=== PATIENT | male | born 1985 | race Caucasian/White ===

== ENCOUNTER 2017-01-12 19:39 | Inpatient (IN) | payer BC ==
[~2017-01-12 19:39] MED LIST: ROCURONIUM BROMIDE INJ 50 MG/5 ML VIAL IV ONE
[2017-01-12] MEDS ORDERED: KETAMINE HCL INJ 500 MG/10 ML VIAL ONE (19:48)
[2017-01-12] MEDS ORDERED: FENTANYL CITRATE INJ/PF 100 MCG/2 ML AMPUL IV PRN (19:58)
[2017-01-12] MEDS ORDERED: NORMAL SALINE 1000 ML 3,000 ML IV ONE (19:58)
[2017-01-12] MEDS ORDERED: KETAMINE HCL INJ 500 MG/10 ML VIAL IV ONE (19:59)
[2017-01-12] MEDS ORDERED: ROCURONIUM BROMIDE INJ 50 MG/5 ML VIAL IV ONE (19:59)
--- NOTE | 2017-01-12 20:02 | ER Document Report ---
ED General - General Stated Complaint: UNCONSCIOUS Time Seen by Provider: 01/12/17 19:56 Cannot obtain history due to: Intoxicated, Unstable vital signs, Altered mental status Notes: Patient is a 31-year-old male with unknown past medical history who presents by EMS after being found obtunded, altered in his camper. Found by family when he did not show to work. No additional history can be obtained at time of arrival as patient is completely comatose. - Related Data Allergies/Adverse Reactions: No Known Allergies Allergy (Unverified 01/12/17 21:14) Home Medications: Current Home Medications Unobtainable [Unobtainable] 01/12/17 [History] Past Medical History - General Information source: Emergency Med Personnel Cannot obtain history due to: Intoxicated, Altered mental status - Social History Smoking Status: Unknown if Ever Smoked Frequency of alcohol use: None Drug Abuse: None Lives with: Family Family History: Reviewed & Not Pertinent Review of Systems - Review of Systems -: Yes ROS unobtainable due to patient's medical condition Physical Exam - Vital signs Vitals: Resp Pulse Ox 22 H 96 01/12/17 19:42 01/12/17 19:42 Interpretation: Hypotensive, Tachycardic, Hypoxic Notes: PHYSICAL EXAMINATION: GENERAL: Obtunded, GCS 3 HEAD: There is a small frontal right scalp hematoma otherwise nontraumatic EYES: Pupils equal round and reactive to light, sclera anicteric, conjunctiva are normal. ENT: nares patent, severely dry oral mucosa NECK: supple without lymphadenopathy LUNGS: Breath sounds clear to auscultation bilaterally and equal. No wheezes rales or rhonchi. HEART: Regular tachycardia without murmurs ABDOMEN: Soft, normoactive bowel sounds. No guarding, no rebound. No masses appreciated. EXTREMITIES: no pitting or edema. No cyanosis. NEUROLOGICAL: No response to noxious stimuli in any extremity. GCS 3. Pupils are 3 mm and sluggishly reactive bilaterally. Positive corneal reflex. Positive gag. PSYCH: obtunded and nonverbal SKIN: Warm, Dry, normal turgor, scattered urticaria along the back Course - Re-evaluation Re-evalutation: 01/12/17 20:01 Patient presents obtunded, GCS of 3, not all protecting his airway. He is hypotensive at time of arrival initial systolic is 82. Patient has no response to noxious stimuli in any extremity although he does have an appropriate pupillary response bilaterally. He has clear breath sounds bilaterally, no focal abdominal tenderness or trauma. FAST exam is normal at the bedside. He does have a small caliber IVC greater than 50% respiratory variation indicating hypovolemia. His oral mucosa was extremely dry. Given his absence of airway protection he was intubated shortly after arrival using ketamine and rocuronium. First pass attempt was successful. A post intubation chest x-ray has been obtained. He will go over for CT of the head and cervical spine to evaluate for possible traumatic injury as the etiology of today's presentation. Laboratories also be sent. Patient is critically ill and will require frequent reassessments. 01/12/17 20:11 Patient continues to be hypotensive, 2 L of fluid has been infused. Post intubation chest x-ray shows appropriate ET tube position, no evidence of pneumothorax or cardiomegaly. Patient was rolled and does have multiple hives on his back and does have ants crawling all over him. He did not have any wheezing on exam but in the setting of cutaneous hives and hypotension the setting of altered mental status he has been empirically treated as possible anaphylactic reaction as the etiology of today's presentation. 0.5 mg of IM epinephrine has been administered. IV Benadryl and Solu-Medrol be given. Will continue to monitor closely. 01/12/17 20:45 Patient's blood pressure has completely normalized, heart rate has also returned close to normal at 106 at this time. I have been able to wean down his FiO2 to 50% and is maintaining saturations of 98%. It is unclear to me at this time whether or not the single dose of IM epinephrine is what cause such a significant improvement of patient's overall clinical picture versus he is now received a total of 3 L of IV fluids and has had normalization of his blood pressure and heart rate secondary to volume repletion in the setting of significant dehydration. Labs continue be pending. A CT of the head, cervical spine both are unremarkable without evidence of acute injury. The patient's cousin has arrived to the patient lives with. He states for the past two weeks the patient has been unwell. 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 He was evaluated at [facility] and told everything was normal. Since then however his cousin reports he has been vomiting regularly, acting lethargic, and often confused. 01/12/17 21:35 Patient's laboratories are beginning to return at this time show metabolic acidosis with a pH of 7.1 only minimally elevated PCO2 which I anticipate was patient's hypoventilation at time of arrival and should be correcting with current ventilator settings. Patient's alcohol level is markedly elevated at 520 which could also expand patient's altered mental status. Pending remainder of labs at this time. Thiamine and folate will be started. Maintenance fluid has been initiated. Patient has received a total of 4 L of fluid. 01/12/17 22:43 Patient's laboratories do now show acute rhabdomyolysis which would explain his acidosis as well as acute kidney dysfunction. An additional liter fluid has been ordered in addition to maintenance fluids. Awaiting to discuss this case with Dr. Lopez for admission patient's vitals have now completely normalized and he has required 50 mg of fentanyl one time for sedation as he was bucking the vent 01/12/17 23:40 Patient remains calm on the ventilator at this time. Vitals remained much improved. I have discussed with Dr. Octavio Lopez who will admit - Vital Signs Vital signs: Temp Pulse Resp BP Pulse Ox 100.6 F H 22 H 127/94 H 96 01/13/17 01:45 01/13/17 01:45 01/13/17 01:31 01/13/17 02:46 - Laboratory Result Diagrams: 01/12/17 20:44 01/13/17 00:15 Laboratory results interpreted by me: 01/12/17 01/12/17 01/12/17 19:43 20:44 20:44 WBC 25.6 H Seg Neuts % (Manual) 85 H Lymphocytes % (Manual) 5 L Abs Neuts (Manual) 23.0 H Carbonic Acid ABG pH ABG pCO2 ABG pO2 ABG HCO3 ABG Total CO2 Sodium 145.7 H Chloride 115 H Carbon Dioxide 15 L Creatinine 2.16 H Est GFR ( Amer) 43 L Est GFR (Non-Af Amer) 35 L Glucose 119 H POC Glucose 128 H Lactic Acid Calcium 6.2 L* AST 253 H Creatine Kinase Total Protein 5.2 L Albumin 2.7 L Urine Protein Urine Blood Serum Alcohol 520 H* 01/12/17 01/12/17 01/12/17 20:44 20:44 20:44 WBC Seg Neuts % (Manual) Lymphocytes % (Manual) Abs Neuts (Manual) Carbonic Acid 1.74 H ABG pH 7.10 L* ABG pCO2 57.9 H ABG pO2 117.9 H ABG HCO3 17.5 L ABG Total CO2 19.3 L Sodium Chloride Carbon Dioxide Creatinine Est GFR ( Amer) Est GFR (Non-Af Amer) Glucose POC Glucose Lactic Acid 3.4 H Calcium AST Creatine Kinase Total Protein Albumin Urine Protein 100 H Urine Blood LARGE H Serum Alcohol 01/12/17 01/12/17 01/13/17 20:44 23:55 00:15 WBC Seg Neuts % (Manual) Lymphocytes % (Manual) Abs Neuts (Manual) Carbonic Acid ABG pH 7.20 L* ABG pCO2 ABG pO2 ABG HCO3 15.6 L ABG Total CO2 16.8 L Sodium Chloride 111 H Carbon Dioxide 14 L Creatinine 1.65 H Est GFR ( Amer) 58 L Est GFR (Non-Af Amer) 48 L Glucose 143 H POC Glucose Lactic Acid Calcium 7.1 L AST Creatine Kinase 65450 H 83511 H Total Protein Albumin Urine Protein Urine Blood Serum Alcohol 470 H* - Diagnostic Test Radiology reviewed: Image reviewed, Reports reviewed Radiology results interpreted by me: 01/13/17 03:46 CT head: No acute intracranial bleed Chest x-ray: ET tube is in the appropriate position. No acute infiltrate - EKG Interpretation by Me Additional EKG results interpreted by me: 01/13/17 03:47 Sinus tachycardia. Rate 121. No ST elevations or depressions. QTC is 466. Procedures - Intubation Orotracheal Time of Intubation: 19:50 Airway evaluation: Normal anatomy, Copious secretions Mallampati Classification: Class 1 Medications: Ketamine, Other - Rocuronium Intubation method: Orotracheal Blade type: Jesse Blade size: 4 Equipment used: Glidescope ETT size: 8.0 ETT secured at: Lips ETT secured at (cm): 23 Breath Sounds after Intubation: Equal End tidal CO2 confirmed: Yes Ventilator settings: SIMV Tidal volume: 450 FiO2: 50 Respirations: 14 PEEP: 5 Post Intubation Xray: Yes Intubation Complications: No complications Critical Care Note - Critical Care Note Total time excluding time spent on procedures (mins): 91 Comments: Critical care time spent obtaining history from patient or surrogate, discussions with consultants, development of treatment plan with patient or surrogate, evaluation of patient's response to treatment, examination of patient , ordering and performing treatments and interventions, ordering and review of laboratory studies, re-evaluation of patient's condition, ordering and review of radiographic studies and review of old charts Discharge - Discharge Clinical Impression: Hypovolemic shock, Metabolic acidosis, Dehydration, Hypocalcemia Alcohol intoxication Qualifiers: Complication of substance-induced condition: with unspecified complication Qualified Code(s): F10.929 - Alcohol use, unspecified with intoxication, unspecified Rhabdomyolysis Qualifiers: Rhabdomyolysis type: non-traumatic Qualified Code(s): M62.82 - Rhabdomyolysis Altered mental status Qualifiers: Altered mental status type: coma Coma depth: [place] coma 3-8 Coma timing: in the field (EMT or ambulance) Qualified Code(s): R40.2431 - [place] coma scale score 3-8, in the field [EMT or ambulance] Condition: Critical Disposition: ADMITTED INPATIENT Admitting Provider: [facility] Admitted: ICU
[2017-01-12] MEDS ORDERED: NALOXONE HCL INJ 2 MG/2 ML DISP.SYRIN ONE (20:06)
[2017-01-12] MEDS ORDERED: EPINEPHRINE INJ/PF 1 MG/1 ML AMPULE ONE (20:09)
[2017-01-12] MEDS ORDERED: DIPHENHYDRAMINE HCL 50 MG/ML VIAL ONE (20:14)
[2017-01-12] MEDS ORDERED: METHYLPREDNISOLONE INJ 125 MG/2 ML SDV ONE (20:14)
--- NOTE | 2017-01-12 20:17 | RADIOLOGY REPORT (SQ) ---
EXAM DESCRIPTION: CHEST SINGLE VIEW COMPLETED DATE/TIME: 01/12/2017 8:09 pm REASON FOR STUDY: ams, post intubation COMPARISON: None. EXAM PARAMETERS: NUMBER OF VIEWS: One view TECHNIQUE: Single frontal radiograph of the chest. RADIATION DOSE: N/A LIMITATIONS: None. FINDINGS: TEMPORARY SUPPORT DEVICES:ETT in expected location. NG tube courses below the jennifer-diaphr agm in to the stomach. LUNGS AND PLEURA: No opacities. No masses. No effusions. No pneumothorax. MEDIASTINUM AND HILAR STRUCTURES: No masses. Contour normal. HEART AND VASCULAR STRUCTURES: Heart size normal. Normal vascularity. Aorta normal for age BONES: No acute findings. OTHER: No other significant finding. IMPRESSION: NO ACUTE RADIOGRAPHIC FINDING IN THE CHEST. SUPPORT DEVICE(S) IN EXPECTED LOCATIONS. TECHNICAL DOCUMENTATION: JOB ID: [id number] [employer]- All Rights Reserved
--- NOTE | 2017-01-12 20:38 | RADIOLOGY REPORT (SQ) ---
EXAM DESCRIPTION: CT HEAD WITHOUT COMPLETED DATE/TIME: 01/12/2017 8:23 pm REASON FOR STUDY: unconscious for unknown reason COMPARISON: None. TECHNIQUE: Axial images acquired through the brain without intravenous contrast. Images reviewed wi th bone, brain and subdural windows. Images stored on PACS. All CT scanners at this facility use dose modulation, iterative reconstruction, and/or weight based d osing when appropriate to reduce radiation dose to as low as reasonably achievable (ALARA). [facility]: Dose Right [facility]: CareDose [facility]: Dose Right [facility]: Teradose 4D [facility]: [employer] RADIATION DOSE: Up-to-date CT equipment and radiation dose reduction techniques were employed. CTDIv ol: 64.6 mGy. DLP: 1292 mGy-cm. mGy. LIMITATIONS: None. FINDINGS: VENTRICLES: Normal size and contour. CEREBRUM: No masses. No hemorrhage. No midline shift. Normal merrill/white matter differentiation. N o evidence for acute infarction. CEREBELLUM: No masses. No hemorrhage. No alteration of density. No evidence for acute infarction. EXTRAAXIAL SPACES: No fluid collections. No masses. ORBITS AND GLOBE: No intra- or extraconal masses. Normal contour of globe without masses. CALVARIUM: No fracture. PARANASAL SINUSES: No fluid or mucosal thickening. SOFT TISSUES: No mass or hematoma. OTHER: No other significant finding. IMPRESSION: NORMAL BRAIN CT WITHOUT CONTRAST. TECHNICAL DOCUMENTATION: JOB ID: [id number] Quality ID # [id number]: Final reports with documentation of one or more dose reduction techniques (e.g., Au tomated exposure control, adjustment of the mA and/or kV according to patient size, use of iterative reconstruction technique) 2010 [employer]- All Rights Reserved
--- NOTE | 2017-01-12 20:40 | RADIOLOGY REPORT (SQ) ---
EXAM DESCRIPTION: CT CERVICAL SPINE WITHOUT COMPLETED DATE/TIME: 01/12/2017 8:27 pm REASON FOR STUDY: unconscious for unknown reason COMPARISON: None. TECHNIQUE: Axial images acquired through the cervical spine without intravenous contrast. Images re viewed with lung, soft tissue and bone windows. Reconstructed coronal and sagittal MPR images review ed. Images stored on PACS. All CT scanners at this facility use dose modulation, iterative reconstruction, and/or weight based d osing when appropriate to reduce radiation dose to as low as reasonably achievable (ALARA). [facility]: Dose Right [facility]: CareDose [facility]: Dose Right [facility]: Teradose 4D [facility]: [employer] RADIATION DOSE: Up-to-date CT equipment and radiation dose reduction techniques were employed. CTDIv ol: 15.7 mGy. DLP: 359 mGy-cm. mGy. LIMITATIONS: None. FINDINGS: ALIGNMENT: Anatomic. MINERALIZATION: Normal. VERTEBRAL BODIES: No fractures or dislocation. DISCS: No significant disc disease. FACETS, LATERAL MASSES, POSTERIOR ELEMENTS: No fractures. No dislocation. No acute findings. HARDWARE: None in the spine. VISUALIZED RIBS: No fractures. LUNG APICES AND SOFT TISSUES: No significant or acute findings. OTHER: Intubated. NG tube. IMPRESSION: NO ACUTE OR SIGNIFICANT FINDINGS IN THE CERVICAL SPINE. TECHNICAL DOCUMENTATION: JOB ID: [id number] Quality ID # [id number]: Final reports with documentation of one or more dose reduction techniques (e.g., Au tomated exposure control, adjustment of the mA and/or kV according to patient size, use of iterative reconstruction technique) 2010 [employer]- All Rights Reserved
[2017-01-12 21:07] LABS: HEMATOCRIT 46.7 % (37.9-51.0); HEMOGLOBIN 15.4 g/dL (13.5-17.0); HGB HCT DIFFERENCE -0.5; MEAN CORPUSCULAR HGB CONC 33.1 g/dL (32.0-36.0); MEAN CORPUSCULAR VOLUME 91 fl (80-97); RED BLOOD COUNT 5.14 10^6/uL (4.35-5.55); RED CELL DISTRIBUTION WIDTH 13.5 % (11.5-14.0); WHITE BLOOD COUNT 25.6 10^3/uL (4.0-10.5)
[2017-01-12 21:23] LABS: BAND NEUTROPHILS % (MANUAL) 5 % (3-5); BASOPHILS % (MANUAL) 0 % (0-2); EOSINOPHILS % (MANUAL) 0 % (0-6); LYMPHOCYTES % (MANUAL) 5 % (13-45); TOTAL CELLS COUNTED 100
[2017-01-12 21:24] LABS: ALANINE AMINOTRANSFERASE 66 U/L (21-72); ALBUMIN 2.7 g/dL (3.5-5.0); ALKALINE PHOSPHATASE 49 U/L (38-126); ANION GAP 16 (5-19); ASPARTATE AMINO TRANSFERASE 253 U/L (17-59); BILIRUBIN,DIRECT 0.2 mg/dL (0.0-0.4); BILIRUBIN,TOTAL 0.2 mg/dL (0.2-1.3); BLOOD UREA NITROGEN 8 mg/dL (7-20); CARBON DIOXIDE 15 mmol/L (22-30); CHLORIDE 115 mmol/L (98-107); CREATININE RESULT 2.16 mg/dL (0.52-1.25); GLUCOSE 119 mg/dL (75-110); SODIUM 145.7 mmol/L (137-145); TOTAL PROTEIN 5.2 g/dL (6.3-8.2)
[2017-01-12 21:27] LABS: BURR CELLS 1+; OVALOCYTES SLIGHT; POIKILOCYTOSIS SLIGHT; TOXIC GRANULATION SLIGHT
[2017-01-12 21:29] LABS: ARTERIAL BLOOD BASE EXCESS -12.8 mmol/L; ARTERIAL BLOOD O2 SATURATION 96.7 % (94-98)
[2017-01-12 21:35] LABS: ALCOHOL 520 mg/dL (NONE DETECTED); CALCIUM 6.2 mg/dL (8.4-10.2)
[2017-01-12] MEDS ORDERED: THIAMINE HCL 100 MG, FOLIC ACID 1 MG in NORMAL SALINE 50 ML IV ONE (21:35)
[2017-01-12] MEDS ORDERED: NORMAL SALINE 1000 ML 1,000 ML IV ONE ×2 (21:36→22:35)
[2017-01-12 21:37] LABS: ADD ON TESTING BLD IN LAB ACKNOWLEDGE; AMORPHOUS SEDIMENT,URINE TRACE /HPF; BILIRUBIN,URINE NEGATIVE (NEGATIVE); GLUCOSE, URINE NEGATIVE (NEGATIVE); KETONES,URINE NEGATIVE (NEGATIVE); LEUKOCYTE ESTERASE,URINE NEGATIVE (NEGATIVE); NITRITE,URINE NEGATIVE (NEGATIVE); PROTEIN,URINE 100 mg/dL (NEGATIVE); URINE SPECIFIC GRAVITY 1.029; UROBILINOGEN,URINE NEGATIVE mg/dL (<2.0)
[2017-01-12 21:38] LABS: APPEARANCE,URINE SLIGHTLY-CLOUDY
[2017-01-12] MEDS ORDERED: CEFTRIAXONE 1 GM/D5W RTU 50 ML IV ONE (21:39)
[2017-01-12] MEDS ORDERED: CALCIUM GLUCONATE 1000 MG/10 ML INJ IV ONE (21:40)
[2017-01-12 21:45] LABS: URINE BARBITURATES SCREEN NEGATIVE; URINE METHADONE SCREEN NEGATIVE; URINE OPIATES LOW NEGATIVE; URINE PHENCYCLIDINE SCREEN NEGATIVE
[2017-01-12 22:26] LABS: CREATINE KINASE 19727 U/L (55-170)
[2017-01-12] MEDS ORDERED: THIAMINE HCL INJ 200 MG/2 ML VIAL ONE (23:27)
[2017-01-12] MEDS ORDERED: FOLIC ACID INJ 5 MG/1 ML 10 ML VIAL ONE (23:27)
[2017-01-12] MEDS ORDERED: NORMAL SALINE 1000 ML 1,000 ML IV PRN (23:43)
[2017-01-13 00:08] LABS: ARTERIAL BLOOD BASE EXCESS -11.9 mmol/L; ARTERIAL BLOOD O2 SATURATION 95.6 % (94-98)
[2017-01-13] MEDS ORDERED: DEXTROSE 50%-WATER 25 GM/50 ML DISP.SYRIN IV PRN ×2 (00:59)
[2017-01-13] MEDS ORDERED: GLUCAGON,HUMAN RECOMB 1 MG INJ SUBCUT PRN (00:59)
[2017-01-13] MEDS ORDERED: DEXTROSE 40% GEL 15 GM TUBE PO PRN ×2 (00:59)
[2017-01-13 01:01] LABS: ALBUMIN 3.8 g/dL (3.5-5.0); ANION GAP 19 (5-19); BLOOD UREA NITROGEN 7 mg/dL (7-20); CARBON DIOXIDE 14 mmol/L (22-30); CHLORIDE 111 mmol/L (98-107); CREATININE RESULT 1.65 mg/dL (0.52-1.25); GLUCOSE 143 mg/dL (75-110); MAGNESIUM 2.2 mg/dL (1.6-2.3); POTASSIUM 4.6 mmol/L (3.6-5.0); SODIUM 143.5 mmol/L (137-145)
[2017-01-13] MEDS ORDERED: PROMETHAZINE HCL 25 MG SUPP.RECT PR PRN (01:09)
[2017-01-13] MEDS ORDERED: NORMAL SALINE 1000 ML 1,000 ML IV PRN ×2 (01:11→20:26)
[2017-01-13] MEDS ORDERED: FAMOTIDINE INJ/PF 20 MG/2 ML SDV IV ONE (01:15)
--- NOTE | 2017-01-13 01:30 | PDOC H&P ---
History of Present Illness Admission Date/PCP: 01/12/17 23:54 Primary care provider none Patient complains of: Unresponsive History of Present Illness: BLAINE CANDELARIO is a 31 year old male, with known chronic tobacco and alcohol dependence, brought to the emergency room for above complaint, after being found by family or friends on the floor of his camper. Reportedly surrounded by empty alcohol bottles. Patient has been discussed with emergency room physician who evaluated the patient. Patient is intubated and still under the influence of severe acute alcohol intoxication and is able to provide no history whatsoever in terms of acute or chronic events, review of systems, personal habits, family history, etc. No friends or family are present. No prior inpatient records available for review. Upon arrival, hypotensive, with a [place] Coma Scale of 3. Intubated for airway protection by emergency room physician. Pressure has responded nicely to IV fluid, not requiring any vasopressor. Has not required any sedation since initial intubation with 50 mcg of fentanyl approximately 7:30 PM. Has been breathing over the ventilator. Pupils equal and reactive to light. Was found with ants crawling on him, along with perhaps some ant bites on his posterior skin with hives. Was given half milligram of intramuscular epinephrine, but overall, his clinical picture was not felt consistent with anaphylactic reaction. According to cousin, who was present earlier, he has not been well for the past 2 weeks, stumbling and falling. Was evaluated in [place] emergency room 2 weeks ago after suffering a syncopal episode at a construction site. Discharged from the emergency room. Since then, regular episodes of vomiting, with confusion and lethargy. No further information available this point in time.. Dictation via voice recognition software. Laboratory results are listed in [facility] and are reviewed. X-ray summary results are listed below, with full report(s) reviewed. . EKG reviewed. No prior EKG available for comparison. Social history/personal habits: Reportedly living in a camper. Heavy tobacco and alcohol use. Reportedly no illicit drug use. No further information available this point in time. No known drug allergies Home medications reportedly none. REVIEW OF SYSTEMS: See history and present illness. No further information available this point in time. PHYSICAL EXAMINATION: 67 kg. Height is not recorded on the chart. Blood pressure 124/97. Pulse 102 and regular. Respirations are 20 and unlabored. 96% saturation on 40% FiO2, PEEP of 5, respiratory rate of 14, tidal volume 450, pressure support 10, SIMV/ volume control. Well-nourished well-developed young male. Intubated on ventilator. Does not respond to name. Skin is warm and dry. Reportedly has an unremarkable appearing sebaceous cyst on his back. Tattoo overlying his sternum. Approximately a 3 x 4 cm slightly inflamed slightly raised nodule on his right upper forehead; insect bite? Lesion Does not have the typical appearance of hematoma or sebaceous cyst. ENT: Hearing cannot be adequately evaluated due to his current status. No azar sign. Eyes: No scleral icterus. Pupils equal and reactive to light at 4 mm. [place] conjunctivae. No raccoon eyes. Neck is nontender to palpation. Midline trachea. No palpable thyroid nodule mass enlargement or tenderness. Lymphatic: No palpable cervical or clavicular nodes. Neck and lymphatic exams limited by patient body habitus along with endotracheal tube strap. Psychiatric: Cannot be adequately evaluated due to his current status. Lungs: Auscultation reveals clear and equal breath sounds bilaterally. No use of accessory respiratory muscles. Cardiovascular: Heart regular rate and rhythm, without gallop murmur or rub. No carotid or abdominal aortic bruits. No ankle or pedal edema. Faintly palpable dorsalis pedis pulses. Abdomen:soft nontender with positive bowel sounds. No upper abdominal mass or organomegaly palpated. Extremities: Hands and feet are warm and dry. No calf tenderness to compression. No grossly obvious visual evidence of upper or lower extremity swelling. Gentle manipulation of lower extremities fails to reveal any obvious evidence of injury or instability to knees hips or ankles. Soft restraints on wrists. Neurologic: Patellar reflexes absent. Absent Babinski. Light touch cannot be adequately evaluated due to his current status.. No nystagmus. No rigidity. No ankle clonus. Past Medical History Past Medical History: No further information available this point in time. Psychiatric Medical History: Reports: Alcohol Dependency, Tobacco Dependency Past Surgical History Past Surgical History: No information available this point in time. Past Surgical History: Reports: None Social History Information Source: Emergency Med Personnel, [facility] Records Smoking Status: Current Every Day Smoker Frequency of Alcohol Use: Heavy Drugs: None - No information available this point in time. - Advance Directive Resuscitation Status: Full Code Surrogate healthcare decision maker:: Uncertain at this time. Family History Parental Family History Reviewed: No - No information available this point in time. Children Family History Reviewed: No - No information available this point in time. Sibling(s) Family History Reviewed.: No - No information available this point in time. Medication/Allergy Home Medications: Unobtainable [Unobtainable] 01/12/17 Allergies/Adverse Reactions: No Known Allergies Allergy (Unverified 01/12/17 21:14) Physical Exam Vital Signs: Temp Pulse Resp BP Pulse Ox 100.6 F H 21 H 128/92 H 97 01/13/17 01:05 01/13/17 01:05 01/13/17 01:01 01/13/17 01:05 Results Laboratory Results: 01/12/17 23:55 Carbonic Acid 1.23 HCO3/H2CO3 Ratio 12:1 ABG pH 7.20 L* ABG pCO2 40.7 ABG pO2 94.4 ABG HCO3 15.6 L ABG O2 Saturation 95.6 ABG Base Excess -11.9 FiO2 40% Impressions: Cervical Spine CT 01/12/17 00:00 IMPRESSION: NO ACUTE OR SIGNIFICANT FINDINGS IN THE CERVICAL SPINE. Head CT 01/12/17 00:00 IMPRESSION: NORMAL BRAIN CT WITHOUT CONTRAST. Chest X-Ray 01/12/17 19:57 IMPRESSION: NO ACUTE RADIOGRAPHIC FINDING IN THE CHEST. SUPPORT DEVICE(S) IN EXPECTED LOCATIONS. Assessment & Plan - Diagnosis (1) Acute encephalopathy Is this a current diagnosis for this admission?: YesPlan: Probably multifactorial, but due in large part due to his acute alcohol intoxication. Should clear with time and treatment. (2) Acute respiratory failure Qualifiers: Respiratory failure complication: unspecified whether with hypoxia or hypercapnia Qualified Code(s): J96.00 - Acute respiratory failure, unspecified whether with hypoxia or hypercapnia Is this a current diagnosis for this admission?: YesPlan: Tolerating ventilator nicely, with excellent saturation on quite acceptable FiO2. Pulmonology consult. (3) Alcohol dependence Qualifiers: Substance use status: with intoxication Complication of substance- induced condition: with unspecified complication Qualified Code(s): F10.229 - Alcohol dependence with intoxication, unspecified Is this a current diagnosis for this admission?: YesPlan: Daily banana bag. Patient observed over time by ICU nursing staff to be moving all 4 extremities; Ativan drip started for sedation. (4) Alcohol intoxication Qualifiers: Complication of substance-induced condition: with unspecified complication Qualified Code(s): F10.929 - Alcohol use, unspecified with intoxication , unspecified Is this a current diagnosis for this admission?: YesPlan: Shortly after 3 AM, I had lengthy telephone conversation with Dr. carter on- call police shift commander at [facility]. He agreed with our plans for supportive care. Subsequently, I had a somewhat lengthy telephone call with patient's cousin, Stalin Martinez who had visited the emergency room earlier when the patient was initially admitted. Mr. Martinez stated that neither he nor family or friends were aware Mr. Candelario was drinking as much as he was. As best as he can estimate, patient's last alcohol intake with either late Friday night or early Friday morning. States he has been drinking Zooppa's gin, along with homemade moonshine, he thinks provided by another individual. No health problems other than tobacco use, 2 packs a day, along with the above- noted alcohol abuse. No illicit drug use. No known drug allergies. No regular physician. Takes 2-3 Aleve on most days due to back pain. Patient is single. No children. Mother lives several states away, but reportedly is not mentally capable of making health care decisions. 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 [employer]. Cousin is to call the hospital later today with uncle's phone number. I subsequently spoke again by phone with Dr. carter at [facility]. He recommended obtaining ethylene glycol and methanol levels, and if at all possible obtain lab results same day. He stated the closest lab that would run those levels is [facility]. He recommended also obtaining serial serum alcohol levels, and once the serum alcohol level drops below 100, give the patient 15 mg/kg of Fomepizole. Several phone calls were had with Jennifer in the lab at our hospital concerning the importance of same day lab results on the ethylene glycol and methanol levels. She stated she would discuss the matter with a lab supervisor net making and get back with the day team. I instructed her to call [phone]. (5) Elevated LFTs Is this a current diagnosis for this admission?: YesPlan: Follow-up chemistry. (6) Hypernatremia Is this a current diagnosis for this admission?: YesPlan: Appropriate IV fluid adjustment. Follow-up chemistry. (7) Hypocalcemia Is this a current diagnosis for this admission?: YesPlan: Serial chemistry. Further supplementation as needed. (8) Hypovolemic shock Is this a current diagnosis for this admission?: YesPlan: Resolved nicely with IV fluids, without need for vasopressor. ICU admission. (9) Leukocytosis Qualifiers: Leukocytosis type: unspecified Qualified Code(s): D72.829 - Elevated white blood cell count, unspecified Is this a current diagnosis for this admission?: Yes (10) Metabolic acidosis Is this a current diagnosis for this admission?: YesPlan: Should clear with time and treatment. (11) Renal insufficiency Is this a current diagnosis for this admission?: YesPlan: No prior labs available for comparison. Serial chemistry. (12) Rhabdomyolysis Qualifiers: Rhabdomyolysis type: non-traumatic Qualified Code(s): M62.82 - Rhabdomyolysis Is this a current diagnosis for this admission?: YesPlan: Serial CPK. Vigorous IV fluid hydration. IV Pepcid for gastritis prophylaxis, with dosage adjusted for renal status. Knee high SCDs for DVT prophylaxis, along with subcutaneous heparin. Time spent in evaluation and management of patient: 130 critical care minutes. (13) Tobacco dependency Is this a current diagnosis for this admission?: Yes (14) Aspiration into airway Qualifiers: Encounter type: initial encounter Qualified Code(s): T17.908A - Unspecified foreign body in respiratory tract, part unspecified causing other injury, initial encounter Is this a current diagnosis for this admission?: YesPlan: Somewhat thick arango material suctioned by respiratory therapy through ET tube. Antibiotic coverage started for probable aspiration. - Time Critical Time spent with patient: 35 or more minutes Anticipated discharge: Home Within: Other - Inpatient Certification Based on my medical assessment, after consideration of the patient's comorbidities, presenting symptoms, or acuity I expect that the services needed warrant INPATIENT care.: Yes I certify that my determination is in accordance with my understanding of Medicare's requirements for reasonable and necessary INPATIENT services [42 CFR 412.3e].: Yes Medical Necessity: Need Close Monitoring Due to Risk of Patient Decompensation, Need For IV Fluids, Need For Continuous Telemetry Monitoring, Risk of Diagnosis Which Will Require Inpatient Eval/Care/Monitoring Post Hospital Care: D/C or Transfer Summary - Plan Summary Plan Summary: Patient discussed in detail with day hospitalist team.
[2017-01-13 01:38] LABS: PARTIAL THROMBOPLASTIN TIME 20.8 SEC (23.5-35.8); PROTHROMBIN TIME 13.7 SEC (11.4-15.4)
[2017-01-13 02:13] LABS: CREATINE KINASE 53307 U/L (55-170)
[2017-01-13 02:15] LABS: CALCIUM 7.1 mg/dL (8.4-10.2)
[2017-01-13] MEDS ORDERED: LORAZEPAM INJ 2 MG/1 ML VIAL ONE (02:43)
[2017-01-13] MEDS ORDERED: PHARMACY COMMUNICATION ORDER MC SCH (02:45)
[2017-01-13] MEDS ORDERED: AMPICILLIN SOD/SULBACTAM 3 GM VIAL IV PRN (02:49)
[2017-01-13] MEDS: NORMAL SALINE 1000 ML 1,000 ML IV PRN ×4 (02:58→17:01)
[2017-01-13] MEDS ORDERED: AMPICILLIN SOD/SULBACTAM 3 GM VIAL ONE (03:02)
[2017-01-13] MEDS: AMPICILLIN SODIUM/SULBACTAM NA 3 GM in NORMAL SALINE 100 ML IV SCH ×3 (03:05→14:08)
[2017-01-13] MEDS: ACETAMINOPHEN 650 MG SUPP.RECT PR PRN (03:12)
--- NOTE | 2017-01-13 03:36 | EKG REPORT ---
SEVERITY:- OTHERWISE NORMAL ECG - SINUS TACHYCARDIA : Confirmed by: Deepa Jasso MD 13-Jan-2017 03:35:59
--- NOTE | 2017-01-13 04:25 | RADIOLOGY REPORT (SQ) ---
EXAM DESCRIPTION: SHOULDER RIGHT 2 OR MORE VIEWS COMPLETED DATE/TIME: 01/13/2017 3:46 am REASON FOR STUDY: abn exam COMPARISON: CR, chest, 01/12/2017. NUMBER OF VIEWS: Two views. TECHNIQUE: 2 images acquired of the right shoulder. LIMITATIONS: Portable AP and scapular Y-view. FINDINGS: MINERALIZATION: Normal. BONES: No acute fracture or dislocation. No worrisome bone lesions. JOINTS: Mild anterior subluxation appearance of the right glenohumeral joint on limited views. VISUALIZED LUNGS AND RIBS: No pneumothorax. No rib fracture. SOFT TISSUES: No radiopaque foreign body. OTHER: No other significant finding. Likely adequate NG tube partially imaged as correlated with rad iographs from 1 day prior. IMPRESSION: Mild anterior subluxation pattern of the right glenohumeral joint on limited views ; thi s appearance is likely positional/ projectional and it is not seen on chest radiographs from 7. TECHNICAL DOCUMENTATION: JOB ID: [id number] [employer]- All Rights Reserved
[2017-01-13 04:42] LABS: VENOUS BLOOD BASE EXCESS -10.6 mmol/L; VENOUS BLOOD HCO3 16.2 mmol/L (20-32); VENOUS BLOOD PH 7.24 (7.30-7.42)
[2017-01-13 04:50] LABS: ABSOLUTE LYMPHOCYTES (AUTO) 1.2 10^3/uL (0.5-4.7); ABSOLUTE MONOCYTES (AUTO) 1.2 10^3/uL (0.1-1.4); ABSOLUTE NEUT (AUTO) 17.4 10^3/uL (1.7-8.2); BASOPHILS % (AUTO) 0.1 % (0-2); HEMATOCRIT 48.5 % (37.9-51.0); HEMOGLOBIN 16.2 g/dL (13.5-17.0); HGB HCT DIFFERENCE 0.1; MEAN CORPUSCULAR HEMOGLOBIN 29.7 pg (27.0-33.4); MEAN CORPUSCULAR HGB CONC 33.3 g/dL (32.0-36.0); MEAN CORPUSCULAR VOLUME 89 fl (80-97); RED BLOOD COUNT 5.44 10^6/uL (4.35-5.55); RED CELL DISTRIBUTION WIDTH 13.5 % (11.5-14.0); SEGMENTED NEUTROPHILS % (AUTO) 87.9 % (42-78); WHITE BLOOD COUNT 19.8 10^3/uL (4.0-10.5)
[2017-01-13] MEDS ORDERED: FOMEPIZOLE INJ 1.5 GM/1.5 ML VIAL IV ONE (05:02)
[2017-01-13 05:16] LABS: ANION GAP 14 (5-19); BLOOD UREA NITROGEN 7 mg/dL (7-20); CARBON DIOXIDE 13 mmol/L (22-30); CHLORIDE 113 mmol/L (98-107); CREATININE RESULT 1.21 mg/dL (0.52-1.25); GLUCOSE 146 mg/dL (75-110)
[2017-01-13 05:33] LABS: CREATINE KINASE 51576 U/L (55-170)
[2017-01-13 05:34] LABS: CALCIUM 6.5 mg/dL (8.4-10.2)
[2017-01-13 06:10] LABS: ADD ON TESTING BLD IN LAB ACKNOWLEDGE
[2017-01-13 06:18] LABS: ALBUMIN 2.6 g/dL (3.5-5.0)
[2017-01-13 06:22] LABS: ARTERIAL BLOOD BASE EXCESS -11.7 mmol/L; ARTERIAL BLOOD O2 SATURATION 95.3 % (94-98)
[2017-01-13 08:55] LABS: ALCOHOL 233 mg/dL (NONE DETECTED); ANION GAP 11 (5-19); BLOOD UREA NITROGEN 8 mg/dL (7-20); CARBON DIOXIDE 14 mmol/L (22-30); CHLORIDE 114 mmol/L (98-107); CREATININE RESULT 1.13 mg/dL (0.52-1.25); GLUCOSE 125 mg/dL (75-110); POTASSIUM 3.9 mmol/L (3.6-5.0); SODIUM 138.9 mmol/L (137-145)
[2017-01-13 09:18] LABS: CREATINE KINASE 50524 U/L (55-170)
[2017-01-13] MEDS ORDERED: CALCIUM GLUCONATE 1000 MG/10 ML INJ IV ONE ×2 (10:00→14:07)
[2017-01-13] MEDS: LORAZEPAM 24 MG/ D5W 240 ML IV PRN ×2 (11:30→18:30)
--- NOTE | 2017-01-13 12:37 | PDOC CONSULTATION ---
Consultation Consult Date: 01/13/17 Attending physician:: EFREN ZAMORA Consult reason:: acute resp failure History of Present Illness Admission Date/PCP: 01/13/17 00:59 History of Present Illness: 31-year-old male long history of chronic alcohol abuse as well as chronic tobacco abuse who was found obtunded apparent with ant bites over his skin was subsequently brought to the emergency room intubated to protect his airway as he was unresponsive to any intervention he is currently intubated sedated in the ICU Past Medical History GI Medical History: Reports: Gastroesophageal Reflux Disease Psychiatric Medical History: Reports: Alcohol Dependency, Tobacco Dependency Past Surgical History Past Surgical History: Reports: None Social History Information Source: [facility] Records Lives with: Family Smoking Status: Current Every Day Smoker Frequency of Alcohol Use: Heavy Drugs: None - No information available this point in time. - Advance Directive Resuscitation Status: Full Code Family History Family History: Reviewed & Not Pertinent Parental Family History Reviewed: No Children Family History Reviewed: No Sibling(s) Family History Reviewed.: No Medication/Allergy Home Medications: Unobtainable [Unobtainable] 01/12/17 Allergies/Adverse Reactions: No Known Allergies Allergy (Unverified 01/12/17 21:14) Review of Systems ROS unobtainable: Due to endotracheal tube Physical Exam Vital Signs: Temp Pulse Resp BP Pulse Ox 99.5 F 91 23 H 124/91 H 97 01/13/17 07:58 01/13/17 07:58 01/13/17 07:58 01/13/17 07:58 01/13/17 07:58 Intake & Output 01/12/17 01/13/17 01/14/17 06:59 06:59 06:59 Intake Total 3768 Output Total 1555 175 Balance 2213 -175 Weight 68.6 kg General appearance: PRESENT: no acute distress, disheveled, well-developed, well -nourished Head exam: PRESENT: atraumatic, normocephalic Eye exam: PRESENT: conjunctiva pale Mouth exam: PRESENT: dry mucosa, neck supple, tongue midline, other - ET tube in place Neck exam: ABSENT: carotid bruit, JVD, lymphadenopathy, thyromegaly Respiratory exam: PRESENT: decreased breath sounds, prolonged expiratory phas, rhonchi, symmetrical, unlabored Cardiovascular exam: PRESENT: RRR, +S1, +S2 Pulses: PRESENT: normal radial pulses GI/Abdominal exam: PRESENT: ascites Rectal exam: PRESENT: deferred Gentrourinary exam: PRESENT: indwelling catheter Musculoskeletal exam: PRESENT: normal inspection Skin exam: PRESENT: dry, warm Results Laboratory Results: 01/13/17 04:25 01/13/17 04:25 01/13/17 01/13/17 01/13/17 01:13 02:23 04:25 WBC 19.8 H RBC 5.44 Hgb 16.2 Hct 48.5 MCV 89 MCH 29.7 MCHC 33.3 RDW 13.5 Plt Count 227 Seg Neutrophils % 87.9 H Lymphocytes % 6.0 L Monocytes % 6.0 Eosinophils % 0.0 Basophils % 0.1 Absolute Neutrophils 17.4 H Absolute Lymphocytes 1.2 Absolute Monocytes 1.2 Absolute Eosinophils 0.0 Absolute Basophils 0.0 Carbonic Acid HCO3/H2CO3 Ratio ABG pH ABG pCO2 ABG pO2 ABG HCO3 ABG O2 Saturation ABG Base Excess VBG pH VBG pCO2 VBG HCO3 VBG Base Excess FiO2 Sodium Potassium Chloride Carbon Dioxide Anion Gap BUN Creatinine Est GFR ( Amer) Est GFR (Non-Af Amer) Glucose Lactic Acid Cancelled 3.8 H Calcium Albumin 01/13/17 01/13/17 01/13/17 04:25 04:25 04:25 WBC RBC Hgb Hct MCV MCH MCHC RDW Plt Count Seg Neutrophils % Lymphocytes % Monocytes % Eosinophils % Basophils % Absolute Neutrophils Absolute Lymphocytes Absolute Monocytes Absolute Eosinophils Absolute Basophils Carbonic Acid HCO3/H2CO3 Ratio ABG pH ABG pCO2 ABG pO2 ABG HCO3 ABG O2 Saturation ABG Base Excess VBG pH 7.24 L VBG pCO2 39.0 VBG HCO3 16.2 L VBG Base Excess -10.6 FiO2 Sodium 140.0 Potassium 4.0 Chloride 113 H Carbon Dioxide 13 L Anion Gap 14 BUN 7 Creatinine 1.21 Est GFR ( Amer) > 60 Est GFR (Non-Af Amer) > 60 Glucose 146 H Lactic Acid Calcium 6.5 L* Albumin 2.6 L 01/13/17 06:00 WBC RBC Hgb Hct MCV MCH MCHC RDW Plt Count Seg Neutrophils % Lymphocytes % Monocytes % Eosinophils % Basophils % Absolute Neutrophils Absolute Lymphocytes Absolute Monocytes Absolute Eosinophils Absolute Basophils Carbonic Acid 0.95 L HCO3/H2CO3 Ratio 14:1 ABG pH 7.26 L ABG pCO2 31.5 L ABG pO2 86.0 ABG HCO3 13.9 L ABG O2 Saturation 95.3 ABG Base Excess -11.7 VBG pH VBG pCO2 VBG HCO3 VBG Base Excess FiO2 35% Sodium Potassium Chloride Carbon Dioxide Anion Gap BUN Creatinine Est GFR ( Amer) Est GFR (Non-Af Amer) Glucose Lactic Acid Calcium Albumin 01/13/17 04:25 Creatine Kinase 66174 H Impressions: Cervical Spine CT 01/12/17 00:00 IMPRESSION: NO ACUTE OR SIGNIFICANT FINDINGS IN THE CERVICAL SPINE. Head CT 01/12/17 00:00 IMPRESSION: NORMAL BRAIN CT WITHOUT CONTRAST. Chest X-Ray 01/12/17 19:57 IMPRESSION: NO ACUTE RADIOGRAPHIC FINDING IN THE CHEST. SUPPORT DEVICE(S) IN EXPECTED LOCATIONS. Shoulder X-Ray 01/13/17 00:00 IMPRESSION: Mild anterior subluxation pattern of the right glenohumeral joint on limited views ; this appearance is likely positional/ projectional and it is not seen on chest radiographs from 01/12/2017. Assessment & Plan - Diagnosis (1) Alcohol dependence Qualifiers: Substance use status: with intoxication Complication of substance- induced condition: with unspecified complication Qualified Code(s): F10.229 - Alcohol dependence with intoxication, unspecified Is this a current diagnosis for this admission?: YesPlan: Prophylaxis for delirium tremens alcohol withdrawal (2) Alcohol intoxication Qualifiers: Complication of substance-induced condition: with unspecified complication Qualified Code(s): F10.929 - Alcohol use, unspecified with intoxication, unspecified Is this a current diagnosis for this admission?: Yes (3) Altered mental status Qualifiers: Altered mental status type: coma Coma depth: [place] coma 3-8 Coma timing: in the field (EMT or ambulance) Qualified Code(s): R40.2431 - [place] coma scale score 3-8, in the field [EMT or ambulance] Is this a current diagnosis for this admission?: Yes (4) Dehydration Is this a current diagnosis for this admission?: YesPlan: Volume resuscitation (5) Metabolic acidosis Is this a current diagnosis for this admission?: Yes (6) Rhabdomyolysis Qualifiers: Rhabdomyolysis type: non-traumatic Qualified Code(s): M62.82 - Rhabdomyolysis Is this a current diagnosis for this admission?: YesPlan: Volume resuscitation - Time Critical Time spent with patient: 35 or more minutes - 45 minutes
[2017-01-13 13:15] LABS: ALCOHOL 143 mg/dL (NONE DETECTED); ANION GAP 14 (5-19); BLOOD UREA NITROGEN 10 mg/dL (7-20); CARBON DIOXIDE 13 mmol/L (22-30); CHLORIDE 113 mmol/L (98-107); CREATININE RESULT 1.05 mg/dL (0.52-1.25); GLUCOSE 126 mg/dL (75-110); POTASSIUM 3.7 mmol/L (3.6-5.0); SODIUM 139.5 mmol/L (137-145)
[2017-01-13 13:38] LABS: CALCIUM 6.5 mg/dL (8.4-10.2)
[2017-01-13 13:49] LABS: CREATINE KINASE 55460 U/L (55-170)
[2017-01-13] MEDS ORDERED: DEXAMETHASONE SOD PHOS INJ 10 MG/1 ML VIAL IV SCH ×2 (14:00→15:00)
[2017-01-13] MEDS ORDERED: PROPOFOL 100 ML IV ONE (14:01)
[2017-01-13] MEDS: FAMOTIDINE INJ/PF 20 MG/2 ML SDV IV SCH ×2 (14:10→21:37)
[2017-01-13] MEDS: HEPARIN SOD (PORCINE) 5,000 UNIT/ML 1 ML SYRINGE SUBCUT SCH ×2 (14:11→21:38)
[2017-01-13] MEDS ORDERED: MORPHINE SULFATE 10 MG/ML INJ IV ONE (14:45)
[2017-01-13] MEDS ORDERED: CETIRIZINE 10 MG TABLET NG ONE (15:00)
[2017-01-13 16:01] LABS: ARTERIAL BLOOD BASE EXCESS -10.1 mmol/L; ARTERIAL BLOOD O2 SATURATION 97.6 % (94-98)
[2017-01-13 16:46] LABS: ALCOHOL 87 mg/dL (NONE DETECTED); ANION GAP 12 (5-19); BLOOD UREA NITROGEN 12 mg/dL (7-20); CARBON DIOXIDE 14 mmol/L (22-30); CHLORIDE 113 mmol/L (98-107); CREATININE RESULT 1.06 mg/dL (0.52-1.25); GLUCOSE 133 mg/dL (75-110); POTASSIUM 3.8 mmol/L (3.6-5.0)
[2017-01-13] MEDS: DIPHENHYDRAMINE HCL 50 MG/ML VIAL IV SCH ×2 (16:56→21:37)
[2017-01-13] MEDS ORDERED: NORMAL SALINE 1000 ML 1,000 ML IV ONE (17:00)
[2017-01-13] MEDS: NORMAL SALINE 1000 ML 1,000 ML with THIAMINE HCL 100 MG, MVI, ADULT NO.1 WITH VIT K 10 ... IV SCH ×4 (17:01)
[2017-01-13 17:04] LABS: CREATINE KINASE 53313 U/L (55-170)
[2017-01-13 17:06] LABS: CALCIUM 6.7 mg/dL (8.4-10.2)
--- NOTE | 2017-01-13 17:47 | PDOC CONSULTATION ---
History of Present Illness Admission Date/PCP: 01/13/17 00:59 History of Present Illness: 31-year-old male long history of chronic alcohol abuse as well as chronic tobacco abuse who was found obtunded apparent with ant bites over his skin was subsequently brought to the emergency room intubated to protect his airway as he was unresponsive to any intervention he is currently intubated sedated in the ICU. A sedated ccording to nursing staff he has remained. He was found obtunded for a unknown period of time Past Medical History GI Medical History: Reports: Gastroesophageal Reflux Disease Psychiatric Medical History: Reports: Alcohol Dependency, Tobacco Dependency Past Surgical History Past Surgical History: Reports: None Social History Lives with: Family Smoking Status: Current Every Day Smoker Frequency of Alcohol Use: Heavy Drugs: None - No information available this point in time. - Advance Directive Resuscitation Status: Full Code Family History Family History: Reviewed & Not Pertinent Parental Family History Reviewed: No Children Family History Reviewed: No Sibling(s) Family History Reviewed.: No Medication/Allergy Home Medications: Unobtainable [Unobtainable] 01/12/17 Allergies/Adverse Reactions: No Known Allergies Allergy (Unverified 01/12/17 21:14) Review of Systems ROS unobtainable: Due to endotracheal tube, Due to mental status Physical Exam Vital Signs: Temp Pulse Resp BP Pulse Ox 100.6 F H 110 H 30 H 134/96 H 94 01/13/17 16:00 01/13/17 16:00 01/13/17 16:20 01/13/17 16:14 01/13/17 16:20 Intake & Output 01/12/17 01/13/17 01/14/17 06:59 06:59 06:59 Intake Total 3768 Output Total 1555 585 Balance 2213 -585 Weight 68.6 kg General appearance: PRESENT: no acute distress Head exam: PRESENT: atraumatic Respiratory exam: PRESENT: other - intubated Cardiovascular exam: PRESENT: tachycardia Pulses: PRESENT: normal radial pulses GI/Abdominal exam: PRESENT: soft Musculoskeletal exam: PRESENT: other - Right shoulder: Notable swelling from the shoulder down to the level of the biceps. Compartment soft and compressible no sign of compartment syndrome. No crepitus with gentle range of motion. There is a large clear fluid-filled blister. With gentle range of motion I was unable to elicit response from patient secondary to sedation. Limited examination secondary to sedation. Skin exam: PRESENT: erythema, rash Results Laboratory Results: 01/13/17 04:25 01/13/17 16:05 01/13/17 01/13/17 01/13/17 01:13 02:23 04:25 WBC 19.8 H RBC 5.44 Hgb 16.2 Hct 48.5 MCV 89 MCH 29.7 MCHC 33.3 RDW 13.5 Plt Count 227 Seg Neutrophils % 87.9 H Lymphocytes % 6.0 L Monocytes % 6.0 Eosinophils % 0.0 Basophils % 0.1 Absolute Neutrophils 17.4 H Absolute Lymphocytes 1.2 Absolute Monocytes 1.2 Absolute Eosinophils 0.0 Absolute Basophils 0.0 Carbonic Acid HCO3/H2CO3 Ratio ABG pH ABG pCO2 ABG pO2 ABG HCO3 ABG O2 Saturation ABG Base Excess VBG pH VBG pCO2 VBG HCO3 VBG Base Excess FiO2 Sodium Potassium Chloride Carbon Dioxide Anion Gap BUN Creatinine Est GFR ( Amer) Est GFR (Non-Af Amer) Glucose Lactic Acid Cancelled 3.8 H Calcium Albumin 01/13/17 01/13/17 01/13/17 04:25 04:25 04:25 WBC RBC Hgb Hct MCV MCH MCHC RDW Plt Count Seg Neutrophils % Lymphocytes % Monocytes % Eosinophils % Basophils % Absolute Neutrophils Absolute Lymphocytes Absolute Monocytes Absolute Eosinophils Absolute Basophils Carbonic Acid HCO3/H2CO3 Ratio ABG pH ABG pCO2 ABG pO2 ABG HCO3 ABG O2 Saturation ABG Base Excess VBG pH 7.24 L VBG pCO2 39.0 VBG HCO3 16.2 L VBG Base Excess -10.6 FiO2 Sodium 140.0 Potassium 4.0 Chloride 113 H Carbon Dioxide 13 L Anion Gap 14 BUN 7 Creatinine 1.21 Est GFR ( Amer) > 60 Est GFR (Non-Af Amer) > 60 Glucose 146 H Lactic Acid Calcium 6.5 L* Albumin 2.6 L 01/13/17 01/13/17 01/13/17 06:00 08:33 12:35 WBC RBC Hgb Hct MCV MCH MCHC RDW Plt Count Seg Neutrophils % Lymphocytes % Monocytes % Eosinophils % Basophils % Absolute Neutrophils Absolute Lymphocytes Absolute Monocytes Absolute Eosinophils Absolute Basophils Carbonic Acid 0.95 L HCO3/H2CO3 Ratio 14:1 ABG pH 7.26 L ABG pCO2 31.5 L ABG pO2 86.0 ABG HCO3 13.9 L ABG O2 Saturation 95.3 ABG Base Excess -11.7 VBG pH VBG pCO2 VBG HCO3 VBG Base Excess FiO2 35% Sodium 138.9 139.5 Potassium 3.9 3.7 Chloride 114 H 113 H Carbon Dioxide 14 L 13 L Anion Gap 11 14 BUN 8 10 Creatinine 1.13 1.05 Est GFR ( Amer) > 60 > 60 Est GFR (Non-Af Amer) > 60 > 60 Glucose 125 H 126 H Lactic Acid Calcium 6.0 L* 6.5 L* Albumin 01/13/17 01/13/17 15:50 16:05 WBC RBC Hgb Hct MCV MCH MCHC RDW Plt Count Seg Neutrophils % Lymphocytes % Monocytes % Eosinophils % Basophils % Absolute Neutrophils Absolute Lymphocytes Absolute Monocytes Absolute Eosinophils Absolute Basophils Carbonic Acid 0.92 L HCO3/H2CO3 Ratio 15:1 ABG pH 7.30 L ABG pCO2 30.4 L ABG pO2 110.0 H ABG HCO3 14.7 L ABG O2 Saturation 97.6 ABG Base Excess -10.1 VBG pH VBG pCO2 VBG HCO3 VBG Base Excess FiO2 35% Sodium 139.0 Potassium 3.8 Chloride 113 H Carbon Dioxide 14 L Anion Gap 12 BUN 12 Creatinine 1.06 Est GFR ( Amer) > 60 Est GFR (Non-Af Amer) > 60 Glucose 133 H Lactic Acid Calcium 6.7 L* Albumin 01/13/17 01/13/17 01/13/17 04:25 08:33 12:35 Creatine Kinase 96495 H 03500 H 02836 H 01/13/17 16:05 Creatine Kinase 38424 H Impressions: Cervical Spine CT 01/12/17 00:00 IMPRESSION: NO ACUTE OR SIGNIFICANT FINDINGS IN THE CERVICAL SPINE. Head CT 01/12/17 00:00 IMPRESSION: NORMAL BRAIN CT WITHOUT CONTRAST. Chest X-Ray 01/12/17 19:57 IMPRESSION: NO ACUTE RADIOGRAPHIC FINDING IN THE CHEST. SUPPORT DEVICE(S) IN EXPECTED LOCATIONS. Shoulder X-Ray 01/13/17 00:00 IMPRESSION: Mild anterior subluxation pattern of the right glenohumeral joint on limited views ; this appearance is likely positional/ projectional and it is not seen on chest radiographs from 01/12/2017. Status: Image reviewed by me - I have reviewed patient's radiographs of the right shoulder subluxation malalignment is likely positional in nature as opposed to definitive dislocation. There is notable soft tissue swelling and questionable cortical irregularity along the humeral neck. Assessment & Plan - Diagnosis (1) Rhabdomyolysis Qualifiers: Rhabdomyolysis type: non-traumatic Qualified Code(s): M62.82 - Rhabdomyolysis Is this a current diagnosis for this admission?: YesPlan: Currently patient has notable swelling of the right upper extremity positional in nature. Is a limited examination given patient's sedation on x-rays there is cortical irregularity along the humeral neck which may indicate fracture thus I will obtain repeat radiographs today including a axillary lateral to evaluate for subluxation or dislocation. Lastly he has had notable swelling but compartments are soft and compressible no sign of compartment syndrome but given the longevity that the patient was attended missed compartment syndrome remains within the differential diagnosis.
[2017-01-13] MEDS ORDERED: DEXTROSE 5%-WATER 1000 ML 1,000 ML with SODIUM BICARBONATE 100 MEQ IV PRN ×2 (18:00)
[2017-01-13] MEDS: PROPOFOL 100 ML IV PRN (19:25)
--- NOTE | 2017-01-13 19:30 | RADIOLOGY REPORT (SQ) ---
EXAM DESCRIPTION: SHOULDER RIGHT 1 VIEW COMPLETED DATE/TIME: 01/13/2017 6:45 pm REASON FOR STUDY: Evaluate glenohumeral joint. Obtain Axillary view. COMPARISON: None. NUMBER OF VIEWS: One view TECHNIQUE: Axillary view images acquired of the right shoulder. LIMITATIONS: None. FINDINGS: MINERALIZATION: Normal. BONES: No acute fracture or dislocation. No worrisome bone lesions. JOINTS: No dislocation. VISUALIZED LUNGS AND RIBS: No pneumothorax. No rib fracture. SOFT TISSUES: No radiopaque foreign body. OTHER: No other significant finding. IMPRESSION: No significant findings. TECHNICAL DOCUMENTATION: JOB ID: [id number] [employer]- All Rights Reserved
[2017-01-13] MEDS ORDERED: NORMAL SALINE 1000 ML 2,000 ML IV ONE (20:30)
[2017-01-13] MEDS ORDERED: IMIPENEM/CILASTATIN SODIUM INJ 500 MG VIAL IV SCH (20:30)
[2017-01-13 21:18] LABS: ARTERIAL BLOOD BASE EXCESS -6.4 mmol/L; ARTERIAL BLOOD O2 SATURATION 91.6 % (94-98)
[2017-01-13 21:28] LABS: APPEARANCE,URINE SLIGHTLY-CLOUDY; BILIRUBIN,URINE NEGATIVE (NEGATIVE); GLUCOSE, URINE NEGATIVE (NEGATIVE); KETONES,URINE NEGATIVE (NEGATIVE); LEUKOCYTE ESTERASE,URINE NEGATIVE (NEGATIVE); NITRITE,URINE NEGATIVE (NEGATIVE); PROTEIN,URINE 100 mg/dL (NEGATIVE); URINE SPECIFIC GRAVITY 1.028; UROBILINOGEN,URINE NEGATIVE mg/dL (<2.0)
[2017-01-13] MEDS: FUROSEMIDE INJ/PF 20 MG/2 ML SDV IV SCH (21:37)
[2017-01-13 21:39] LABS: ANION GAP 8 (5-19); BLOOD UREA NITROGEN 14 mg/dL (7-20); CARBON DIOXIDE 15 mmol/L (22-30); CHLORIDE 114 mmol/L (98-107); CREATININE RESULT 1.01 mg/dL (0.52-1.25); GLUCOSE 156 mg/dL (75-110); POTASSIUM 3.6 mmol/L (3.6-5.0)
--- NOTE | 2017-01-13 21:47 | PDOC CONSULTATION ---
Consultation Consult Date: 01/13/17 Consult reason:: Metabolic acidosis in the face of acute ethanol toxicity, acute rhabdomyolysis History of Present Illness Admission Date/PCP: 01/13/17 00:59 History of Present Illness: 31-year-old male long history of chronic alcohol abuse as well as chronic tobacco abuse who was found obtunded and unresponsive . As per notes reviewed he was apparently covered with inflammed ant bites over his skin was subsequently brought to the emergency room and intubated to protect his airway as he was unresponsive. Currently intubated sedated in the ICU. The history was discussed with Dr. Lopez and treating nurse Barbara Rendon. 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 Further evaluations in the ER also revealed that he has a swollen and red indurated area over the right shoulder with a blister over it. He has been seen by Dr. Lou/orthopedic surgeon who was diagnosed possible missed compartment syndrome/crush injury because the patient is laying on his right side/arm, with no acute signs of any complication from it at the moment. He has been fluid resuscitated.He received about 10 L so far and has made about 3 L of urine. Reviewed his labs. His renal function numbers are stable.PCO2 is around 15. His anion gap was only 13 currently even though it peaked at 19 earlier today. His levels of methanol and ethylene glycol are negative . His renal numbers are normal.He has received so far approximately 10 L and he has made about 3 L of urine.He has been put on dexamethasone at a high dose. This was done by Dr. Rivera. Apparently as per discussions with Barbara the treating nurse. The patient was covered with antibiotics with marked inflammation and swelling and that was the reason for the introduction of this dexamethasone. They are markedly improved at the moment. As per review of notes it is quite likely that he has aspirated Past Medical History GI Medical History: Reports: Gastroesophageal Reflux Disease Psychiatric Medical History: Reports: Alcohol Dependency, Tobacco Dependency Past Surgical History Past Surgical History: Reports: None Social History Lives with: Family Smoking Status: Current Every Day Smoker Frequency of Alcohol Use: Heavy Drugs: None - No information available this point in time. - Advance Directive Resuscitation Status: Full Code Family History Parental Family History Reviewed: No - Intubated and sedated. Children Family History Reviewed: No Sibling(s) Family History Reviewed.: No Medication/Allergy Home Medications: Unobtainable [Unobtainable] 01/12/17 Allergies/Adverse Reactions: No Known Allergies Allergy (Unverified 01/12/17 21:14) Review of Systems Review of Systems: Unable to be obtained as he is sedated and intubated. Chart review was done and discussions were done with the treating nurses and Dr. Lopez. Physical Exam Vital Signs: Temp Pulse Resp BP Pulse Ox 99.5 F 94 20 150/96 H 96 01/13/17 20:00 01/13/17 20:00 01/13/17 20:00 01/13/17 20:00 01/13/17 20:00 Intake & Output 01/12/17 01/13/17 01/14/17 06:59 06:59 06:59 Intake Total 3768 7761 Output Total 1555 810 Balance 2213 6951 Weight 68.6 kg Exam: Intubated and sedated Eye exam: PRESENT: EOMI, PERRLA Ear exam: PRESENT: normal external ear exam Neck exam: ABSENT: lymphadenopathy, meningismus, tenderness, thyromegaly, tracheal deviation Respiratory exam: PRESENT: clear to auscultation jesus. ABSENT: crackles, rhonchi Cardiovascular exam: PRESENT: +S1, +S2 GI/Abdominal exam: PRESENT: normal bowel sounds, soft. ABSENT: organomegaly, tenderness Extremities exam: ABSENT: pedal edema Additional comments: Right shoulder was examined. It is a bit more form of compared to the opposite side. There is some induration but it is not tense. There is a clear large blister over left overlooking the the deltoid.There is no signs of cyanosis. His radial pulse is present though feeble. Results Laboratory Results: 01/13/17 04:25 01/13/17 01/13/17 01/13/17 01:13 02:23 04:25 WBC 19.8 H RBC 5.44 Hgb 16.2 Hct 48.5 MCV 89 MCH 29.7 MCHC 33.3 RDW 13.5 Plt Count 227 Seg Neutrophils % 87.9 H Lymphocytes % 6.0 L Monocytes % 6.0 Eosinophils % 0.0 Basophils % 0.1 Absolute Neutrophils 17.4 H Absolute Lymphocytes 1.2 Absolute Monocytes 1.2 Absolute Eosinophils 0.0 Absolute Basophils 0.0 Carbonic Acid HCO3/H2CO3 Ratio ABG pH ABG pCO2 ABG pO2 ABG HCO3 ABG O2 Saturation ABG Base Excess VBG pH VBG pCO2 VBG HCO3 VBG Base Excess FiO2 Sodium Potassium Chloride Carbon Dioxide Anion Gap BUN Creatinine Est GFR ( Amer) Est GFR (Non-Af Amer) Glucose Lactic Acid Cancelled 3.8 H Calcium Albumin 01/13/17 01/13/17 01/13/17 04:25 04:25 04:25 WBC RBC Hgb Hct MCV MCH MCHC RDW Plt Count Seg Neutrophils % Lymphocytes % Monocytes % Eosinophils % Basophils % Absolute Neutrophils Absolute Lymphocytes Absolute Monocytes Absolute Eosinophils Absolute Basophils Carbonic Acid HCO3/H2CO3 Ratio ABG pH ABG pCO2 ABG pO2 ABG HCO3 ABG O2 Saturation ABG Base Excess VBG pH 7.24 L VBG pCO2 39.0 VBG HCO3 16.2 L VBG Base Excess -10.6 FiO2 Sodium 140.0 Potassium 4.0 Chloride 113 H Carbon Dioxide 13 L Anion Gap 14 BUN 7 Creatinine 1.21 Est GFR ( Amer) > 60 Est GFR (Non-Af Amer) > 60 Glucose 146 H Lactic Acid Calcium 6.5 L* Albumin 2.6 L 01/13/17 01/13/17 01/13/17 06:00 08:33 12:35 WBC RBC Hgb Hct MCV MCH MCHC RDW Plt Count Seg Neutrophils % Lymphocytes % Monocytes % Eosinophils % Basophils % Absolute Neutrophils Absolute Lymphocytes Absolute Monocytes Absolute Eosinophils Absolute Basophils Carbonic Acid 0.95 L HCO3/H2CO3 Ratio 14:1 ABG pH 7.26 L ABG pCO2 31.5 L ABG pO2 86.0 ABG HCO3 13.9 L ABG O2 Saturation 95.3 ABG Base Excess -11.7 VBG pH VBG pCO2 VBG HCO3 VBG Base Excess FiO2 35% Sodium 138.9 139.5 Potassium 3.9 3.7 Chloride 114 H 113 H Carbon Dioxide 14 L 13 L Anion Gap 11 14 BUN 8 10 Creatinine 1.13 1.05 Est GFR ( Amer) > 60 > 60 Est GFR (Non-Af Amer) > 60 > 60 Glucose 125 H 126 H Lactic Acid Calcium 6.0 L* 6.5 L* Albumin 01/13/17 01/13/17 01/13/17 15:50 16:05 21:00 WBC RBC Hgb Hct MCV MCH MCHC RDW Plt Count Seg Neutrophils % Lymphocytes % Monocytes % Eosinophils % Basophils % Absolute Neutrophils Absolute Lymphocytes Absolute Monocytes Absolute Eosinophils Absolute Basophils Carbonic Acid 0.92 L 0.96 L HCO3/H2CO3 Ratio 15:1 18:1 ABG pH 7.30 L 7.37 ABG pCO2 30.4 L 31.8 L ABG pO2 110.0 H 62.7 L ABG HCO3 14.7 L 17.8 L ABG O2 Saturation 97.6 91.6 L ABG Base Excess -10.1 -6.4 VBG pH VBG pCO2 VBG HCO3 VBG Base Excess FiO2 35% 21% Sodium 139.0 Potassium 3.8 Chloride 113 H Carbon Dioxide 14 L Anion Gap 12 BUN 12 Creatinine 1.06 Est GFR ( Amer) > 60 Est GFR (Non-Af Amer) > 60 Glucose 133 H Lactic Acid Calcium 6.7 L* Albumin 01/13/17 01/13/17 01/13/17 04:25 08:33 12:35 Creatine Kinase 60340 H 27717 H 83891 H 01/13/17 16:05 Creatine Kinase 40577 H Impressions: Cervical Spine CT 01/12/17 00:00 IMPRESSION: NO ACUTE OR SIGNIFICANT FINDINGS IN THE CERVICAL SPINE. Head CT 01/12/17 00:00 IMPRESSION: NORMAL BRAIN CT WITHOUT CONTRAST. Chest X-Ray 01/12/17 19:57 IMPRESSION: NO ACUTE RADIOGRAPHIC FINDING IN THE CHEST. SUPPORT DEVICE(S) IN EXPECTED LOCATIONS. Shoulder X-Ray 01/13/17 00:00 IMPRESSION: No significant findings. Assessment & Plan - Diagnosis (1) Acute respiratory failure Qualifiers: Respiratory failure complication: unspecified whether with hypoxia or hypercapnia Qualified Code(s): J96.00 - Acute respiratory failure, unspecified whether with hypoxia or hypercapnia Is this a current diagnosis for this admission?: YesPlan: Combination of alcohol intoxication/toxicity with possible aspiration. (2) Alcohol intoxication Qualifiers: Complication of substance-induced condition: with unspecified complication Qualified Code(s): F10.929 - Alcohol use, unspecified with intoxication, unspecified Is this a current diagnosis for this admission?: YesPlan: Very high levels of ethanol.His levels for atypical alcohols including methanol and ethlene glycol were negative.His renal numbers are normal. His gap is not too white. Is got a high osmolar gap because of his high levels of ethanol. Continue vigorous fluid resuscitation. No indications for renal replacements. (3) Altered mental status Qualifiers: Altered mental status type: coma Coma depth: Malia coma 3-8 Coma timing: in the field (EMT or ambulance) Qualified Code(s): R40.2431 - Malia coma scale score 3-8, in the field [EMT or ambulance] Is this a current diagnosis for this admission?: Yes (4) Metabolic acidosis Is this a current diagnosis for this admission?: YesPlan: He had a higher and iron gap earlier this morning at around 16 which peaked at 19 and currently is down to 13 .Has had decent urine output.Causes acute ethanol toxicity. No evidences to indicate atypical alcohol toxicity. Continue vigorous fluid resuscitation. Orders were discussed with Dr. Lopez. (5) Rhabdomyolysis Qualifiers: Rhabdomyolysis type: non-traumatic Qualified Code(s): M62.82 - Rhabdomyolysis Is this a current diagnosis for this admission?: YesPlan: Positives include obtundation and unresponsiveness. Other contributing factors also include a possible mild compartment syndrome which was missed affecting his right upper arm.Is being evaluated and managed by orthopedic surgery (6) Aspiration into airway Qualifiers: Encounter type: initial encounter Qualified Code(s): T17.908A - Unspecified foreign body in respiratory tract, part unspecified causing other injury, initial encounter Is this a current diagnosis for this admission?: Yes (7) Insect bites and stings Plan: I would change the dexamethasone 10 mg every 6 hours to Solu-Medrol 30 every 12 along with other antihistamines which are ineffective.
[2017-01-13] MEDS ORDERED: DEXTROSE 5% IV SCH ×4 (22:00)
[2017-01-13] MEDS ORDERED: METHYLPREDNISOLONE SOD SUCC IV SCH ×4 (22:00)
[2017-01-13] MEDS ORDERED: WATER IV SCH ×4 (22:00)
[2017-01-13 22:02] LABS: CREATINE KINASE 42268 U/L (55-170)
[2017-01-13] MEDS: METHYLPREDNISOLONE INJ 40 MG/1 ML SDV IV SCH (22:23)
[2017-01-13] MEDS: IMIPENEM/CILASTATIN SODIUM 500 MG in NORMAL SALINE 100 ML IV SCH (22:23)
--- NOTE | 2017-01-13 22:28 | Progress Note ---
Provider Note Provider Note: January 13, 2017: Methanol and ethylene glycol levels were both negative. Outside lab report reviewed. At 7:50 PM, patient was discussed with Dr. Vicente, on-call court of appeals judge at [place] [facility] control. She had reviewed earlier notes concerning the patient. According to Dr. Vicente, Fomepizole will not be needed.
[2017-01-14] MEDS ORDERED: IMIPENEM/CILASTATIN SODIUM 500 MG in NORMAL SALINE 100 ML IV SCH ×2
[2017-01-14] MEDS: NORMAL SALINE 1000 ML 1,000 ML IV PRN ×5 (00:13→17:16)
[2017-01-14 01:20] LABS: ARTERIAL BLOOD BASE EXCESS -6.5 mmol/L; ARTERIAL BLOOD O2 SATURATION 96.5 % (94-98)
[2017-01-14 01:31] LABS: APPEARANCE,URINE SLIGHTLY-CLOUDY; BILIRUBIN,URINE NEGATIVE (NEGATIVE); GLUCOSE, URINE 50 mg/dL (NEGATIVE); KETONES,URINE NEGATIVE (NEGATIVE); LEUKOCYTE ESTERASE,URINE NEGATIVE (NEGATIVE); NITRITE,URINE NEGATIVE (NEGATIVE); PROTEIN,URINE NEGATIVE (NEGATIVE); URINE SPECIFIC GRAVITY 1.008; UROBILINOGEN,URINE NEGATIVE mg/dL (<2.0)
[2017-01-14 01:32] LABS: BLOOD UREA NITROGEN 16 mg/dL (7-20); CARBON DIOXIDE 16 mmol/L (22-30); CHLORIDE 112 mmol/L (98-107); GLUCOSE 268 mg/dL (75-110); SODIUM 136.6 mmol/L (137-145)
[2017-01-14 01:33] LABS: ANION GAP 9 (5-19)
[2017-01-14 01:51] LABS: CREATINE KINASE 44859 U/L (55-170)
[2017-01-14 01:53] LABS: CALCIUM 5.9 mg/dL (8.4-10.2)
[2017-01-14] MEDS: DIPHENHYDRAMINE HCL 50 MG/ML VIAL IV SCH ×4 (02:33→21:48)
[2017-01-14] MEDS: PROPOFOL 100 ML IV PRN ×3 (02:34→10:22)
[2017-01-14] MEDS: IMIPENEM/CILASTATIN SODIUM 500 MG in NORMAL SALINE 100 ML IV SCH ×3 (06:04→21:48)
[2017-01-14 06:29] LABS: HGB HCT DIFFERENCE 1.7; MEAN CORPUSCULAR HEMOGLOBIN 30.6 pg (27.0-33.4); MEAN CORPUSCULAR HGB CONC 34.7 g/dL (32.0-36.0); MEAN CORPUSCULAR VOLUME 88 fl (80-97); RED BLOOD COUNT 4.54 10^6/uL (4.35-5.55); RED CELL DISTRIBUTION WIDTH 13.8 % (11.5-14.0); WHITE BLOOD COUNT 17.1 10^3/uL (4.0-10.5)
[2017-01-14 06:33] LABS: HEMOGLOBIN 13.9 g/dL (13.5-17.0)
[2017-01-14 06:38] LABS: ANION GAP 10 (5-19); BLOOD UREA NITROGEN 17 mg/dL (7-20); CARBON DIOXIDE 15 mmol/L (22-30); CHLORIDE 112 mmol/L (98-107); CREATININE RESULT 0.94 mg/dL (0.52-1.25); GLUCOSE 171 mg/dL (75-110); MAGNESIUM 1.7 mg/dL (1.6-2.3); PHOSPHORUS 2.5 mg/dL (2.5-4.5); POTASSIUM 4.1 mmol/L (3.6-5.0); SODIUM 137.3 mmol/L (137-145)
[2017-01-14 06:44] LABS: ARTERIAL BLOOD BASE EXCESS -7.4 mmol/L; ARTERIAL BLOOD O2 SATURATION 96.2 % (94-98)
--- NOTE | 2017-01-14 06:57 | RADIOLOGY REPORT (SQ) ---
EXAM DESCRIPTION: SHOULDER RIGHT 1 VIEW COMPLETED DATE/TIME: 01/14/2017 6:32 am REASON FOR STUDY: subluxation COMPARISON: 01/13/2017. NUMBER OF VIEWS: One view. TECHNIQUE: Single view images acquired of the right shoulder. LIMITATIONS: Single-view. FINDINGS: MINERALIZATION: Normal. BONES: No acute fracture or dislocation. No worrisome bone lesions. As correlated with exam from 1 day prior. JOINTS: No dislocation. VISUALIZED LUNGS AND RIBS: No pneumothorax. No rib fracture. SOFT TISSUES: No radiopaque foreign body. OTHER: Adequate appearing endotracheal tube and partially obscured NG tube. IMPRESSION: NO RADIOGRAPHIC EVIDENCE OF ACUTE INJURY. The limitation. TECHNICAL DOCUMENTATION: JOB ID: [id number] [employer]- All Rights Reserved
--- NOTE | 2017-01-14 06:58 | RADIOLOGY REPORT (SQ) ---
EXAM DESCRIPTION: CHEST SINGLE VIEW COMPLETED DATE/TIME: 01/14/2017 6:32 am REASON FOR STUDY: resp failure COMPARISON: 01/12/2017. EXAM PARAMETERS: NUMBER OF VIEWS: One view. TECHNIQUE: Single frontal radiographic view of the chest acquired. RADIATION DOSE: NA LIMITATIONS: None. FINDINGS: LUNGS AND PLEURA: No opacities, masses or pneumothorax. No pleural effusion. MEDIASTINUM AND HILAR STRUCTURES: No masses. Contour normal. HEART AND VASCULAR STRUCTURES: Heart normal in size. Normal vasculature. BONES: No acute findings. HARDWARE: Adequate appearing endotracheal tube and NG tube. OTHER: No other significant finding. IMPRESSION: No acute cardiopulmonary findings. Lines and tubes. TECHNICAL DOCUMENTATION: JOB ID: [id number]
[2017-01-14 07:07] LABS: CREATINE KINASE 48537 U/L (55-170)
[2017-01-14 07:09] LABS: CALCIUM 6.1 mg/dL (8.4-10.2)
[2017-01-14 09:01] LABS: ALCOHOL 470 mg/dL (NONE DETECTED)
[2017-01-14] MEDS: LORAZEPAM 24 MG/ D5W 240 ML IV PRN (10:17)
[2017-01-14] MEDS: HEPARIN SOD (PORCINE) 5,000 UNIT/ML 1 ML SYRINGE SUBCUT SCH ×2 (10:18→21:48)
[2017-01-14] MEDS: CETIRIZINE 10 MG TABLET NG SCH (10:19)
[2017-01-14] MEDS: FUROSEMIDE INJ/PF 20 MG/2 ML SDV IV SCH ×2 (10:20→21:48)
[2017-01-14] MEDS: METHYLPREDNISOLONE INJ 40 MG/1 ML SDV IV SCH ×2 (10:20→21:49)
[2017-01-14] MEDS: FAMOTIDINE INJ/PF 20 MG/2 ML SDV IV SCH ×2 (10:21→21:49)
--- NOTE | 2017-01-14 11:35 | PDOC PROGRESS REPORT ---
Subjective Progress Note for:: 01/14/17 Subjective:: Intubated and sedated Physical Exam Vital Signs: Temp Pulse Resp BP Pulse Ox 98.8 F 79 20 144/92 H 98 01/14/17 08:00 01/14/17 08:00 01/14/17 08:00 01/14/17 08:00 01/14/17 08:00 Intake & Output 01/13/17 01/14/17 01/15/17 06:59 06:59 06:59 Intake Total 3768 56044 Output Total 1555 2165 25 Balance 2213 79319 -25 Weight 68.6 kg General appearance: PRESENT: no acute distress, disheveled, well-developed, well -nourished Head exam: PRESENT: atraumatic, normocephalic Eye exam: PRESENT: conjunctiva pale Mouth exam: PRESENT: dry mucosa, neck supple, tongue midline, other - ET tube in place Neck exam: PRESENT: carotid bruit Respiratory exam: PRESENT: decreased breath sounds, prolonged expiratory phas, rhonchi, symmetrical, unlabored Cardiovascular exam: PRESENT: RRR, +S1, +S2 Pulses: PRESENT: normal radial pulses GI/Abdominal exam: PRESENT: normal bowel sounds, soft. ABSENT: distended, guarding, mass, organolmegaly, rebound, tenderness Rectal exam: PRESENT: deferred Gentrourinary exam: PRESENT: indwelling catheter Extremities exam: PRESENT: other - Skin blistering on the proximal right upper extremity Results Laboratory Results: 01/14/17 06:12 01/14/17 06:12 01/13/17 01/13/17 01/13/17 08:33 12:35 15:50 WBC RBC Hgb Hct MCV MCH MCHC RDW Plt Count Carbonic Acid 0.92 L HCO3/H2CO3 Ratio 15:1 ABG pH 7.30 L ABG pCO2 30.4 L ABG pO2 110.0 H ABG HCO3 14.7 L ABG O2 Saturation 97.6 ABG Base Excess -10.1 FiO2 35% Sodium 138.9 139.5 Potassium 3.9 3.7 Chloride 114 H 113 H Carbon Dioxide 14 L 13 L Anion Gap 11 14 BUN 8 10 Creatinine 1.13 1.05 Est GFR ( Amer) > 60 > 60 Est GFR (Non-Af Amer) > 60 > 60 Glucose 125 H 126 H Lactic Acid Calcium 6.0 L* 6.5 L* Phosphorus Magnesium Albumin Urine Color Urine Appearance Urine pH Ur Specific [place] Urine Protein Urine Glucose (UA) Urine Ketones Urine Blood Urine Nitrite Ur Leukocyte Esterase Urine WBC (Auto) Urine RBC (Auto) 01/13/17 01/13/17 01/13/17 16:05 20:15 20:15 WBC RBC Hgb Hct MCV MCH MCHC RDW Plt Count Carbonic Acid HCO3/H2CO3 Ratio ABG pH ABG pCO2 ABG pO2 ABG HCO3 ABG O2 Saturation ABG Base Excess FiO2 Sodium 139.0 137.0 Potassium 3.8 3.6 Chloride 113 H 114 H Carbon Dioxide 14 L 15 L Anion Gap 12 8 BUN 12 14 Creatinine 1.06 1.01 Est GFR ( Amer) > 60 > 60 Est GFR (Non-Af Amer) > 60 > 60 Glucose 133 H 156 H Lactic Acid Calcium 6.7 L* 6.0 L* Phosphorus Magnesium Albumin 1.9 L Urine Color Urine Appearance Urine pH Ur Specific [place] Urine Protein Urine Glucose (UA) Urine Ketones Urine Blood Urine Nitrite Ur Leukocyte Esterase Urine WBC (Auto) Urine RBC (Auto) 01/13/17 01/13/17 01/14/17 21:00 21:00 01:05 WBC RBC Hgb Hct MCV MCH MCHC RDW Plt Count Carbonic Acid 0.96 L 0.89 L HCO3/H2CO3 Ratio 18:1 19:1 ABG pH 7.37 7.38 ABG pCO2 31.8 L 29.7 L ABG pO2 62.7 L 85.9 ABG HCO3 17.8 L 17.1 L ABG O2 Saturation 91.6 L 96.5 ABG Base Excess -6.4 -6.5 FiO2 21% 25% Sodium Potassium Chloride Carbon Dioxide Anion Gap BUN Creatinine Est GFR ( Amer) Est GFR (Non-Af Amer) Glucose Lactic Acid Calcium Phosphorus Magnesium Albumin Urine Color YELLOW Urine Appearance SLIGHTLY-CLOUDY Urine pH 6.0 Ur Specific [place] 1.028 Urine Protein 100 H Urine Glucose (UA) NEGATIVE Urine Ketones NEGATIVE Urine Blood LARGE H Urine Nitrite NEGATIVE Ur Leukocyte Esterase NEGATIVE Urine WBC (Auto) 3 Urine RBC (Auto) 2 01/14/17 01/14/17 01/14/17 01:05 01:10 06:12 WBC 17.1 H RBC 4.54 Hgb 13.9 D Hct 40.0 MCV 88 MCH 30.6 MCHC 34.7 RDW 13.8 Plt Count 163 Carbonic Acid HCO3/H2CO3 Ratio ABG pH ABG pCO2 ABG pO2 ABG HCO3 ABG O2 Saturation ABG Base Excess FiO2 Sodium 136.6 L Potassium 4.0 Chloride 112 H Carbon Dioxide 16 L Anion Gap 9 BUN 16 Creatinine 1.00 Est GFR ( Amer) > 60 Est GFR (Non-Af Amer) > 60 Glucose 268 H Lactic Acid Calcium 5.9 L* Phosphorus Magnesium Albumin 2.0 L Urine Color YELLOW Urine Appearance SLIGHTLY-CLOUDY Urine pH 5.0 Ur Specific [place] 1.008 Urine Protein NEGATIVE Urine Glucose (UA) 50 H Urine Ketones NEGATIVE Urine Blood LARGE H Urine Nitrite NEGATIVE Ur Leukocyte Esterase NEGATIVE Urine WBC (Auto) 0 Urine RBC (Auto) 0 01/14/17 01/14/17 01/14/17 06:12 06:12 06:12 WBC RBC Hgb Hct MCV MCH MCHC RDW Plt Count Carbonic Acid 0.87 L HCO3/H2CO3 Ratio 18:1 ABG pH 7.37 ABG pCO2 28.9 L ABG pO2 83.9 ABG HCO3 16.3 L ABG O2 Saturation 96.2 ABG Base Excess -7.4 FiO2 25% Sodium 137.3 Potassium 4.1 Chloride 112 H Carbon Dioxide 15 L Anion Gap 10 BUN 17 Creatinine 0.94 Est GFR ( Amer) > 60 Est GFR (Non-Af Amer) > 60 Glucose 171 H Lactic Acid 5.6 H Calcium 6.1 L* Phosphorus 2.5 Magnesium 1.7 Albumin Urine Color Urine Appearance Urine pH Ur Specific [place] Urine Protein Urine Glucose (UA) Urine Ketones Urine Blood Urine Nitrite Ur Leukocyte Esterase Urine WBC (Auto) Urine RBC (Auto) 01/13/17 01/13/17 01/13/17 04:25 08:33 12:35 Creatine Kinase 42590 H 41928 H 19852 H 01/13/17 01/13/17 01/14/17 16:05 20:15 01:10 Creatine Kinase 52749 H 16954 H 43149 H 01/14/17 06:12 Creatine Kinase 64166 H Impressions: Cervical Spine CT 01/12/17 00:00 IMPRESSION: NO ACUTE OR SIGNIFICANT FINDINGS IN THE CERVICAL SPINE. Head CT 01/12/17 00:00 IMPRESSION: NORMAL BRAIN CT WITHOUT CONTRAST. Chest X-Ray 01/14/17 06:00 IMPRESSION: No acute cardiopulmonary findings. Lines and tubes. Shoulder X-Ray 01/14/17 06:00 IMPRESSION: NO RADIOGRAPHIC EVIDENCE OF ACUTE INJURY. The limitation. Assessment & Plan - Diagnosis (1) Alcohol dependence Qualifiers: Substance use status: with intoxication Complication of substance- induced condition: with unspecified complication Qualified Code(s): F10.229 - Alcohol dependence with intoxication, unspecified Is this a current diagnosis for this admission?: Yes (2) Alcohol intoxication Qualifiers: Complication of substance-induced condition: with unspecified complication Qualified Code(s): F10.929 - Alcohol use, unspecified with intoxication, unspecified Is this a current diagnosis for this admission?: Yes (3) Altered mental status Qualifiers: Altered mental status type: coma Coma depth: [place] coma 3-8 Coma timing: in the field (EMT or ambulance) Qualified Code(s): R40.2431 - [place] coma scale score 3-8, in the field [EMT or ambulance] Is this a current diagnosis for this admission?: Yes (4) Dehydration Is this a current diagnosis for this admission?: Yes (5) Metabolic acidosis Is this a current diagnosis for this admission?: YesPlan: Profound and persistent fistula respiratory compensation has been adequate, Persistent lactic acidosis (6) Rhabdomyolysis Qualifiers: Rhabdomyolysis type: non-traumatic Qualified Code(s): M62.82 - Rhabdomyolysis Is this a current diagnosis for this admission?: YesPlan: Minimal improvement - Time Critical Time spent with patient: 35 or more minutes - Discussed with nurse and family
--- NOTE | 2017-01-14 12:03 | PDOC PROGRESS REPORT ---
Subjective Progress Note for:: 01/14/17 Subjective:: Patient is intubated and sedated. Physical Exam Vital Signs: Temp Pulse Resp BP Pulse Ox 100.0 F 87 20 152/96 H 97 01/14/17 10:00 01/14/17 10:00 01/14/17 10:55 01/14/17 10:45 01/14/17 10:55 Intake & Output 01/13/17 01/14/17 01/15/17 06:59 06:59 06:59 Intake Total 3768 08397 Output Total 1555 2165 75 Balance 2213 86055 -75 Weight 68.6 kg General appearance: PRESENT: no acute distress Eye exam: PRESENT: conjunctiva pink. ABSENT: scleral icterus Mouth exam: PRESENT: moist, tongue midline Neck exam: ABSENT: carotid bruit, JVD, lymphadenopathy, thyromegaly Respiratory exam: PRESENT: clear to auscultation jesus. ABSENT: rales, rhonchi, wheezes Cardiovascular exam: PRESENT: RRR. ABSENT: diastolic murmur, rubs, systolic murmur GI/Abdominal exam: PRESENT: normal bowel sounds, soft. ABSENT: distended, guarding, mass, organolmegaly, rebound, tenderness Extremities exam: PRESENT: other - Patient has some edema of the right arm.. ABSENT: calf tenderness, clubbing, pedal edema Neurological exam: PRESENT: other - Patient is intubated and sedated. Psychiatric exam: PRESENT: other - Unable to assess Skin exam: PRESENT: vesicles - On the right arm and areas of the back consistent with the stated history of ant bite Results Laboratory Results: 01/14/17 06:12 01/14/17 06:12 01/13/17 01/13/17 01/13/17 12:35 15:50 16:05 WBC RBC Hgb Hct MCV MCH MCHC RDW Plt Count Carbonic Acid 0.92 L HCO3/H2CO3 Ratio 15:1 ABG pH 7.30 L ABG pCO2 30.4 L ABG pO2 110.0 H ABG HCO3 14.7 L ABG O2 Saturation 97.6 ABG Base Excess -10.1 FiO2 35% Sodium 139.5 139.0 Potassium 3.7 3.8 Chloride 113 H 113 H Carbon Dioxide 13 L 14 L Anion Gap 14 12 BUN 10 12 Creatinine 1.05 1.06 Est GFR ( Amer) > 60 > 60 Est GFR (Non-Af Amer) > 60 > 60 Glucose 126 H 133 H Lactic Acid Calcium 6.5 L* 6.7 L* Phosphorus Magnesium Albumin Urine Color Urine Appearance Urine pH Ur Specific [place] Urine Protein Urine Glucose (UA) Urine Ketones Urine Blood Urine Nitrite Ur Leukocyte Esterase Urine WBC (Auto) Urine RBC (Auto) 01/13/17 01/13/17 01/13/17 20:15 20:15 21:00 WBC RBC Hgb Hct MCV MCH MCHC RDW Plt Count Carbonic Acid 0.96 L HCO3/H2CO3 Ratio 18:1 ABG pH 7.37 ABG pCO2 31.8 L ABG pO2 62.7 L ABG HCO3 17.8 L ABG O2 Saturation 91.6 L ABG Base Excess -6.4 FiO2 21% Sodium 137.0 Potassium 3.6 Chloride 114 H Carbon Dioxide 15 L Anion Gap 8 BUN 14 Creatinine 1.01 Est GFR ( Amer) > 60 Est GFR (Non-Af Amer) > 60 Glucose 156 H Lactic Acid Calcium 6.0 L* Phosphorus Magnesium Albumin 1.9 L Urine Color Urine Appearance Urine pH Ur Specific [place] Urine Protein Urine Glucose (UA) Urine Ketones Urine Blood Urine Nitrite Ur Leukocyte Esterase Urine WBC (Auto) Urine RBC (Auto) 01/13/17 01/14/17 01/14/17 21:00 01:05 01:05 WBC RBC Hgb Hct MCV MCH MCHC RDW Plt Count Carbonic Acid 0.89 L HCO3/H2CO3 Ratio 19:1 ABG pH 7.38 ABG pCO2 29.7 L ABG pO2 85.9 ABG HCO3 17.1 L ABG O2 Saturation 96.5 ABG Base Excess -6.5 FiO2 25% Sodium Potassium Chloride Carbon Dioxide Anion Gap BUN Creatinine Est GFR ( Amer) Est GFR (Non-Af Amer) Glucose Lactic Acid Calcium Phosphorus Magnesium Albumin Urine Color YELLOW YELLOW Urine Appearance SLIGHTLY-CLOUDY SLIGHTLY-CLOUDY Urine pH 6.0 5.0 Ur Specific [place] 1.028 1.008 Urine Protein 100 H NEGATIVE Urine Glucose (UA) NEGATIVE 50 H Urine Ketones NEGATIVE NEGATIVE Urine Blood LARGE H LARGE H Urine Nitrite NEGATIVE NEGATIVE Ur Leukocyte Esterase NEGATIVE NEGATIVE Urine WBC (Auto) 3 0 Urine RBC (Auto) 2 0 01/14/17 01/14/17 01/14/17 01:10 06:12 06:12 WBC 17.1 H RBC 4.54 Hgb 13.9 D Hct 40.0 MCV 88 MCH 30.6 MCHC 34.7 RDW 13.8 Plt Count 163 Carbonic Acid HCO3/H2CO3 Ratio ABG pH ABG pCO2 ABG pO2 ABG HCO3 ABG O2 Saturation ABG Base Excess FiO2 Sodium 136.6 L 137.3 Potassium 4.0 4.1 Chloride 112 H 112 H Carbon Dioxide 16 L 15 L Anion Gap 9 10 BUN 16 17 Creatinine 1.00 0.94 Est GFR ( Amer) > 60 > 60 Est GFR (Non-Af Amer) > 60 > 60 Glucose 268 H 171 H Lactic Acid Calcium 5.9 L* 6.1 L* Phosphorus 2.5 Magnesium 1.7 Albumin 2.0 L Urine Color Urine Appearance Urine pH Ur Specific [place] Urine Protein Urine Glucose (UA) Urine Ketones Urine Blood Urine Nitrite Ur Leukocyte Esterase Urine WBC (Auto) Urine RBC (Auto) 01/14/17 01/14/17 06:12 06:12 WBC RBC Hgb Hct MCV MCH MCHC RDW Plt Count Carbonic Acid 0.87 L HCO3/H2CO3 Ratio 18:1 ABG pH 7.37 ABG pCO2 28.9 L ABG pO2 83.9 ABG HCO3 16.3 L ABG O2 Saturation 96.2 ABG Base Excess -7.4 FiO2 25% Sodium Potassium Chloride Carbon Dioxide Anion Gap BUN Creatinine Est GFR ( Amer) Est GFR (Non-Af Amer) Glucose Lactic Acid 5.6 H Calcium Phosphorus Magnesium Albumin Urine Color Urine Appearance Urine pH Ur Specific [place] Urine Protein Urine Glucose (UA) Urine Ketones Urine Blood Urine Nitrite Ur Leukocyte Esterase Urine WBC (Auto) Urine RBC (Auto) 01/13/17 01/13/17 01/13/17 04:25 08:33 12:35 Creatine Kinase 42940 H 89614 H 75463 H 01/13/17 01/13/17 01/14/17 16:05 20:15 01:10 Creatine Kinase 50791 H 46417 H 12179 H 01/14/17 06:12 Creatine Kinase 63632 H Impressions: Cervical Spine CT 01/12/17 00:00 IMPRESSION: NO ACUTE OR SIGNIFICANT FINDINGS IN THE CERVICAL SPINE. Head CT 01/12/17 00:00 IMPRESSION: NORMAL BRAIN CT WITHOUT CONTRAST. Chest X-Ray 01/14/17 06:00 IMPRESSION: No acute cardiopulmonary findings. Lines and tubes. Shoulder X-Ray 01/14/17 06:00 IMPRESSION: NO RADIOGRAPHIC EVIDENCE OF ACUTE INJURY. The limitation. Assessment & Plan - Diagnosis (1) Acute encephalopathy Is this a current diagnosis for this admission?: YesPlan: Likely secondary to alcohol intoxication. Test were negative for methanol or polyethylene glycol ingestion. (2) Acute respiratory failure Qualifiers: Respiratory failure complication: unspecified whether with hypoxia or hypercapnia Qualified Code(s): J96.00 - Acute respiratory failure, unspecified whether with hypoxia or hypercapnia Is this a current diagnosis for this admission?: YesPlan: Currently on the ventilator. Pulmonary medicine is following. (3) Alcohol dependence Qualifiers: Substance use status: with intoxication Complication of substance- induced condition: with unspecified complication Qualified Code(s): F10.229 - Alcohol dependence with intoxication, unspecified Is this a current diagnosis for this admission?: YesPlan: Benzodiazepines for alcohol withdrawal prevention (4) Elevated LFTs Is this a current diagnosis for this admission?: YesPlan: Secondary to alcohol ingestion. (5) Hypernatremia Is this a current diagnosis for this admission?: YesPlan: Resolved (6) Hypovolemic shock Is this a current diagnosis for this admission?: YesPlan: Resolved with IV fluids (7) Insect bites and stings Is this a current diagnosis for this admission?: YesPlan: Patient has several vesicles from the ant bite (8) Renal insufficiency Is this a current diagnosis for this admission?: YesPlan: Resolved (9) Rhabdomyolysis Qualifiers: Rhabdomyolysis type: non-traumatic Qualified Code(s): M62.82 - Rhabdomyolysis Is this a current diagnosis for this admission?: YesPlan: Continue with IV fluids. Creatinine kinase remains elevated. (10) Aspiration into airway Qualifiers: Encounter type: initial encounter Qualified Code(s): T17.908A - Unspecified foreign body in respiratory tract, part unspecified causing other injury, initial encounter Is this a current diagnosis for this admission?: YesPlan: Continue with imipenem - Time Time Spent with patient: 25-34 minutes - Inpatient Certification Medical Necessity: Need Close Monitoring Due to Risk of Patient Decompensation, Need For IV Fluids, Need for IV Antibiotics
--- NOTE | 2017-01-14 12:37 | PDOC PROGRESS REPORT ---
Subjective Subjective:: Patient remains intubated and sedated. No changes overnight. Physical Exam Vital Signs: Temp Pulse Resp BP Pulse Ox 100.0 F 77 23 H 142/91 H 98 01/14/17 11:59 01/14/17 11:59 01/14/17 11:59 01/14/17 11:59 01/14/17 11:59 Intake & Output 01/13/17 01/14/17 01/15/17 06:59 06:59 06:59 Intake Total 3768 06056 Output Total 1555 2165 800 Balance 2213 78444 -800 Weight 68.6 kg Musculoskeletal exam: PRESENT: other - Right upper extremity: Blister along the lateral deltoid remains fluid-filled and without change. He has notable swelling throughout the right upper extremity compartments however soft and compressible. Radial pulse 2+. Cap refill less than 2 seconds. Results Laboratory Results: 01/14/17 06:12 01/14/17 06:12 01/13/17 01/13/17 01/13/17 12:35 15:50 16:05 WBC RBC Hgb Hct MCV MCH MCHC RDW Plt Count Carbonic Acid 0.92 L HCO3/H2CO3 Ratio 15:1 ABG pH 7.30 L ABG pCO2 30.4 L ABG pO2 110.0 H ABG HCO3 14.7 L ABG O2 Saturation 97.6 ABG Base Excess -10.1 FiO2 35% Sodium 139.5 139.0 Potassium 3.7 3.8 Chloride 113 H 113 H Carbon Dioxide 13 L 14 L Anion Gap 14 12 BUN 10 12 Creatinine 1.05 1.06 Est GFR ( Amer) > 60 > 60 Est GFR (Non-Af Amer) > 60 > 60 Glucose 126 H 133 H Lactic Acid Calcium 6.5 L* 6.7 L* Phosphorus Magnesium Albumin Urine Color Urine Appearance Urine pH Ur Specific [place] Urine Protein Urine Glucose (UA) Urine Ketones Urine Blood Urine Nitrite Ur Leukocyte Esterase Urine WBC (Auto) Urine RBC (Auto) 01/13/17 01/13/17 01/13/17 20:15 20:15 21:00 WBC RBC Hgb Hct MCV MCH MCHC RDW Plt Count Carbonic Acid 0.96 L HCO3/H2CO3 Ratio 18:1 ABG pH 7.37 ABG pCO2 31.8 L ABG pO2 62.7 L ABG HCO3 17.8 L ABG O2 Saturation 91.6 L ABG Base Excess -6.4 FiO2 21% Sodium 137.0 Potassium 3.6 Chloride 114 H Carbon Dioxide 15 L Anion Gap 8 BUN 14 Creatinine 1.01 Est GFR ( Amer) > 60 Est GFR (Non-Af Amer) > 60 Glucose 156 H Lactic Acid Calcium 6.0 L* Phosphorus Magnesium Albumin 1.9 L Urine Color Urine Appearance Urine pH Ur Specific [place] Urine Protein Urine Glucose (UA) Urine Ketones Urine Blood Urine Nitrite Ur Leukocyte Esterase Urine WBC (Auto) Urine RBC (Auto) 01/13/17 01/14/17 01/14/17 21:00 01:05 01:05 WBC RBC Hgb Hct MCV MCH MCHC RDW Plt Count Carbonic Acid 0.89 L HCO3/H2CO3 Ratio 19:1 ABG pH 7.38 ABG pCO2 29.7 L ABG pO2 85.9 ABG HCO3 17.1 L ABG O2 Saturation 96.5 ABG Base Excess -6.5 FiO2 25% Sodium Potassium Chloride Carbon Dioxide Anion Gap BUN Creatinine Est GFR ( Amer) Est GFR (Non-Af Amer) Glucose Lactic Acid Calcium Phosphorus Magnesium Albumin Urine Color YELLOW YELLOW Urine Appearance SLIGHTLY-CLOUDY SLIGHTLY-CLOUDY Urine pH 6.0 5.0 Ur Specific [place] 1.028 1.008 Urine Protein 100 H NEGATIVE Urine Glucose (UA) NEGATIVE 50 H Urine Ketones NEGATIVE NEGATIVE Urine Blood LARGE H LARGE H Urine Nitrite NEGATIVE NEGATIVE Ur Leukocyte Esterase NEGATIVE NEGATIVE Urine WBC (Auto) 3 0 Urine RBC (Auto) 2 0 01/14/17 01/14/17 01/14/17 01:10 06:12 06:12 WBC 17.1 H RBC 4.54 Hgb 13.9 D Hct 40.0 MCV 88 MCH 30.6 MCHC 34.7 RDW 13.8 Plt Count 163 Carbonic Acid HCO3/H2CO3 Ratio ABG pH ABG pCO2 ABG pO2 ABG HCO3 ABG O2 Saturation ABG Base Excess FiO2 Sodium 136.6 L 137.3 Potassium 4.0 4.1 Chloride 112 H 112 H Carbon Dioxide 16 L 15 L Anion Gap 9 10 BUN 16 17 Creatinine 1.00 0.94 Est GFR ( Amer) > 60 > 60 Est GFR (Non-Af Amer) > 60 > 60 Glucose 268 H 171 H Lactic Acid Calcium 5.9 L* 6.1 L* Phosphorus 2.5 Magnesium 1.7 Albumin 2.0 L Urine Color Urine Appearance Urine pH Ur Specific [place] Urine Protein Urine Glucose (UA) Urine Ketones Urine Blood Urine Nitrite Ur Leukocyte Esterase Urine WBC (Auto) Urine RBC (Auto) 01/14/17 01/14/17 06:12 06:12 WBC RBC Hgb Hct MCV MCH MCHC RDW Plt Count Carbonic Acid 0.87 L HCO3/H2CO3 Ratio 18:1 ABG pH 7.37 ABG pCO2 28.9 L ABG pO2 83.9 ABG HCO3 16.3 L ABG O2 Saturation 96.2 ABG Base Excess -7.4 FiO2 25% Sodium Potassium Chloride Carbon Dioxide Anion Gap BUN Creatinine Est GFR ( Amer) Est GFR (Non-Af Amer) Glucose Lactic Acid 5.6 H Calcium Phosphorus Magnesium Albumin Urine Color Urine Appearance Urine pH Ur Specific [place] Urine Protein Urine Glucose (UA) Urine Ketones Urine Blood Urine Nitrite Ur Leukocyte Esterase Urine WBC (Auto) Urine RBC (Auto) 01/13/17 01/13/17 01/13/17 04:25 08:33 12:35 Creatine Kinase 60345 H 19921 H 00499 H 01/13/17 01/13/17 01/14/17 16:05 20:15 01:10 Creatine Kinase 71769 H 48913 H 46435 H 01/14/17 06:12 Creatine Kinase 71599 H Impressions: Cervical Spine CT 01/12/17 00:00 IMPRESSION: NO ACUTE OR SIGNIFICANT FINDINGS IN THE CERVICAL SPINE. Head CT 01/12/17 00:00 IMPRESSION: NORMAL BRAIN CT WITHOUT CONTRAST. Chest X-Ray 01/14/17 06:00 IMPRESSION: No acute cardiopulmonary findings. Lines and tubes. Shoulder X-Ray 01/14/17 06:00 IMPRESSION: NO RADIOGRAPHIC EVIDENCE OF ACUTE INJURY. The limitation. Assessment & Plan - Diagnosis (1) Rhabdomyolysis Qualifiers: Rhabdomyolysis type: non-traumatic Qualified Code(s): M62.82 - Rhabdomyolysis Is this a current diagnosis for this admission?: YesPlan: I have reviewed patient's shoulder radiographs which demonstrate no evidence of osseous abnormality. Continue to demonstrate soft tissue swelling. On examination he does have notable swelling of the right upper extremity exact cause is unknown however it is likely he passed out on the side which has resulted in rhabdomyolysis and swelling. However missed compartment syndrome remains within the differential diagnosis once patient is no longer sedated or intubated further examination of the upper extremity can be done for evaluation.
--- NOTE | 2017-01-14 15:53 | PDOC PROGRESS REPORT ---
Subjective Progress Note for:: 01/14/17 Subjective:: Patient seen in the ICU today. He remains intubated and sedated. His cousin is by his bedside. Good urine output. Discussions were done with the treating nurse Monserrat. Labs and medications were reviewed. Physical Exam Vital Signs: Temp Pulse Resp BP Pulse Ox 100.0 F 67 22 H 156/99 H 98 01/14/17 14:00 01/14/17 14:00 01/14/17 14:05 01/14/17 14:00 01/14/17 14:05 Intake & Output 01/13/17 01/14/17 01/15/17 06:59 06:59 06:59 Intake Total 3768 01806 Output Total 1555 2165 1050 Balance 2213 95972 -1050 Weight 68.6 kg Exam: Remains intubated and sedated. Respiratory exam: PRESENT: clear to auscultation jesus, wheezes - Scattered. ABSENT: rhonchi Cardiovascular exam: PRESENT: +S1, +S2 GI/Abdominal exam: PRESENT: normal bowel sounds, soft. ABSENT: organomegaly, tenderness Extremities exam: ABSENT: pedal edema Skin exam: ABSENT: cyanosis, erythema, mottled, rash Results Laboratory Results: 01/14/17 06:12 01/14/17 06:12 01/13/17 01/13/17 01/13/17 15:50 16:05 20:15 WBC RBC Hgb Hct MCV MCH MCHC RDW Plt Count Carbonic Acid 0.92 L HCO3/H2CO3 Ratio 15:1 ABG pH 7.30 L ABG pCO2 30.4 L ABG pO2 110.0 H ABG HCO3 14.7 L ABG O2 Saturation 97.6 ABG Base Excess -10.1 FiO2 35% Sodium 139.0 137.0 Potassium 3.8 3.6 Chloride 113 H 114 H Carbon Dioxide 14 L 15 L Anion Gap 12 8 BUN 12 14 Creatinine 1.06 1.01 Est GFR ( Amer) > 60 > 60 Est GFR (Non-Af Amer) > 60 > 60 Glucose 133 H 156 H Lactic Acid Calcium 6.7 L* 6.0 L* Phosphorus Magnesium Albumin Urine Color Urine Appearance Urine pH Ur Specific [place] Urine Protein Urine Glucose (UA) Urine Ketones Urine Blood Urine Nitrite Ur Leukocyte Esterase Urine WBC (Auto) Urine RBC (Auto) 0701/13/17 01/13/17 20:15 21:00 21:00 WBC RBC Hgb Hct MCV MCH MCHC RDW Plt Count Carbonic Acid 0.96 L HCO3/H2CO3 Ratio 18:1 ABG pH 7.37 ABG pCO2 31.8 L ABG pO2 62.7 L ABG HCO3 17.8 L ABG O2 Saturation 91.6 L ABG Base Excess -6.4 FiO2 21% Sodium Potassium Chloride Carbon Dioxide Anion Gap BUN Creatinine Est GFR ( Amer) Est GFR (Non-Af Amer) Glucose Lactic Acid Calcium Phosphorus Magnesium Albumin 1.9 L Urine Color YELLOW Urine Appearance SLIGHTLY-CLOUDY Urine pH 6.0 Ur Specific [place] 1.028 Urine Protein 100 H Urine Glucose (UA) NEGATIVE Urine Ketones NEGATIVE Urine Blood LARGE H Urine Nitrite NEGATIVE Ur Leukocyte Esterase NEGATIVE Urine WBC (Auto) 3 Urine RBC (Auto) 2 01/14/17 01/14/17 01/14/17 01:05 01:05 01:10 WBC RBC Hgb Hct MCV MCH MCHC RDW Plt Count Carbonic Acid 0.89 L HCO3/H2CO3 Ratio 19:1 ABG pH 7.38 ABG pCO2 29.7 L ABG pO2 85.9 ABG HCO3 17.1 L ABG O2 Saturation 96.5 ABG Base Excess -6.5 FiO2 25% Sodium 136.6 L Potassium 4.0 Chloride 112 H Carbon Dioxide 16 L Anion Gap 9 BUN 16 Creatinine 1.00 Est GFR ( Amer) > 60 Est GFR (Non-Af Amer) > 60 Glucose 268 H Lactic Acid Calcium 5.9 L* Phosphorus Magnesium Albumin 2.0 L Urine Color YELLOW Urine Appearance SLIGHTLY-CLOUDY Urine pH 5.0 Ur Specific [place] 1.008 Urine Protein NEGATIVE Urine Glucose (UA) 50 H Urine Ketones NEGATIVE Urine Blood LARGE H Urine Nitrite NEGATIVE Ur Leukocyte Esterase NEGATIVE Urine WBC (Auto) 0 Urine RBC (Auto) 0 01/14/17 01/14/17 01/14/17 06:12 06:12 06:12 WBC 17.1 H RBC 4.54 Hgb 13.9 D Hct 40.0 MCV 88 MCH 30.6 MCHC 34.7 RDW 13.8 Plt Count 163 Carbonic Acid HCO3/H2CO3 Ratio ABG pH ABG pCO2 ABG pO2 ABG HCO3 ABG O2 Saturation ABG Base Excess FiO2 Sodium 137.3 Potassium 4.1 Chloride 112 H Carbon Dioxide 15 L Anion Gap 10 BUN 17 Creatinine 0.94 Est GFR ( Amer) > 60 Est GFR (Non-Af Amer) > 60 Glucose 171 H Lactic Acid 5.6 H Calcium 6.1 L* Phosphorus 2.5 Magnesium 1.7 Albumin Urine Color Urine Appearance Urine pH Ur Specific [place] Urine Protein Urine Glucose (UA) Urine Ketones Urine Blood Urine Nitrite Ur Leukocyte Esterase Urine WBC (Auto) Urine RBC (Auto) 01/14/17 06:12 WBC RBC Hgb Hct MCV MCH MCHC RDW Plt Count Carbonic Acid 0.87 L HCO3/H2CO3 Ratio 18:1 ABG pH 7.37 ABG pCO2 28.9 L ABG pO2 83.9 ABG HCO3 16.3 L ABG O2 Saturation 96.2 ABG Base Excess -7.4 FiO2 25% Sodium Potassium Chloride Carbon Dioxide Anion Gap BUN Creatinine Est GFR ( Amer) Est GFR (Non-Af Amer) Glucose Lactic Acid Calcium Phosphorus Magnesium Albumin Urine Color Urine Appearance Urine pH Ur Specific [place] Urine Protein Urine Glucose (UA) Urine Ketones Urine Blood Urine Nitrite Ur Leukocyte Esterase Urine WBC (Auto) Urine RBC (Auto) 01/13/17 01/13/17 01/13/17 04:25 08:33 12:35 Creatine Kinase 52384 H 90615 H 17175 H 01/13/17 01/13/17 01/14/17 16:05 20:15 01:10 Creatine Kinase 26190 H 02728 H 50718 H 01/14/17 06:12 Creatine Kinase 75262 H Impressions: Cervical Spine CT 01/12/17 00:00 IMPRESSION: NO ACUTE OR SIGNIFICANT FINDINGS IN THE CERVICAL SPINE. Head CT 01/12/17 00:00 IMPRESSION: NORMAL BRAIN CT WITHOUT CONTRAST. Chest X-Ray 01/14/17 06:00 IMPRESSION: No acute cardiopulmonary findings. Lines and tubes. Shoulder X-Ray 01/14/17 06:00 IMPRESSION: NO RADIOGRAPHIC EVIDENCE OF ACUTE INJURY. The limitation. Assessment & Plan - Diagnosis (1) Acute respiratory failure Qualifiers: Respiratory failure complication: unspecified whether with hypoxia or hypercapnia Qualified Code(s): J96.00 - Acute respiratory failure, unspecified whether with hypoxia or hypercapnia Is this a current diagnosis for this admission?: YesPlan: Combination of alcohol intoxication/toxicity with aspiration. (2) Alcohol intoxication Qualifiers: Complication of substance-induced condition: with unspecified complication Qualified Code(s): F10.929 - Alcohol use, unspecified with intoxication, unspecified Is this a current diagnosis for this admission?: YesPlan: Severe high levels of ethanol have come down very well. Continue vigorous fluid resuscitation. No indications for renal replacements. (3) Altered mental status Qualifiers: Altered mental status type: coma Coma depth: [place] coma 3-8 Coma timing: in the field (EMT or ambulance) Qualified Code(s): R40.2431 - [place] coma scale score 3-8, in the field [EMT or ambulance] Is this a current diagnosis for this admission?: Yes (4) Metabolic acidosis Is this a current diagnosis for this admission?: YesPlan: Stable. Have high lactic acid levels. Differential includes sepsis and possible crush injury evidenced by changes happening around his right shoulder. This is being managed by orthopedic surgery. Will continue on fluids and bicarb drip (5) Rhabdomyolysis Qualifiers: Rhabdomyolysis type: non-traumatic Qualified Code(s): M62.82 - Rhabdomyolysis Is this a current diagnosis for this admission?: YesPlan: Still continuing to have high CPK levels. Continue current treatment regimen and monitor closely. (6) Aspiration into airway Qualifiers: Encounter type: initial encounter Qualified Code(s): T17.908A - Unspecified foreign body in respiratory tract, part unspecified causing other injury, initial encounter Is this a current diagnosis for this admission?: YesPlan: Patient on antibiotics. Respiratory failure on ventilator (7) Insect bites and stings Is this a current diagnosis for this admission?: Yes
--- NOTE | 2017-01-14 16:43 | RADIOLOGY REPORT (SQ) ---
EXAM DESCRIPTION: VENOUS UNILATERAL UPPER COMPLETED DATE/TIME: 01/14/2017 4:35 pm REASON FOR STUDY: Right arm r/o DVT COMPARISON: None. TECHNIQUE: Dynamic and static merrill scale and color images acquired of the right arm venous system. S elected spectral images acquired with additional compression and augmentation maneuvers. The contrala teral subclavian vein and internal jugular vein were also imaged. Images stored on PACS. LIMITATIONS: None. FINDINGS: INTERNAL JUGULAR VEIN: Normal phasicity, compression, augmentation. No visualized echogeni c material on m[place] scale. No defects on color images. Comparison opposite side normal. SUBCLAVIAN VEIN: Normal compression, augmentation. No visualized echogenic material on [place] scale. No defects on color images. AXILLARY VEIN: Normal compression, augmentation. No visualized echogenic material on m[place] scale. No d efects on color images. BRACHIAL VEIN: Normal compression, augmentation. No visualized echogenic material on [place] scale. No d efects on color images. BASILIC VEIN: Normal compression, augmentation. No visualized echogenic material on m[place]ill scale. No de fects on color images. CEPHALIC VEIN: Normal compression, augmentation. No visualized echogenic material on merrill scale. No d efects on color images. OTHER: No other significant finding. CONTRALATERAL SUBCLAVIAN VEIN AND INTERNAL JUGULAR VEIN: Normal phasicity, compression and augmentation. No visualized echogenic material on merrill scale. No de fects on color images. IMPRESSION: NO EVIDENCE DVT OR SVT IN THE RIGHT ARM. COMMENT: Preliminary report was called by the technologist to the referring clinician's office at th e time of patient visit. TECHNICAL DOCUMENTATION: JOB ID: [id number] [employer]- All Rights Reserved
[2017-01-14] MEDS: NORMAL SALINE 1000 ML 1,000 ML with THIAMINE HCL 100 MG, MVI, ADULT NO.1 WITH VIT K 10 ... IV SCH ×4 (17:15)
[2017-01-14] MEDS: IPRATROPIUM/ALBUTEROL 0.5-2.5 MG/3 ML AMPUL NEB PRN (21:10)
[2017-01-15] MEDS: LORAZEPAM 24 MG/ D5W 240 ML IV PRN ×2 (00:35→13:28)
[2017-01-15] MEDS: PROPOFOL 100 ML IV PRN ×3 (01:23→22:19)
[2017-01-15] MEDS: DIPHENHYDRAMINE HCL 50 MG/ML VIAL IV SCH ×4 (02:45→21:41)
[2017-01-15 04:45] LABS: ABSOLUTE LYMPHOCYTES (AUTO) 0.7 10^3/uL (0.5-4.7); ABSOLUTE NEUT (AUTO) 11.9 10^3/uL (1.7-8.2); BASOPHILS % (AUTO) 0.2 % (0-2); HEMATOCRIT 35.8 % (37.9-51.0); HEMOGLOBIN 12.4 g/dL (13.5-17.0); HGB HCT DIFFERENCE 1.4; LYMPHOCYTES % (AUTO) 5.4 % (13-45); MEAN CORPUSCULAR HEMOGLOBIN 30.3 pg (27.0-33.4); MEAN CORPUSCULAR HGB CONC 34.6 g/dL (32.0-36.0); MEAN CORPUSCULAR VOLUME 88 fl (80-97); MONOCYTES % (AUTO) 7.2 % (3-13); RED BLOOD COUNT 4.09 10^6/uL (4.35-5.55); RED CELL DISTRIBUTION WIDTH 13.4 % (11.5-14.0); SEGMENTED NEUTROPHILS % (AUTO) 87.2 % (42-78); WHITE BLOOD COUNT 13.7 10^3/uL (4.0-10.5)
[2017-01-15 04:59] LABS: ALANINE AMINOTRANSFERASE 186 U/L (21-72); ALKALINE PHOSPHATASE 43 U/L (38-126); ANION GAP 6 (5-19); ASPARTATE AMINO TRANSFERASE 634 U/L (17-59); BILIRUBIN,DIRECT 0.2 mg/dL (0.0-0.4); BILIRUBIN,TOTAL 0.2 mg/dL (0.2-1.3); BLOOD UREA NITROGEN 16 mg/dL (7-20); CARBON DIOXIDE 19 mmol/L (22-30); CHLORIDE 115 mmol/L (98-107); CREATININE RESULT 0.88 mg/dL (0.52-1.25); GLUCOSE 158 mg/dL (75-110); POTASSIUM 3.8 mmol/L (3.6-5.0); SODIUM 140.1 mmol/L (137-145)
[2017-01-15 05:02] LABS: CREATINE KINASE 41462 U/L (55-170)
[2017-01-15 05:23] LABS: ARTERIAL BLOOD BASE EXCESS -2.3 mmol/L; ARTERIAL BLOOD O2 SATURATION 98.7 % (94-98)
[2017-01-15] MEDS: IMIPENEM/CILASTATIN SODIUM 500 MG in NORMAL SALINE 100 ML IV SCH ×3 (05:24→21:40)
[2017-01-15 05:45] LABS: CALCIUM 6.6 mg/dL (8.4-10.2)
--- NOTE | 2017-01-15 07:16 | RADIOLOGY REPORT (SQ) ---
EXAM DESCRIPTION: CHEST SINGLE VIEW COMPLETED DATE/TIME: 01/15/2017 6:57 am REASON FOR STUDY: acute resp fail COMPARISON: 01/14/2017. EXAM PARAMETERS: NUMBER OF VIEWS: One view. TECHNIQUE: Single frontal radiographic view of the chest acquired. RADIATION DOSE: NA LIMITATIONS: None. FINDINGS: LUNGS AND PLEURA: No opacities, masses or pneumothorax. No pleural effusion. MEDIASTINUM AND HILAR STRUCTURES: No masses. Contour normal. HEART AND VASCULAR STRUCTURES: Heart normal in size. Normal vasculature. BONES: No acute findings. HARDWARE: Adequate appearing endotracheal and enteric tubes. OTHER: No other significant finding. IMPRESSION: No significant interval change. No acute cardiopulmonary findings. Lines and tubes. TECHNICAL DOCUMENTATION: JOB ID: [id number]
[2017-01-15] MEDS ORDERED: HYDRALAZINE HCL INJ/PF 20 MG/1 ML SDV IV PRN (08:21)
[2017-01-15] MEDS: NORMAL SALINE 1000 ML 1,000 ML IV PRN ×2 (10:07→21:43)
[2017-01-15] MEDS: DEXTROSE 5%-WATER 1000 ML 1,000 ML with SODIUM BICARBONATE 150 MEQ IV PRN ×4 (10:12→22:19)
[2017-01-15] MEDS: METHYLPREDNISOLONE INJ 40 MG/1 ML SDV IV SCH ×2 (10:15→21:40)
[2017-01-15] MEDS: FUROSEMIDE INJ/PF 20 MG/2 ML SDV IV SCH ×2 (10:16→21:41)
[2017-01-15] MEDS: HEPARIN SOD (PORCINE) 5,000 UNIT/ML 1 ML SYRINGE SUBCUT SCH ×2 (10:16→21:42)
[2017-01-15] MEDS: FAMOTIDINE INJ/PF 20 MG/2 ML SDV IV SCH ×2 (10:16→21:42)
[2017-01-15] MEDS: CETIRIZINE 10 MG TABLET NG SCH (10:16)
--- NOTE | 2017-01-15 10:43 | PDOC PROGRESS REPORT ---
Subjective Progress Note for:: 01/15/17 Subjective:: Patient is intubated and sedated. Physical Exam Vital Signs: Temp Pulse Resp BP Pulse Ox 99.1 F 74 20 148/93 H 99 01/15/17 10:00 01/15/17 10:00 01/15/17 10:00 01/15/17 10:00 01/15/17 10:00 Intake & Output 01/14/17 01/15/17 01/16/17 06:59 06:59 06:59 Intake Total 20432 8784 Output Total 2165 3900 300 Balance 31382 4884 -300 Weight 80.5 kg 83.9 kg General appearance: PRESENT: no acute distress Eye exam: PRESENT: conjunctiva pink. ABSENT: scleral icterus Mouth exam: PRESENT: moist, tongue midline Neck exam: ABSENT: JVD Respiratory exam: PRESENT: clear to auscultation jesus. ABSENT: rales, rhonchi, wheezes Cardiovascular exam: PRESENT: RRR. ABSENT: diastolic murmur, rubs, systolic murmur GI/Abdominal exam: PRESENT: normal bowel sounds, soft. ABSENT: distended, guarding, mass, organolmegaly, rebound, tenderness Extremities exam: PRESENT: other - Right arm swelling slightly decreased from yesterday. ABSENT: calf tenderness, clubbing, pedal edema Neurological exam: PRESENT: other - Sedated Psychiatric exam: PRESENT: other - Unable to assess Skin exam: PRESENT: other - Vesicle on the right arm. Some surrounding erythema Results Laboratory Results: 01/15/17 04:15 01/15/17 04:15 01/15/17 01/15/17 01/15/17 04:15 04:15 04:15 WBC 13.7 H RBC 4.09 L Hgb 12.4 L Hct 35.8 L MCV 88 MCH 30.3 MCHC 34.6 RDW 13.4 Plt Count 152 Seg Neutrophils % 87.2 H Lymphocytes % 5.4 L Monocytes % 7.2 Eosinophils % 0.0 Basophils % 0.2 Absolute Neutrophils 11.9 H Absolute Lymphocytes 0.7 Absolute Monocytes 1.0 Absolute Eosinophils 0.0 Absolute Basophils 0.0 Carbonic Acid HCO3/H2CO3 Ratio ABG pH ABG pCO2 ABG pO2 ABG HCO3 ABG O2 Saturation ABG Base Excess FiO2 Sodium 140.1 Potassium 3.8 Chloride 115 H Carbon Dioxide 19 L Anion Gap 6 BUN 16 Creatinine 0.88 Est GFR ( Amer) > 60 Est GFR (Non-Af Amer) > 60 Glucose 158 H Lactic Acid 3.2 H Calcium 6.6 L* Total Bilirubin 0.2 AST 634 H ALT 186 H Alkaline Phosphatase 43 Total Protein 4.0 L Albumin 2.0 L 01/15/17 04:15 WBC RBC Hgb Hct MCV MCH MCHC RDW Plt Count Seg Neutrophils % Lymphocytes % Monocytes % Eosinophils % Basophils % Absolute Neutrophils Absolute Lymphocytes Absolute Monocytes Absolute Eosinophils Absolute Basophils Carbonic Acid 0.88 L HCO3/H2CO3 Ratio 23:1 ABG pH 7.46 H ABG pCO2 29.1 L ABG pO2 123.3 H ABG HCO3 20.3 ABG O2 Saturation 98.7 H ABG Base Excess -2.3 FiO2 25% Sodium Potassium Chloride Carbon Dioxide Anion Gap BUN Creatinine Est GFR ( Amer) Est GFR (Non-Af Amer) Glucose Lactic Acid Calcium Total Bilirubin AST ALT Alkaline Phosphatase Total Protein Albumin 01/13/17 02:35 Tracheal Aspirate Gram Stain - Final 01/13/17 01/13/17 01/13/17 04:25 08:33 12:35 Creatine Kinase 08144 H 23623 H 97000 H 01/13/17 01/13/17 01/14/17 16:05 20:15 01:10 Creatine Kinase 11073 H 96215 H 73967 H 01/14/17 01/15/17 06:12 04:15 Creatine Kinase 24351 H 32776 H Impressions: Cervical Spine CT 01/12/17 00:00 IMPRESSION: NO ACUTE OR SIGNIFICANT FINDINGS IN THE CERVICAL SPINE. Head CT 01/12/17 00:00 IMPRESSION: NORMAL BRAIN CT WITHOUT CONTRAST. Shoulder X-Ray 01/14/17 06:00 IMPRESSION: NO RADIOGRAPHIC EVIDENCE OF ACUTE INJURY. The limitation. Venous Doppler Study 01/14/17 14:36 IMPRESSION: NO EVIDENCE DVT OR SVT IN THE RIGHT ARM. Chest X-Ray 01/15/17 06:00 IMPRESSION: No significant interval change. No acute cardiopulmonary findings. Lines and tubes. Assessment & Plan - Diagnosis (1) Acute encephalopathy Is this a current diagnosis for this admission?: YesPlan: Likely secondary to alcohol intoxication. Test were negative for methanol or polyethylene glycol ingestion. Will continue to try to wean off the ventilator as mental status allows (2) Acute respiratory failure Qualifiers: Respiratory failure complication: unspecified whether with hypoxia or hypercapnia Qualified Code(s): J96.00 - Acute respiratory failure, unspecified whether with hypoxia or hypercapnia Is this a current diagnosis for this admission?: YesPlan: Currently on the ventilator. Pulmonary medicine is following. (3) Alcohol dependence Qualifiers: Substance use status: with intoxication Complication of substance- induced condition: with unspecified complication Qualified Code(s): F10.229 - Alcohol dependence with intoxication, unspecified Is this a current diagnosis for this admission?: YesPlan: Continue with benzodiazepines for alcohol withdrawal prevention (4) Elevated LFTs Is this a current diagnosis for this admission?: YesPlan: Secondary to alcohol ingestion. (5) Hypernatremia Is this a current diagnosis for this admission?: YesPlan: Resolved (6) Hypovolemic shock Is this a current diagnosis for this admission?: YesPlan: Resolved with IV fluids (7) Insect bites and stings Is this a current diagnosis for this admission?: YesPlan: Patient has several vesicles from the ant bite (8) Renal insufficiency Is this a current diagnosis for this admission?: YesPlan: Resolved (9) Rhabdomyolysis Qualifiers: Rhabdomyolysis type: non-traumatic Qualified Code(s): M62.82 - Rhabdomyolysis Is this a current diagnosis for this admission?: YesPlan: Continue with IV fluids. Creatinine kinase remains elevated. (10) Aspiration into airway Qualifiers: Encounter type: initial encounter Qualified Code(s): T17.908A - Unspecified foreign body in respiratory tract, part unspecified causing other injury, initial encounter Is this a current diagnosis for this admission?: YesPlan: Continue with imipenem - Time Time Spent with patient: 25-34 minutes - Inpatient Certification Medical Necessity: Need Close Monitoring Due to Risk of Patient Decompensation, Need for IV Antibiotics
--- NOTE | 2017-01-15 16:17 | PDOC PROGRESS REPORT ---
Subjective Progress Note for:: 01/15/17 Subjective:: Patient seen in the ICU today. Remains intubated and sedated. Discussions done with the treating nurse. Physical Exam Vital Signs: Temp Pulse Resp BP Pulse Ox 99.0 F 52 L 19 131/74 H 99 01/15/17 14:00 01/15/17 14:00 01/15/17 14:50 01/15/17 14:02 01/15/17 14:50 Intake & Output 01/14/17 01/15/17 01/16/17 06:59 06:59 06:59 Intake Total 06849 8784 Output Total 2165 3900 1885 Balance 30081 4884 -1885 Weight 80.5 kg 83.9 kg Exam: Remains intubated and sedated. Respiratory exam: PRESENT: clear to auscultation jesus. ABSENT: crackles, rhonchi Cardiovascular exam: PRESENT: +S1, +S2 GI/Abdominal exam: PRESENT: normal bowel sounds, soft. ABSENT: organomegaly, tenderness Extremities exam: ABSENT: pedal edema Results Laboratory Results: 01/15/17 04:15 01/15/17 04:15 01/15/17 01/15/17 01/15/17 04:15 04:15 04:15 WBC 13.7 H RBC 4.09 L Hgb 12.4 L Hct 35.8 L MCV 88 MCH 30.3 MCHC 34.6 RDW 13.4 Plt Count 152 Seg Neutrophils % 87.2 H Lymphocytes % 5.4 L Monocytes % 7.2 Eosinophils % 0.0 Basophils % 0.2 Absolute Neutrophils 11.9 H Absolute Lymphocytes 0.7 Absolute Monocytes 1.0 Absolute Eosinophils 0.0 Absolute Basophils 0.0 Carbonic Acid HCO3/H2CO3 Ratio ABG pH ABG pCO2 ABG pO2 ABG HCO3 ABG O2 Saturation ABG Base Excess FiO2 Sodium 140.1 Potassium 3.8 Chloride 115 H Carbon Dioxide 19 L Anion Gap 6 BUN 16 Creatinine 0.88 Est GFR ( Amer) > 60 Est GFR (Non-Af Amer) > 60 Glucose 158 H Lactic Acid 3.2 H Calcium 6.6 L* Total Bilirubin 0.2 AST 634 H ALT 186 H Alkaline Phosphatase 43 Total Protein 4.0 L Albumin 2.0 L 01/15/17 04:15 WBC RBC Hgb Hct MCV MCH MCHC RDW Plt Count Seg Neutrophils % Lymphocytes % Monocytes % Eosinophils % Basophils % Absolute Neutrophils Absolute Lymphocytes Absolute Monocytes Absolute Eosinophils Absolute Basophils Carbonic Acid 0.88 L HCO3/H2CO3 Ratio 23:1 ABG pH 7.46 H ABG pCO2 29.1 L ABG pO2 123.3 H ABG HCO3 20.3 ABG O2 Saturation 98.7 H ABG Base Excess -2.3 FiO2 25% Sodium Potassium Chloride Carbon Dioxide Anion Gap BUN Creatinine Est GFR ( Amer) Est GFR (Non-Af Amer) Glucose Lactic Acid Calcium Total Bilirubin AST ALT Alkaline Phosphatase Total Protein Albumin 01/13/17 02:35 Tracheal Aspirate Gram Stain - Final 01/13/17 02:35 Tracheal Aspirate Sputum Culture - Final Staphylococcus Aureus Haemophilus Influenzae Reduced Normal Nadiya 01/13/17 01/13/17 01/13/17 04:25 08:33 12:35 Creatine Kinase 66580 H 81496 H 69878 H 01/13/17 01/13/17 01/14/17 16:05 20:15 01:10 Creatine Kinase 42920 H 50337 H 39300 H 01/14/17 01/15/17 06:12 04:15 Creatine Kinase 71386 H 67124 H Impressions: Cervical Spine CT 01/12/17 00:00 IMPRESSION: NO ACUTE OR SIGNIFICANT FINDINGS IN THE CERVICAL SPINE. Head CT 01/12/17 00:00 IMPRESSION: NORMAL BRAIN CT WITHOUT CONTRAST. Shoulder X-Ray 01/14/17 06:00 IMPRESSION: NO RADIOGRAPHIC EVIDENCE OF ACUTE INJURY. The limitation. Venous Doppler Study 01/14/17 14:36 IMPRESSION: NO EVIDENCE DVT OR SVT IN THE RIGHT ARM. Chest X-Ray 01/15/17 06:00 IMPRESSION: No significant interval change. No acute cardiopulmonary findings. Lines and tubes. Assessment & Plan - Diagnosis (1) Acute respiratory failure Qualifiers: Respiratory failure complication: unspecified whether with hypoxia or hypercapnia Qualified Code(s): J96.00 - Acute respiratory failure, unspecified whether with hypoxia or hypercapnia Is this a current diagnosis for this admission?: YesPlan: Combination of alcohol intoxication/toxicity with possible aspiration. Intubated and sedated. (2) Alcohol intoxication Qualifiers: Complication of substance-induced condition: with unspecified complication Qualified Code(s): F10.929 - Alcohol use, unspecified with intoxication, unspecified Is this a current diagnosis for this admission?: YesPlan: Continue vigorous fluid resuscitation. No indications for renal replacements. (3) Altered mental status Qualifiers: Altered mental status type: coma Coma depth: [place] coma 3-8 Coma timing: in the field (EMT or ambulance) Qualified Code(s): R40.2431 - [place] coma scale score 3-8, in the field [EMT or ambulance] Is this a current diagnosis for this admission?: Yes (4) Metabolic acidosis Is this a current diagnosis for this admission?: YesPlan: Improving on the current treatment regimens. I am going to sign off this gentleman's case. Please call on a as needed basis. (5) Rhabdomyolysis Qualifiers: Rhabdomyolysis type: non-traumatic Qualified Code(s): M62.82 - Rhabdomyolysis Is this a current diagnosis for this admission?: YesPlan: Positives include obtundation and unresponsiveness. Other contributing factors also include a possible mild compartment syndrome which was missed affecting his right upper arm.Is being evaluated and managed by orthopedic surgery. continue on current management principles. (6) Aspiration into airway Qualifiers: Encounter type: initial encounter Qualified Code(s): T17.908A - Unspecified foreign body in respiratory tract, part unspecified causing other injury, initial encounter Is this a current diagnosis for this admission?: Yes (7) Insect bites and stings Is this a current diagnosis for this admission?: Yes
[2017-01-15] MEDS: NORMAL SALINE 1000 ML 1,000 ML with THIAMINE HCL 100 MG, MVI, ADULT NO.1 WITH VIT K 10 ... IV SCH ×4 (17:24)
--- NOTE | 2017-01-15 19:14 | PDOC PROGRESS REPORT ---
Subjective Progress Note for:: 01/15/17 Subjective:: Intubated and sedated Physical Exam Vital Signs: Temp Pulse Resp BP Pulse Ox 98.1 F 54 L 20 174/99 H 99 01/15/17 08:00 01/15/17 08:00 01/15/17 08:00 01/15/17 08:00 01/15/17 08:00 Intake & Output 01/14/17 01/15/17 01/16/17 06:59 06:59 06:59 Intake Total 16463 8784 Output Total 2165 3900 140 Balance 08602 4884 -140 Weight 80.5 kg 83.9 kg General appearance: PRESENT: no acute distress, disheveled, well-developed Head exam: PRESENT: atraumatic, normocephalic Eye exam: PRESENT: conjunctiva pale Mouth exam: PRESENT: dry mucosa, neck supple, tongue midline, other - ET tube in place Neck exam: ABSENT: carotid bruit, JVD, lymphadenopathy, thyromegaly Respiratory exam: PRESENT: decreased breath sounds, prolonged expiratory phas, rhonchi, symmetrical, unlabored Cardiovascular exam: PRESENT: RRR, +S1, +S2 Pulses: PRESENT: normal radial pulses GI/Abdominal exam: PRESENT: normal bowel sounds, soft. ABSENT: distended, guarding, mass, organolmegaly, rebound, tenderness Rectal exam: PRESENT: deferred Gentrourinary exam: PRESENT: indwelling catheter Musculoskeletal exam: PRESENT: other - Vesicular lesion right upper extremity Results Laboratory Results: 01/15/17 04:15 01/15/17 04:15 01/15/17 01/15/17 01/15/17 04:15 04:15 04:15 WBC 13.7 H RBC 4.09 L Hgb 12.4 L Hct 35.8 L MCV 88 MCH 30.3 MCHC 34.6 RDW 13.4 Plt Count 152 Seg Neutrophils % 87.2 H Lymphocytes % 5.4 L Monocytes % 7.2 Eosinophils % 0.0 Basophils % 0.2 Absolute Neutrophils 11.9 H Absolute Lymphocytes 0.7 Absolute Monocytes 1.0 Absolute Eosinophils 0.0 Absolute Basophils 0.0 Carbonic Acid HCO3/H2CO3 Ratio ABG pH ABG pCO2 ABG pO2 ABG HCO3 ABG O2 Saturation ABG Base Excess FiO2 Sodium 140.1 Potassium 3.8 Chloride 115 H Carbon Dioxide 19 L Anion Gap 6 BUN 16 Creatinine 0.88 Est GFR ( Amer) > 60 Est GFR (Non-Af Amer) > 60 Glucose 158 H Lactic Acid 3.2 H Calcium 6.6 L* Total Bilirubin 0.2 AST 634 H ALT 186 H Alkaline Phosphatase 43 Total Protein 4.0 L Albumin 2.0 L 01/15/17 04:15 WBC RBC Hgb Hct MCV MCH MCHC RDW Plt Count Seg Neutrophils % Lymphocytes % Monocytes % Eosinophils % Basophils % Absolute Neutrophils Absolute Lymphocytes Absolute Monocytes Absolute Eosinophils Absolute Basophils Carbonic Acid 0.88 L HCO3/H2CO3 Ratio 23:1 ABG pH 7.46 H ABG pCO2 29.1 L ABG pO2 123.3 H ABG HCO3 20.3 ABG O2 Saturation 98.7 H ABG Base Excess -2.3 FiO2 25% Sodium Potassium Chloride Carbon Dioxide Anion Gap BUN Creatinine Est GFR ( Amer) Est GFR (Non-Af Amer) Glucose Lactic Acid Calcium Total Bilirubin AST ALT Alkaline Phosphatase Total Protein Albumin 01/13/17 01/13/17 01/13/17 04:25 08:33 12:35 Creatine Kinase 81814 H 71303 H 55221 H 01/13/17 01/13/17 01/14/17 16:05 20:15 01:10 Creatine Kinase 26835 H 58669 H 00131 H 01/14/17 01/15/17 06:12 04:15 Creatine Kinase 10984 H 26300 H Impressions: Cervical Spine CT 01/12/17 00:00 IMPRESSION: NO ACUTE OR SIGNIFICANT FINDINGS IN THE CERVICAL SPINE. Head CT 01/12/17 00:00 IMPRESSION: NORMAL BRAIN CT WITHOUT CONTRAST. Shoulder X-Ray 01/14/17 06:00 IMPRESSION: NO RADIOGRAPHIC EVIDENCE OF ACUTE INJURY. The limitation. Venous Doppler Study 01/14/17 14:36 IMPRESSION: NO EVIDENCE DVT OR SVT IN THE RIGHT ARM. Chest X-Ray 01/15/17 06:00 IMPRESSION: No significant interval change. No acute cardiopulmonary findings. Lines and tubes. Assessment & Plan - Diagnosis (1) Alcohol dependence Qualifiers: Substance use status: with intoxication Complication of substance- induced condition: with unspecified complication Qualified Code(s): F10.229 - Alcohol dependence with intoxication, unspecified Is this a current diagnosis for this admission?: Yes (2) Alcohol intoxication Qualifiers: Complication of substance-induced condition: with unspecified complication Qualified Code(s): F10.929 - Alcohol use, unspecified with intoxication, unspecified Is this a current diagnosis for this admission?: Yes (3) Altered mental status Qualifiers: Altered mental status type: coma Coma depth: [place] coma 3-8 Coma timing: in the field (EMT or ambulance) Qualified Code(s): R40.2431 - [place] coma scale score 3-8, in the field [EMT or ambulance] Is this a current diagnosis for this admission?: Yes (4) Dehydration Is this a current diagnosis for this admission?: No (5) Metabolic acidosis Is this a current diagnosis for this admission?: YesPlan: Persistent non-anion gap metabolic acidosis (6) Rhabdomyolysis Qualifiers: Rhabdomyolysis type: non-traumatic Qualified Code(s): M62.82 - Rhabdomyolysis Is this a current diagnosis for this admission?: YesPlan: Minimal decrease in enzymes - Time Critical Time spent with patient: 35 or more minutes - 45 minutes
[2017-01-16] MEDS: PROPOFOL 100 ML IV PRN ×3 (03:03→21:41)
[2017-01-16] MEDS: LORAZEPAM 24 MG/ D5W 240 ML IV PRN ×2 (03:03→21:41)
[2017-01-16] MEDS: DIPHENHYDRAMINE HCL 50 MG/ML VIAL IV SCH ×4 (03:05→21:40)
[2017-01-16 04:36] LABS: ABSOLUTE LYMPHOCYTES (AUTO) 1.1 10^3/uL (0.5-4.7); ABSOLUTE MONOCYTES (AUTO) 0.7 10^3/uL (0.1-1.4); ABSOLUTE NEUT (AUTO) 9.8 10^3/uL (1.7-8.2); BASOPHILS % (AUTO) 0.1 % (0-2); HEMATOCRIT 34.1 % (37.9-51.0); HGB HCT DIFFERENCE 1.9; LYMPHOCYTES % (AUTO) 9.4 % (13-45); MEAN CORPUSCULAR HEMOGLOBIN 30.3 pg (27.0-33.4); MEAN CORPUSCULAR HGB CONC 35.3 g/dL (32.0-36.0); MEAN CORPUSCULAR VOLUME 86 fl (80-97); RED BLOOD COUNT 3.97 10^6/uL (4.35-5.55); RED CELL DISTRIBUTION WIDTH 13.3 % (11.5-14.0); SEGMENTED NEUTROPHILS % (AUTO) 84.5 % (42-78); WHITE BLOOD COUNT 11.6 10^3/uL (4.0-10.5)
[2017-01-16] MEDS: IMIPENEM/CILASTATIN SODIUM 500 MG in NORMAL SALINE 100 ML IV SCH ×3 (05:06→21:40)
[2017-01-16] MEDS: NORMAL SALINE 1000 ML 1,000 ML IV PRN ×3 (05:06→21:43)
[2017-01-16 05:26] LABS: ARTERIAL BLOOD BASE EXCESS 3.8 mmol/L; ARTERIAL BLOOD O2 SATURATION 98.6 % (94-98)
[2017-01-16 05:29] LABS: BLOOD UREA NITROGEN 16 mg/dL (7-20); CALCIUM 7.2 mg/dL (8.4-10.2); CARBON DIOXIDE 26 mmol/L (22-30); CREATININE RESULT 0.77 mg/dL (0.52-1.25); GLUCOSE 141 mg/dL (75-110); MAGNESIUM 2.1 mg/dL (1.6-2.3); POTASSIUM 3.1 mmol/L (3.6-5.0)
[2017-01-16 05:53] LABS: CHLORIDE 112 mmol/L (98-107); SODIUM 141.8 mmol/L (137-145)
[2017-01-16 06:04] LABS: ANION GAP 4 (5-19)
[2017-01-16] MEDS ORDERED: DEXTROSE 5%-WATER 1000 ML 1,000 ML with SODIUM BICARBONATE 150 MEQ IV PRN ×2 (06:36)
[2017-01-16] MEDS: POTASSIUM CHLORIDE 20 MEQ/50 ML RTU IV SCH ×2 (06:41→08:06)
--- NOTE | 2017-01-16 07:35 | RADIOLOGY REPORT (SQ) ---
EXAM DESCRIPTION: CHEST SINGLE VIEW COMPLETED DATE/TIME: 01/16/2017 6:36 am REASON FOR STUDY: resp failure COMPARISON: 01/15/2017. EXAM PARAMETERS: NUMBER OF VIEWS: One view. TECHNIQUE: Single frontal radiographic view of the chest acquired. RADIATION DOSE: NA LIMITATIONS: None. FINDINGS: LUNGS AND PLEURA: No opacities, masses or pneumothorax. No pleural effusion. MEDIASTINUM AND HILAR STRUCTURES: No masses. Contour normal. HEART AND VASCULAR STRUCTURES: Heart normal in size. Normal vasculature. BONES: No acute findings. HARDWARE: Adequate appearing endotracheal tube and likely adequate NG tube partially obscured distall y. OTHER: No other significant finding. IMPRESSION: No acute cardiopulmonary findings. Lines and tubes. TECHNICAL DOCUMENTATION: JOB ID: [id number]
[2017-01-16] MEDS: CETIRIZINE 10 MG TABLET NG SCH (09:38)
[2017-01-16] MEDS: FAMOTIDINE INJ/PF 20 MG/2 ML SDV IV SCH ×2 (09:38→21:39)
[2017-01-16] MEDS: FUROSEMIDE INJ/PF 20 MG/2 ML SDV IV SCH ×2 (09:39→21:39)
[2017-01-16] MEDS: HEPARIN SOD (PORCINE) 5,000 UNIT/ML 1 ML SYRINGE SUBCUT SCH ×2 (09:39→21:42)
[2017-01-16] MEDS: METHYLPREDNISOLONE INJ 40 MG/1 ML SDV IV SCH ×2 (09:39→21:39)
--- NOTE | 2017-01-16 11:52 | PDOC PROGRESS REPORT ---
Subjective Progress Note for:: 01/16/17 Subjective:: Patient is intubated and sedated. Physical Exam Vital Signs: Temp Pulse Resp BP Pulse Ox 97.2 F 46 L 13 143/93 H 99 01/16/17 08:00 01/16/17 10:00 01/16/17 10:02 01/16/17 10:02 01/16/17 10:02 Intake & Output 01/15/17 01/16/17 01/17/17 06:59 06:59 06:59 Intake Total 8784 6299 Output Total 3900 5155 350 Balance 4884 1144 -350 Weight 83.9 kg 86.6 kg General appearance: PRESENT: no acute distress Eye exam: PRESENT: conjunctiva pink. ABSENT: scleral icterus Mouth exam: PRESENT: moist, tongue midline Neck exam: ABSENT: JVD Respiratory exam: PRESENT: clear to auscultation jesus. ABSENT: rales, rhonchi, wheezes Cardiovascular exam: PRESENT: RRR. ABSENT: diastolic murmur, rubs, systolic murmur GI/Abdominal exam: PRESENT: normal bowel sounds, soft. ABSENT: distended, guarding, mass, organolmegaly, rebound, tenderness Extremities exam: PRESENT: other - Decreased edema of the right arm.. ABSENT: calf tenderness, clubbing, pedal edema Neurological exam: PRESENT: other - Intubated and sedated Psychiatric exam: PRESENT: other - Unable to assess Skin exam: PRESENT: dry, intact, warm. ABSENT: cyanosis, rash Results Laboratory Results: 01/16/17 04:05 01/16/17 04:05 01/16/17 01/16/17 01/16/17 04:05 04:05 05:00 WBC 11.6 H RBC 3.97 L Hgb 12.0 L Hct 34.1 L MCV 86 MCH 30.3 MCHC 35.3 RDW 13.3 Plt Count 136 L Seg Neutrophils % 84.5 H Lymphocytes % 9.4 L Monocytes % 6.0 Eosinophils % 0.0 Basophils % 0.1 Absolute Neutrophils 9.8 H Absolute Lymphocytes 1.1 Absolute Monocytes 0.7 Absolute Eosinophils 0.0 Absolute Basophils 0.0 Carbonic Acid 0.74 L HCO3/H2CO3 Ratio 32:1 ABG pH 7.61 H* ABG pCO2 24.6 L ABG pO2 104.1 H ABG HCO3 24.0 ABG O2 Saturation 98.6 H ABG Base Excess 3.8 FiO2 25% Sodium 141.8 Potassium 3.1 L Chloride 112 H Carbon Dioxide 26 Anion Gap 4 L BUN 16 Creatinine 0.77 Est GFR ( Amer) > 60 Est GFR (Non-Af Amer) > 60 Glucose 141 H Calcium 7.2 L Magnesium 2.1 01/13/17 02:35 Tracheal Aspirate Gram Stain - Final 01/13/17 02:35 Tracheal Aspirate Sputum Culture - Final Staphylococcus Aureus Haemophilus Influenzae Reduced Normal Nadiya 01/13/17 01/13/17 01/13/17 04:25 08:33 12:35 Creatine Kinase 93953 H 98835 H 46787 H 01/13/17 01/13/17 01/14/17 16:05 20:15 01:10 Creatine Kinase 17957 H 36197 H 83189 H 01/14/17 01/15/17 01/16/17 06:12 04:15 04:05 Creatine Kinase 81248 H 91623 H 15598 H Impressions: Cervical Spine CT 01/12/17 00:00 IMPRESSION: NO ACUTE OR SIGNIFICANT FINDINGS IN THE CERVICAL SPINE. Head CT 01/12/17 00:00 IMPRESSION: NORMAL BRAIN CT WITHOUT CONTRAST. Shoulder X-Ray 01/14/17 06:00 IMPRESSION: NO RADIOGRAPHIC EVIDENCE OF ACUTE INJURY. The limitation. Venous Doppler Study 01/14/17 14:36 IMPRESSION: NO EVIDENCE DVT OR SVT IN THE RIGHT ARM. Chest X-Ray 01/16/17 06:00 IMPRESSION: No acute cardiopulmonary findings. Lines and tubes. Assessment & Plan - Diagnosis (1) Acute encephalopathy Is this a current diagnosis for this admission?: YesPlan: Likely secondary to alcohol intoxication. Continue to try to wean off the ventilator (2) Acute respiratory failure Qualifiers: Respiratory failure complication: unspecified whether with hypoxia or hypercapnia Qualified Code(s): J96.00 - Acute respiratory failure, unspecified whether with hypoxia or hypercapnia Is this a current diagnosis for this admission?: YesPlan: Currently on the ventilator. Pulmonary medicine is following. (3) Alcohol dependence Qualifiers: Substance use status: with intoxication Complication of substance- induced condition: with unspecified complication Qualified Code(s): F10.229 - Alcohol dependence with intoxication, unspecified Is this a current diagnosis for this admission?: YesPlan: Continue with benzodiazepines for alcohol withdrawal prevention (4) Elevated LFTs Is this a current diagnosis for this admission?: YesPlan: Secondary to alcohol ingestion. (5) Hypernatremia Is this a current diagnosis for this admission?: YesPlan: Resolved (6) Hypovolemic shock Is this a current diagnosis for this admission?: YesPlan: Resolved with IV fluids (7) Insect bites and stings Is this a current diagnosis for this admission?: YesPlan: Patient has several vesicles from the ant bite (8) Renal insufficiency Is this a current diagnosis for this admission?: YesPlan: Resolved (9) Rhabdomyolysis Qualifiers: Rhabdomyolysis type: non-traumatic Qualified Code(s): M62.82 - Rhabdomyolysis Is this a current diagnosis for this admission?: YesPlan: Continue with IV fluids. Creatinine kinase remains elevated. (10) Aspiration into airway Qualifiers: Encounter type: initial encounter Qualified Code(s): T17.908A - Unspecified foreign body in respiratory tract, part unspecified causing other injury, initial encounter Is this a current diagnosis for this admission?: YesPlan: Continue with imipenem - Time Time Spent with patient: 25-34 minutes - Inpatient Certification Medical Necessity: Need Close Monitoring Due to Risk of Patient Decompensation, Need For IV Fluids
[2017-01-16 13:45] LABS: ARTERIAL BLOOD BASE EXCESS 3.6 mmol/L; ARTERIAL BLOOD O2 SATURATION 97.9 % (94-98)
--- NOTE | 2017-01-16 13:59 | PDOC PROGRESS REPORT ---
Subjective Progress Note for:: 01/16/17 Subjective:: Intubated and sedated Physical Exam Vital Signs: Temp Pulse Resp BP Pulse Ox 97.2 F 45 L 20 138/89 H 98 01/16/17 08:00 01/16/17 08:00 01/16/17 08:00 01/16/17 08:00 01/16/17 08:00 Intake & Output 01/15/17 01/16/17 01/17/17 06:59 06:59 06:59 Intake Total 8784 6299 Output Total 3900 5155 350 Balance 4884 1144 -350 Weight 83.9 kg 86.6 kg General appearance: PRESENT: no acute distress, disheveled, well-developed Head exam: PRESENT: atraumatic, normocephalic Eye exam: PRESENT: conjunctiva pale Mouth exam: PRESENT: dry mucosa, neck supple, tongue midline, other - Endotracheal tube in place Neck exam: ABSENT: carotid bruit, JVD, lymphadenopathy, thyromegaly Respiratory exam: PRESENT: decreased breath sounds, prolonged expiratory phas, rhonchi, symmetrical, unlabored Cardiovascular exam: PRESENT: bradycardia, RRR, +S1, +S2 Pulses: PRESENT: normal radial pulses GI/Abdominal exam: PRESENT: normal bowel sounds, soft. ABSENT: distended, guarding, mass, organolmegaly, rebound, tenderness Rectal exam: PRESENT: deferred Gentrourinary exam: PRESENT: indwelling catheter Musculoskeletal exam: PRESENT: normal inspection Skin exam: PRESENT: dry, warm Results Laboratory Results: 01/16/17 04:05 01/16/17 04:05 01/16/17 01/16/17 01/16/17 04:05 04:05 05:00 WBC 11.6 H RBC 3.97 L Hgb 12.0 L Hct 34.1 L MCV 86 MCH 30.3 MCHC 35.3 RDW 13.3 Plt Count 136 L Seg Neutrophils % 84.5 H Lymphocytes % 9.4 L Monocytes % 6.0 Eosinophils % 0.0 Basophils % 0.1 Absolute Neutrophils 9.8 H Absolute Lymphocytes 1.1 Absolute Monocytes 0.7 Absolute Eosinophils 0.0 Absolute Basophils 0.0 Carbonic Acid 0.74 L HCO3/H2CO3 Ratio 32:1 ABG pH 7.61 H* ABG pCO2 24.6 L ABG pO2 104.1 H ABG HCO3 24.0 ABG O2 Saturation 98.6 H ABG Base Excess 3.8 FiO2 25% Sodium 141.8 Potassium 3.1 L Chloride 112 H Carbon Dioxide 26 Anion Gap 4 L BUN 16 Creatinine 0.77 Est GFR ( Amer) > 60 Est GFR (Non-Af Amer) > 60 Glucose 141 H Calcium 7.2 L Magnesium 2.1 01/13/17 02:35 Tracheal Aspirate Gram Stain - Final 01/13/17 02:35 Tracheal Aspirate Sputum Culture - Final Staphylococcus Aureus Haemophilus Influenzae Reduced Normal Nadiya 01/13/17 01/13/17 01/13/17 04:25 08:33 12:35 Creatine Kinase 14248 H 55548 H 84028 H 01/13/17 01/13/17 01/14/17 16:05 20:15 01:10 Creatine Kinase 96697 H 92852 H 00021 H 01/14/17 01/15/17 06:12 04:15 Creatine Kinase 73645 H 08164 H Impressions: Cervical Spine CT 01/12/17 00:00 IMPRESSION: NO ACUTE OR SIGNIFICANT FINDINGS IN THE CERVICAL SPINE. Head CT 01/12/17 00:00 IMPRESSION: NORMAL BRAIN CT WITHOUT CONTRAST. Shoulder X-Ray 01/14/17 06:00 IMPRESSION: NO RADIOGRAPHIC EVIDENCE OF ACUTE INJURY. The limitation. Venous Doppler Study 01/14/17 14:36 IMPRESSION: NO EVIDENCE DVT OR SVT IN THE RIGHT ARM. Chest X-Ray 01/16/17 06:00 IMPRESSION: No acute cardiopulmonary findings. Lines and tubes. Assessment & Plan - Diagnosis (1) Alcohol dependence Qualifiers: Substance use status: with intoxication Complication of substance- induced condition: with unspecified complication Qualified Code(s): F10.229 - Alcohol dependence with intoxication, unspecified Is this a current diagnosis for this admission?: Yes (2) Alcohol intoxication Qualifiers: Complication of substance-induced condition: with unspecified complication Qualified Code(s): F10.929 - Alcohol use, unspecified with intoxication, unspecified Is this a current diagnosis for this admission?: Yes (3) Altered mental status Qualifiers: Altered mental status type: coma Coma depth: [place] coma 3-8 Coma timing: in the field (EMT or ambulance) Qualified Code(s): R40.2431 - [place] coma scale score 3-8, in the field [EMT or ambulance] Is this a current diagnosis for this admission?: Yes (4) Dehydration Is this a current diagnosis for this admission?: No (5) Metabolic acidosis Is this a current diagnosis for this admission?: Yes (6) Rhabdomyolysis Qualifiers: Rhabdomyolysis type: non-traumatic Qualified Code(s): M62.82 - Rhabdomyolysis Is this a current diagnosis for this admission?: Yes - Time Critical Time spent with patient: 35 or more minutes - Spoke with RN PCP and nephrology 55 min
[2017-01-16] MEDS ORDERED: HYDRALAZINE HCL INJ/PF 20 MG/1 ML SDV IV PRN (15:06)
[2017-01-16] MEDS: NORMAL SALINE 1000 ML 1,000 ML with THIAMINE HCL 100 MG, MVI, ADULT NO.1 WITH VIT K 10 ... IV SCH ×4 (17:17)
[2017-01-17] MEDS: DIPHENHYDRAMINE HCL 50 MG/ML VIAL IV SCH ×2 (02:52→09:24)
[2017-01-17] MEDS: PROPOFOL 100 ML IV PRN ×5 (02:52→22:33)
[2017-01-17 04:43] LABS: ABSOLUTE LYMPHOCYTES (AUTO) 1.4 10^3/uL (0.5-4.7); ABSOLUTE NEUT (AUTO) 10.4 10^3/uL (1.7-8.2); BASOPHILS % (AUTO) 0.1 % (0-2); EOSINOPHILS % (AUTO) 0.1 % (0-6); HEMATOCRIT 33.7 % (37.9-51.0); HEMOGLOBIN 11.8 g/dL (13.5-17.0); HGB HCT DIFFERENCE 1.7; LYMPHOCYTES % (AUTO) 10.8 % (13-45); MEAN CORPUSCULAR HEMOGLOBIN 30.5 pg (27.0-33.4); MEAN CORPUSCULAR HGB CONC 34.9 g/dL (32.0-36.0); MEAN CORPUSCULAR VOLUME 88 fl (80-97); RED BLOOD COUNT 3.85 10^6/uL (4.35-5.55); RED CELL DISTRIBUTION WIDTH 13.3 % (11.5-14.0); WHITE BLOOD COUNT 12.9 10^3/uL (4.0-10.5)
[2017-01-17 05:05] LABS: ALANINE AMINOTRANSFERASE 218 U/L (21-72); ALKALINE PHOSPHATASE 50 U/L (38-126); ASPARTATE AMINO TRANSFERASE 451 U/L (17-59); BILIRUBIN,DIRECT 0.3 mg/dL (0.0-0.4); BILIRUBIN,TOTAL 0.4 mg/dL (0.2-1.3); BLOOD UREA NITROGEN 19 mg/dL (7-20); CALCIUM 7.4 mg/dL (8.4-10.2); CARBON DIOXIDE 28 mmol/L (22-30); CHLORIDE 111 mmol/L (98-107); CREATININE RESULT 0.78 mg/dL (0.52-1.25); GLUCOSE 105 mg/dL (75-110); MAGNESIUM 2.1 mg/dL (1.6-2.3); PHOSPHORUS 3.4 mg/dL (2.5-4.5); POTASSIUM 3.4 mmol/L (3.6-5.0); SODIUM 140.5 mmol/L (137-145)
[2017-01-17] MEDS: NORMAL SALINE 1000 ML 1,000 ML IV PRN ×3 (05:09→23:54)
[2017-01-17] MEDS: IMIPENEM/CILASTATIN SODIUM 500 MG in NORMAL SALINE 100 ML IV SCH ×4 (05:10→23:54)
[2017-01-17 05:29] LABS: CREATINE KINASE 19907 U/L (55-170)
[2017-01-17 05:31] LABS: ANION GAP 2 (5-19)
[2017-01-17 05:48] LABS: ARTERIAL BLOOD BASE EXCESS 2.3 mmol/L; ARTERIAL BLOOD O2 SATURATION 98.2 % (94-98)
[2017-01-17] MEDS ORDERED: POTASSI CL 20 MEQ/50 ML RIDER 50 ML IV ONE (07:32)
--- NOTE | 2017-01-17 07:51 | RADIOLOGY REPORT (SQ) ---
EXAM DESCRIPTION: CHEST SINGLE VIEW COMPLETED DATE/TIME: 01/17/2017 7:21 am REASON FOR STUDY: resp failure COMPARISON: 01/16/2017. EXAM PARAMETERS: NUMBER OF VIEWS: One view. TECHNIQUE: Single frontal radiographic view of the chest acquired. RADIATION DOSE: NA LIMITATIONS: None. FINDINGS: LUNGS AND PLEURA: Mild haziness- effusion of the left lung base. MEDIASTINUM AND HILAR STRUCTURES: No masses. Contour normal. HEART AND VASCULAR STRUCTURES: Heart normal in size. Normal vasculature. BONES: No acute findings. HARDWARE: Adequate appearing endotracheal tube and NG tube. OTHER: No other significant finding. IMPRESSION: Small left basilar opacity -effusion. TECHNICAL DOCUMENTATION: JOB ID: [id number]
[2017-01-17] MEDS: FUROSEMIDE INJ/PF 20 MG/2 ML SDV IV SCH ×2 (09:24→21:45)
[2017-01-17] MEDS: FAMOTIDINE INJ/PF 20 MG/2 ML SDV IV SCH ×2 (09:24→22:15)
[2017-01-17] MEDS: METHYLPREDNISOLONE INJ 40 MG/1 ML SDV IV SCH ×2 (09:24→22:15)
[2017-01-17] MEDS: CETIRIZINE 10 MG TABLET NG SCH (09:25)
[2017-01-17] MEDS: HEPARIN SOD (PORCINE) 5,000 UNIT/ML 1 ML SYRINGE SUBCUT SCH ×2 (09:26→22:15)
--- NOTE | 2017-01-17 12:49 | PDOC PROGRESS REPORT ---
Subjective Progress Note for:: 01/17/17 Subjective:: Patient is intubated and sedated. Physical Exam Vital Signs: Temp Pulse Resp BP Pulse Ox 97.9 F 53 L 18 150/88 H 100 01/17/17 08:00 01/17/17 10:00 01/17/17 12:02 01/17/17 12:02 01/17/17 12:02 Intake & Output 01/16/17 01/17/17 01/18/17 06:59 06:59 06:59 Intake Total 6299 5168 Output Total 5155 4750 250 Balance 1144 418 -250 Weight 86.6 kg 89.4 kg General appearance: PRESENT: no acute distress Eye exam: PRESENT: conjunctiva pink. ABSENT: scleral icterus Mouth exam: PRESENT: moist, tongue midline Neck exam: ABSENT: JVD Respiratory exam: PRESENT: clear to auscultation jesus. ABSENT: rales, rhonchi, wheezes Cardiovascular exam: PRESENT: RRR. ABSENT: diastolic murmur, rubs, systolic murmur GI/Abdominal exam: PRESENT: normal bowel sounds, soft. ABSENT: distended, guarding, mass, organolmegaly, rebound, tenderness Extremities exam: ABSENT: calf tenderness, clubbing, pedal edema Neurological exam: PRESENT: other - Intubated and sedated Psychiatric exam: PRESENT: other - Unable to assess Skin exam: PRESENT: dry, intact, warm. ABSENT: cyanosis, rash Results Laboratory Results: 01/17/17 04:13 01/17/17 04:13 01/16/17 01/17/17 01/17/17 13:25 04:13 04:13 WBC 12.9 H RBC 3.85 L Hgb 11.8 L Hct 33.7 L MCV 88 MCH 30.5 MCHC 34.9 RDW 13.3 Plt Count 149 L Seg Neutrophils % 81.0 H Lymphocytes % 10.8 L Monocytes % 8.0 Eosinophils % 0.1 Basophils % 0.1 Absolute Neutrophils 10.4 H Absolute Lymphocytes 1.4 Absolute Monocytes 1.0 Absolute Eosinophils 0.0 Absolute Basophils 0.0 Carbonic Acid 0.93 L HCO3/H2CO3 Ratio 27:1 ABG pH 7.53 H ABG pCO2 30.8 L ABG pO2 93.4 ABG HCO3 25.4 ABG O2 Saturation 97.9 ABG Base Excess 3.6 FiO2 25% Sodium 140.5 Potassium 3.4 L Chloride 111 H Carbon Dioxide 28 Anion Gap 2 L BUN 19 Creatinine 0.78 Est GFR ( Amer) > 60 Est GFR (Non-Af Amer) > 60 Glucose 105 Calcium 7.4 L Phosphorus 3.4 Magnesium 2.1 Total Bilirubin 0.4 AST 451 H ALT 218 H Alkaline Phosphatase 50 Total Protein 4.0 L Albumin 2.0 L 01/17/17 05:20 WBC RBC Hgb Hct MCV MCH MCHC RDW Plt Count Seg Neutrophils % Lymphocytes % Monocytes % Eosinophils % Basophils % Absolute Neutrophils Absolute Lymphocytes Absolute Monocytes Absolute Eosinophils Absolute Basophils Carbonic Acid 1.06 HCO3/H2CO3 Ratio 24:1 ABG pH 7.48 H ABG pCO2 35.2 ABG pO2 104.9 H ABG HCO3 25.6 ABG O2 Saturation 98.2 H ABG Base Excess 2.3 FiO2 30% Sodium Potassium Chloride Carbon Dioxide Anion Gap BUN Creatinine Est GFR ( Amer) Est GFR (Non-Af Amer) Glucose Calcium Phosphorus Magnesium Total Bilirubin AST ALT Alkaline Phosphatase Total Protein Albumin 01/13/17 01/13/17 01/13/17 04:25 08:33 12:35 Creatine Kinase 40635 H 18094 H 99543 H 01/13/17 01/13/17 01/14/17 16:05 20:15 01:10 Creatine Kinase 32129 H 93264 H 36375 H 01/14/17 01/15/17 01/16/17 06:12 04:15 04:05 Creatine Kinase 02951 H 31825 H 28298 H 01/17/17 04:13 Creatine Kinase 79632 H Impressions: Cervical Spine CT 01/12/17 00:00 IMPRESSION: NO ACUTE OR SIGNIFICANT FINDINGS IN THE CERVICAL SPINE. Head CT 01/12/17 00:00 IMPRESSION: NORMAL BRAIN CT WITHOUT CONTRAST. Shoulder X-Ray 01/14/17 06:00 IMPRESSION: NO RADIOGRAPHIC EVIDENCE OF ACUTE INJURY. The limitation. Venous Doppler Study 01/14/17 14:36 IMPRESSION: NO EVIDENCE DVT OR SVT IN THE RIGHT ARM. Chest X-Ray 01/17/17 06:00 IMPRESSION: Small left basilar opacity -effusion. Assessment & Plan - Diagnosis (1) Acute encephalopathy Is this a current diagnosis for this admission?: YesPlan: Likely secondary to alcohol intoxication. Continue to try to wean off the ventilator (2) Acute respiratory failure Qualifiers: Respiratory failure complication: unspecified whether with hypoxia or hypercapnia Qualified Code(s): J96.00 - Acute respiratory failure, unspecified whether with hypoxia or hypercapnia Is this a current diagnosis for this admission?: YesPlan: Currently on the ventilator. Pulmonary medicine is following. (3) Alcohol dependence Qualifiers: Substance use status: with intoxication Complication of substance- induced condition: with unspecified complication Qualified Code(s): F10.229 - Alcohol dependence with intoxication, unspecified Is this a current diagnosis for this admission?: YesPlan: Continue with benzodiazepines for alcohol withdrawal prevention (4) Elevated LFTs Is this a current diagnosis for this admission?: YesPlan: Secondary to alcohol ingestion. (5) Hypernatremia Is this a current diagnosis for this admission?: YesPlan: Resolved (6) Hypovolemic shock Is this a current diagnosis for this admission?: YesPlan: Resolved with IV fluids (7) Insect bites and stings Is this a current diagnosis for this admission?: YesPlan: Patient has several vesicles from the ant bite (8) Renal insufficiency Is this a current diagnosis for this admission?: YesPlan: Resolved (9) Rhabdomyolysis Qualifiers: Rhabdomyolysis type: non-traumatic Qualified Code(s): M62.82 - Rhabdomyolysis Is this a current diagnosis for this admission?: YesPlan: Continue with IV fluids. Creatinine kinase remains elevated. (10) Aspiration into airway Qualifiers: Encounter type: initial encounter Qualified Code(s): T17.908A - Unspecified foreign body in respiratory tract, part unspecified causing other injury, initial encounter Is this a current diagnosis for this admission?: YesPlan: Continue with imipenem - Time Time Spent with patient: 25-34 minutes - Inpatient Certification Medical Necessity: Need Close Monitoring Due to Risk of Patient Decompensation
[2017-01-17] MEDS ORDERED: MIDAZOLAM 2 MG/2 ML INJ IV PRN (13:16)
--- NOTE | 2017-01-17 13:22 | PDOC PROGRESS REPORT ---
Subjective Progress Note for:: 01/17/17 Subjective:: Intubated and sedated Physical Exam Vital Signs: Temp Pulse Resp BP Pulse Ox 97.9 F 53 L 18 150/88 H 100 01/17/17 08:00 01/17/17 10:00 01/17/17 12:02 01/17/17 12:02 01/17/17 12:02 Intake & Output 01/16/17 01/17/17 01/18/17 06:59 06:59 06:59 Intake Total 6299 5168 Output Total 5155 4750 250 Balance 1144 418 -250 Weight 86.6 kg 89.4 kg General appearance: PRESENT: no acute distress, disheveled, well-developed, well -nourished Head exam: PRESENT: atraumatic, normocephalic Eye exam: PRESENT: conjunctiva pale Mouth exam: PRESENT: dry mucosa, neck supple, tongue midline, other - ET tube in place Neck exam: ABSENT: carotid bruit, JVD, lymphadenopathy, thyromegaly Respiratory exam: PRESENT: decreased breath sounds, prolonged expiratory phas, rhonchi, symmetrical, unlabored Cardiovascular exam: PRESENT: RRR, +S1, +S2 Pulses: PRESENT: normal radial pulses GI/Abdominal exam: PRESENT: normal bowel sounds, soft. ABSENT: distended, guarding, mass, organolmegaly, rebound, tenderness Rectal exam: PRESENT: deferred Gentrourinary exam: PRESENT: indwelling catheter Musculoskeletal exam: PRESENT: normal inspection Skin exam: PRESENT: dry, warm Results Laboratory Results: 01/17/17 04:13 01/17/17 04:13 01/16/17 01/17/17 01/17/17 13:25 04:13 04:13 WBC 12.9 H RBC 3.85 L Hgb 11.8 L Hct 33.7 L MCV 88 MCH 30.5 MCHC 34.9 RDW 13.3 Plt Count 149 L Seg Neutrophils % 81.0 H Lymphocytes % 10.8 L Monocytes % 8.0 Eosinophils % 0.1 Basophils % 0.1 Absolute Neutrophils 10.4 H Absolute Lymphocytes 1.4 Absolute Monocytes 1.0 Absolute Eosinophils 0.0 Absolute Basophils 0.0 Carbonic Acid 0.93 L HCO3/H2CO3 Ratio 27:1 ABG pH 7.53 H ABG pCO2 30.8 L ABG pO2 93.4 ABG HCO3 25.4 ABG O2 Saturation 97.9 ABG Base Excess 3.6 FiO2 25% Sodium 140.5 Potassium 3.4 L Chloride 111 H Carbon Dioxide 28 Anion Gap 2 L BUN 19 Creatinine 0.78 Est GFR ( Amer) > 60 Est GFR (Non-Af Amer) > 60 Glucose 105 Calcium 7.4 L Phosphorus 3.4 Magnesium 2.1 Total Bilirubin 0.4 AST 451 H ALT 218 H Alkaline Phosphatase 50 Total Protein 4.0 L Albumin 2.0 L 01/17/17 05:20 WBC RBC Hgb Hct MCV MCH MCHC RDW Plt Count Seg Neutrophils % Lymphocytes % Monocytes % Eosinophils % Basophils % Absolute Neutrophils Absolute Lymphocytes Absolute Monocytes Absolute Eosinophils Absolute Basophils Carbonic Acid 1.06 HCO3/H2CO3 Ratio 24:1 ABG pH 7.48 H ABG pCO2 35.2 ABG pO2 104.9 H ABG HCO3 25.6 ABG O2 Saturation 98.2 H ABG Base Excess 2.3 FiO2 30% Sodium Potassium Chloride Carbon Dioxide Anion Gap BUN Creatinine Est GFR ( Amer) Est GFR (Non-Af Amer) Glucose Calcium Phosphorus Magnesium Total Bilirubin AST ALT Alkaline Phosphatase Total Protein Albumin 01/13/17 01/13/17 01/13/17 04:25 08:33 12:35 Creatine Kinase 97641 H 91663 H 16809 H 01/13/17 01/13/17 01/14/17 16:05 20:15 01:10 Creatine Kinase 55606 H 48714 H 31612 H 01/14/17 01/15/17 01/16/17 06:12 04:15 04:05 Creatine Kinase 86458 H 53552 H 45237 H 01/17/17 04:13 Creatine Kinase 70330 H Impressions: Cervical Spine CT 01/12/17 00:00 IMPRESSION: NO ACUTE OR SIGNIFICANT FINDINGS IN THE CERVICAL SPINE. Head CT 01/12/17 00:00 IMPRESSION: NORMAL BRAIN CT WITHOUT CONTRAST. Shoulder X-Ray 01/14/17 06:00 IMPRESSION: NO RADIOGRAPHIC EVIDENCE OF ACUTE INJURY. The limitation. Venous Doppler Study 01/14/17 14:36 IMPRESSION: NO EVIDENCE DVT OR SVT IN THE RIGHT ARM. Chest X-Ray 01/17/17 06:00 IMPRESSION: Small left basilar opacity -effusion. Assessment & Plan - Diagnosis (1) Alcohol dependence Qualifiers: Substance use status: with intoxication Complication of substance- induced condition: with unspecified complication Qualified Code(s): F10.229 - Alcohol dependence with intoxication, unspecified Is this a current diagnosis for this admission?: Yes (2) Alcohol intoxication Qualifiers: Complication of substance-induced condition: with unspecified complication Qualified Code(s): F10.929 - Alcohol use, unspecified with intoxication, unspecified Is this a current diagnosis for this admission?: Yes (3) Altered mental status Qualifiers: Altered mental status type: coma Coma depth: Malia coma 3-8 Coma timing: in the field (EMT or ambulance) Qualified Code(s): R40.2431 - [place] coma scale score 3-8, in the field [EMT or ambulance] Is this a current diagnosis for this admission?: YesPlan: Unable to arouse even off of propofol will discontinue Ativan Benadryl and Zyrtec .We will use versed short acting as needed is necessary (4) Dehydration Is this a current diagnosis for this admission?: No (5) Metabolic acidosis Is this a current diagnosis for this admission?: YesPlan: Rapidly improving (6) Rhabdomyolysis Qualifiers: Rhabdomyolysis type: non-traumatic Qualified Code(s): M62.82 - Rhabdomyolysis Is this a current diagnosis for this admission?: YesPlan: Slowly improving - Time Critical Time spent with patient: 35 or more minutes - Spoke with RN RT RN evaluated for possible extubation 55 min
[2017-01-17] MEDS: NORMAL SALINE 1000 ML 1,000 ML with THIAMINE HCL 100 MG, MVI, ADULT NO.1 WITH VIT K 10 ... IV SCH ×4 (18:24)
[2017-01-17] MEDS: IPRATROPIUM/ALBUTEROL 0.5-2.5 MG/3 ML AMPUL NEB PRN (21:02)
[2017-01-18] MEDS: PROPOFOL 100 ML IV PRN ×6 (02:31→22:32)
[2017-01-18 04:13] LABS: ABSOLUTE EOSINOPHILS # (AUTO) 0.1 10^3/uL (0.0-0.6); ABSOLUTE LYMPHOCYTES (AUTO) 1.8 10^3/uL (0.5-4.7); ABSOLUTE MONOCYTES (AUTO) 1.1 10^3/uL (0.1-1.4); ABSOLUTE NEUT (AUTO) 11.2 10^3/uL (1.7-8.2); BASOPHILS % (AUTO) 0.2 % (0-2); EOSINOPHILS % (AUTO) 0.9 % (0-6); HEMATOCRIT 32.5 % (37.9-51.0); HEMOGLOBIN 11.5 g/dL (13.5-17.0); LYMPHOCYTES % (AUTO) 12.8 % (13-45); MEAN CORPUSCULAR HEMOGLOBIN 30.4 pg (27.0-33.4); MEAN CORPUSCULAR HGB CONC 35.3 g/dL (32.0-36.0); MEAN CORPUSCULAR VOLUME 86 fl (80-97); MONOCYTES % (AUTO) 7.4 % (3-13); RED BLOOD COUNT 3.78 10^6/uL (4.35-5.55); RED CELL DISTRIBUTION WIDTH 13.2 % (11.5-14.0); SEGMENTED NEUTROPHILS % (AUTO) 78.7 % (42-78); WHITE BLOOD COUNT 14.3 10^3/uL (4.0-10.5)
[2017-01-18 04:26] LABS: BLOOD UREA NITROGEN 17 mg/dL (7-20); CALCIUM 7.6 mg/dL (8.4-10.2); CHLORIDE 110 mmol/L (98-107); CREATININE RESULT 0.79 mg/dL (0.52-1.25); GLUCOSE 92 mg/dL (75-110); POTASSIUM 3.2 mmol/L (3.6-5.0)
[2017-01-18 04:47] LABS: CARBON DIOXIDE 27 mmol/L (22-30); SODIUM 140.1 mmol/L (137-145)
[2017-01-18 04:54] LABS: ANION GAP 3 (5-19)
[2017-01-18] MEDS: IMIPENEM/CILASTATIN SODIUM 500 MG in NORMAL SALINE 100 ML IV SCH ×4 (06:01→23:53)
[2017-01-18] MEDS ORDERED: POTASSI CL 20 MEQ/50 ML RIDER 20 MEQ/50 ML RTUPB IV SCH (07:30)
[2017-01-18 08:26] LABS: ARTERIAL BLOOD BASE EXCESS 3.6 mmol/L; ARTERIAL BLOOD O2 SATURATION 97.5 % (94-98)
[2017-01-18] MEDS: NORMAL SALINE 1000 ML 1,000 ML IV PRN ×2 (09:07→18:42)
--- NOTE | 2017-01-18 09:23 | PDOC PROGRESS REPORT ---
Subjective Progress Note for:: 01/18/17 Subjective:: Patient is intubated and sedated. Physical Exam Vital Signs: Temp Pulse Resp BP Pulse Ox 99.7 F 75 21 H 144/86 H 98 01/18/17 07:52 01/18/17 07:52 01/18/17 07:52 01/18/17 07:52 01/18/17 08:51 Intake & Output 01/17/17 01/18/17 01/19/17 06:59 06:59 06:59 Intake Total 5168 4596 Output Total 4750 4125 200 Balance 418 471 -200 Weight 89.4 kg 87.5 kg General appearance: PRESENT: no acute distress Eye exam: PRESENT: conjunctiva pink. ABSENT: scleral icterus Mouth exam: PRESENT: moist, tongue midline Neck exam: ABSENT: JVD Respiratory exam: PRESENT: clear to auscultation jesus. ABSENT: rales, rhonchi, wheezes Cardiovascular exam: PRESENT: RRR. ABSENT: diastolic murmur, rubs, systolic murmur GI/Abdominal exam: PRESENT: normal bowel sounds, soft. ABSENT: distended, guarding, mass, organolmegaly, rebound, tenderness Extremities exam: PRESENT: other - Mild swelling of the right arm.. ABSENT: calf tenderness, clubbing, pedal edema Neurological exam: PRESENT: other - Intubated and sedated Psychiatric exam: PRESENT: appropriate affect Skin exam: PRESENT: other - Vesicles on the right arm from the ant bites Results Laboratory Results: 01/18/17 04:03 01/18/17 04:03 01/18/17 01/18/17 01/18/17 04:03 04:03 08:19 WBC 14.3 H RBC 3.78 L Hgb 11.5 L Hct 32.5 L MCV 86 MCH 30.4 MCHC 35.3 RDW 13.2 Plt Count 158 Seg Neutrophils % 78.7 H Lymphocytes % 12.8 L Monocytes % 7.4 Eosinophils % 0.9 Basophils % 0.2 Absolute Neutrophils 11.2 H Absolute Lymphocytes 1.8 Absolute Monocytes 1.1 Absolute Eosinophils 0.1 Absolute Basophils 0.0 Carbonic Acid 1.11 HCO3/H2CO3 Ratio 24:1 ABG pH 7.48 H ABG pCO2 36.9 ABG pO2 91.6 ABG HCO3 27.1 H ABG O2 Saturation 97.5 ABG Base Excess 3.6 FiO2 30% Sodium 140.1 Potassium 3.2 L Chloride 110 H Carbon Dioxide 27 Anion Gap 3 L BUN 17 Creatinine 0.79 Est GFR ( Amer) > 60 Est GFR (Non-Af Amer) > 60 Glucose 92 Calcium 7.6 L 01/13/17 01/13/17 01/13/17 04:25 08:33 12:35 Creatine Kinase 99639 H 81870 H 47194 H 01/13/17 01/13/17 01/14/17 16:05 20:15 01:10 Creatine Kinase 62292 H 75735 H 81644 H 01/14/17 01/15/17 01/16/17 06:12 04:15 04:05 Creatine Kinase 68677 H 63230 H 25763 H 01/17/17 04:13 Creatine Kinase 84525 H Impressions: Cervical Spine CT 01/12/17 00:00 IMPRESSION: NO ACUTE OR SIGNIFICANT FINDINGS IN THE CERVICAL SPINE. Head CT 01/12/17 00:00 IMPRESSION: NORMAL BRAIN CT WITHOUT CONTRAST. Shoulder X-Ray 01/14/17 06:00 IMPRESSION: NO RADIOGRAPHIC EVIDENCE OF ACUTE INJURY. The limitation. Venous Doppler Study 01/14/17 14:36 IMPRESSION: NO EVIDENCE DVT OR SVT IN THE RIGHT ARM. Chest X-Ray 01/17/17 06:00 IMPRESSION: Small left basilar opacity -effusion. Assessment & Plan - Diagnosis (1) Acute encephalopathy Is this a current diagnosis for this admission?: YesPlan: Likely secondary to alcohol intoxication. Continue to try to wean off the ventilator (2) Acute respiratory failure Qualifiers: Respiratory failure complication: unspecified whether with hypoxia or hypercapnia Qualified Code(s): J96.00 - Acute respiratory failure, unspecified whether with hypoxia or hypercapnia Is this a current diagnosis for this admission?: YesPlan: Currently on the ventilator. Pulmonary medicine is following. (3) Alcohol dependence Qualifiers: Substance use status: with intoxication Complication of substance- induced condition: with unspecified complication Qualified Code(s): F10.229 - Alcohol dependence with intoxication, unspecified Is this a current diagnosis for this admission?: YesPlan: Continue with benzodiazepines for alcohol withdrawal prevention (4) Elevated LFTs Is this a current diagnosis for this admission?: YesPlan: Secondary to alcohol ingestion. (5) Hypernatremia Is this a current diagnosis for this admission?: YesPlan: Resolved (6) Hypovolemic shock Is this a current diagnosis for this admission?: YesPlan: Resolved with IV fluids (7) Insect bites and stings Is this a current diagnosis for this admission?: YesPlan: Patient has several vesicles from the ant bite (8) Renal insufficiency Is this a current diagnosis for this admission?: YesPlan: Resolved (9) Rhabdomyolysis Qualifiers: Rhabdomyolysis type: non-traumatic Qualified Code(s): M62.82 - Rhabdomyolysis Is this a current diagnosis for this admission?: YesPlan: Continue with IV fluids. Creatinine kinase remains elevated. (10) Aspiration into airway Qualifiers: Encounter type: initial encounter Qualified Code(s): T17.908A - Unspecified foreign body in respiratory tract, part unspecified causing other injury, initial encounter Is this a current diagnosis for this admission?: YesPlan: Continue with imipenem (11) Hypokalemia Is this a current diagnosis for this admission?: YesPlan: Continue to replace and follow - Time Time Spent with patient: 25-34 minutes - Inpatient Certification Medical Necessity: Need Close Monitoring Due to Risk of Patient Decompensation
[2017-01-18] MEDS: FUROSEMIDE INJ/PF 20 MG/2 ML SDV IV SCH ×2 (10:20→21:15)
[2017-01-18] MEDS: FAMOTIDINE INJ/PF 20 MG/2 ML SDV IV SCH ×2 (10:20→21:20)
[2017-01-18] MEDS: METHYLPREDNISOLONE INJ 40 MG/1 ML SDV IV SCH ×2 (10:21→21:21)
[2017-01-18] MEDS: HEPARIN SOD (PORCINE) 5,000 UNIT/ML 1 ML SYRINGE SUBCUT SCH ×2 (10:23→21:20)
--- NOTE | 2017-01-18 11:18 | PDOC PROGRESS REPORT ---
Subjective Subjective:: Patient remains intubated and sedated. No changes overnight. Physical Exam Vital Signs: Temp Pulse Resp BP Pulse Ox 99.7 F 75 21 H 144/86 H 98 01/18/17 07:52 01/18/17 07:52 01/18/17 07:52 01/18/17 07:52 01/18/17 08:51 Intake & Output 01/17/17 01/18/17 01/19/17 06:59 06:59 06:59 Intake Total 5168 4596 Output Total 4750 4125 200 Balance 418 471 -200 Weight 89.4 kg 87.5 kg Musculoskeletal exam: PRESENT: other - Right upper extremity: Notable swelling along the hand and upper arm greatest along the shoulder. Previous blister resolving. Compartments are soft and compressible no sign of compartment syndrome. Unable to test neurologic status given patient is sedated. Radial pulse 2+. Results Laboratory Results: 01/18/17 04:03 01/18/17 04:03 01/18/17 01/18/17 01/18/17 04:03 04:03 08:19 WBC 14.3 H RBC 3.78 L Hgb 11.5 L Hct 32.5 L MCV 86 MCH 30.4 MCHC 35.3 RDW 13.2 Plt Count 158 Seg Neutrophils % 78.7 H Lymphocytes % 12.8 L Monocytes % 7.4 Eosinophils % 0.9 Basophils % 0.2 Absolute Neutrophils 11.2 H Absolute Lymphocytes 1.8 Absolute Monocytes 1.1 Absolute Eosinophils 0.1 Absolute Basophils 0.0 Carbonic Acid 1.11 HCO3/H2CO3 Ratio 24:1 ABG pH 7.48 H ABG pCO2 36.9 ABG pO2 91.6 ABG HCO3 27.1 H ABG O2 Saturation 97.5 ABG Base Excess 3.6 FiO2 30% Sodium 140.1 Potassium 3.2 L Chloride 110 H Carbon Dioxide 27 Anion Gap 3 L BUN 17 Creatinine 0.79 Est GFR ( Amer) > 60 Est GFR (Non-Af Amer) > 60 Glucose 92 Calcium 7.6 L 01/13/17 01/13/17 01/13/17 04:25 08:33 12:35 Creatine Kinase 49209 H 60645 H 69443 H 01/13/17 01/13/17 01/14/17 16:05 20:15 01:10 Creatine Kinase 50234 H 18583 H 53468 H 01/14/17 01/15/17 01/16/17 06:12 04:15 04:05 Creatine Kinase 69875 H 98944 H 92692 H 01/17/17 04:13 Creatine Kinase 01428 H Impressions: Cervical Spine CT 01/12/17 00:00 IMPRESSION: NO ACUTE OR SIGNIFICANT FINDINGS IN THE CERVICAL SPINE. Head CT 01/12/17 00:00 IMPRESSION: NORMAL BRAIN CT WITHOUT CONTRAST. Shoulder X-Ray 01/14/17 06:00 IMPRESSION: NO RADIOGRAPHIC EVIDENCE OF ACUTE INJURY. The limitation. Venous Doppler Study 01/14/17 14:36 IMPRESSION: NO EVIDENCE DVT OR SVT IN THE RIGHT ARM. Chest X-Ray 01/17/17 06:00 IMPRESSION: Small left basilar opacity -effusion. Assessment & Plan - Diagnosis (1) Rhabdomyolysis Qualifiers: Rhabdomyolysis type: non-traumatic Qualified Code(s): M62.82 - Rhabdomyolysis Is this a current diagnosis for this admission?: YesPlan: I have reviewed patient's shoulder radiographs which demonstrate no evidence of osseous abnormality. Continue to demonstrate soft tissue swelling. On examination he does have notable swelling of the right upper extremity exact cause is unknown however it is likely he passed out on the side which has resulted in rhabdomyolysis and swelling it is showing improvement. However missed compartment syndrome remains within the differential diagnosis once patient is no longer sedated or intubated further examination of the upper extremity can be done for evaluation.
[2017-01-18] MEDS: LORAZEPAM INJ 2 MG/1 ML VIAL IV PRN (14:18)
[2017-01-18] MEDS: NORMAL SALINE 1000 ML 1,000 ML with THIAMINE HCL 100 MG, MVI, ADULT NO.1 WITH VIT K 10 ... IV SCH ×4 (17:21)
[2017-01-18] MEDS ORDERED: POTASSIUM CHLORIDE 20 MEQ/50 ML RTU IV ONE (17:30)
--- NOTE | 2017-01-18 18:08 | PDOC PROGRESS REPORT ---
Subjective Progress Note for:: 01/18/17 Subjective:: Intubated and sedated,does not yet respond during sedation vacations Physical Exam Vital Signs: Temp Pulse Resp BP Pulse Ox 99.7 F 75 21 H 144/86 H 98 01/18/17 07:52 01/18/17 07:52 01/18/17 07:52 01/18/17 07:52 01/18/17 08:51 Intake & Output 01/17/17 01/18/17 01/19/17 06:59 06:59 06:59 Intake Total 5168 4596 Output Total 4750 4125 200 Balance 418 471 -200 Weight 89.4 kg 87.5 kg General appearance: PRESENT: no acute distress, disheveled, well-developed, well -nourished Head exam: PRESENT: atraumatic, normocephalic Eye exam: PRESENT: conjunctiva pale Mouth exam: PRESENT: dry mucosa, neck supple, tongue midline, other - ET tube in place Neck exam: ABSENT: carotid bruit, JVD, lymphadenopathy, thyromegaly Respiratory exam: PRESENT: decreased breath sounds, prolonged expiratory phas, rhonchi, unlabored Cardiovascular exam: PRESENT: RRR, +S1, +S2 Pulses: PRESENT: normal radial pulses GI/Abdominal exam: PRESENT: normal bowel sounds, soft. ABSENT: distended, guarding, mass, organolmegaly, rebound, tenderness Rectal exam: PRESENT: deferred Gentrourinary exam: PRESENT: indwelling catheter Musculoskeletal exam: PRESENT: normal inspection Skin exam: PRESENT: dry, warm Results Laboratory Results: 01/18/17 04:03 01/18/17 04:03 01/18/17 01/18/17 01/18/17 04:03 04:03 08:19 WBC 14.3 H RBC 3.78 L Hgb 11.5 L Hct 32.5 L MCV 86 MCH 30.4 MCHC 35.3 RDW 13.2 Plt Count 158 Seg Neutrophils % 78.7 H Lymphocytes % 12.8 L Monocytes % 7.4 Eosinophils % 0.9 Basophils % 0.2 Absolute Neutrophils 11.2 H Absolute Lymphocytes 1.8 Absolute Monocytes 1.1 Absolute Eosinophils 0.1 Absolute Basophils 0.0 Carbonic Acid 1.11 HCO3/H2CO3 Ratio 24:1 ABG pH 7.48 H ABG pCO2 36.9 ABG pO2 91.6 ABG HCO3 27.1 H ABG O2 Saturation 97.5 ABG Base Excess 3.6 FiO2 30% Sodium 140.1 Potassium 3.2 L Chloride 110 H Carbon Dioxide 27 Anion Gap 3 L BUN 17 Creatinine 0.79 Est GFR ( Amer) > 60 Est GFR (Non-Af Amer) > 60 Glucose 92 Calcium 7.6 L 01/13/17 01/13/17 01/13/17 04:25 08:33 12:35 Creatine Kinase 76515 H 03170 H 88619 H 01/13/17 01/13/17 01/14/17 16:05 20:15 01:10 Creatine Kinase 16745 H 35838 H 27478 H 01/14/17 01/15/17 01/16/17 06:12 04:15 04:05 Creatine Kinase 23450 H 63331 H 45988 H 01/17/17 04:13 Creatine Kinase 33563 H Impressions: Cervical Spine CT 01/12/17 00:00 IMPRESSION: NO ACUTE OR SIGNIFICANT FINDINGS IN THE CERVICAL SPINE. Head CT 01/12/17 00:00 IMPRESSION: NORMAL BRAIN CT WITHOUT CONTRAST. Shoulder X-Ray 01/14/17 06:00 IMPRESSION: NO RADIOGRAPHIC EVIDENCE OF ACUTE INJURY. The limitation. Venous Doppler Study 01/14/17 14:36 IMPRESSION: NO EVIDENCE DVT OR SVT IN THE RIGHT ARM. Chest X-Ray 01/17/17 06:00 IMPRESSION: Small left basilar opacity -effusion. Assessment & Plan - Diagnosis (1) Alcohol dependence Qualifiers: Substance use status: with intoxication Complication of substance- induced condition: with unspecified complication Qualified Code(s): F10.229 - Alcohol dependence with intoxication, unspecified Is this a current diagnosis for this admission?: Yes (2) Alcohol intoxication Qualifiers: Complication of substance-induced condition: with unspecified complication Qualified Code(s): F10.929 - Alcohol use, unspecified with intoxication , unspecified Is this a current diagnosis for this admission?: Yes (3) Altered mental status Qualifiers: Altered mental status type: coma Coma depth: [place] coma 3-8 Coma timing: in the field (EMT or ambulance) Qualified Code(s): R40.2431 - [place] coma scale score 3-8, in the field [EMT or ambulance] Is this a current diagnosis for this admission?: YesPlan: unable to arouse even during sedation vacation (4) Dehydration Is this a current diagnosis for this admission?: No (5) Metabolic acidosis Is this a current diagnosis for this admission?: Yes (6) Rhabdomyolysis Qualifiers: Rhabdomyolysis type: non-traumatic Qualified Code(s): M62.82 - Rhabdomyolysis Is this a current diagnosis for this admission?: Yes
[2017-01-18] MEDS: IPRATROPIUM/ALBUTEROL 0.5-2.5 MG/3 ML AMPUL NEB PRN (21:00)
[2017-01-18] MEDS: ACETAMINOPHEN 650 MG SUPP.RECT PR PRN (21:21)
[2017-01-19] MEDS: PROPOFOL 100 ML IV PRN ×3 (01:21→06:01)
[2017-01-19] MEDS: IMIPENEM/CILASTATIN SODIUM 500 MG in NORMAL SALINE 100 ML IV SCH ×4 (05:02→23:14)
[2017-01-19] MEDS: NORMAL SALINE 1000 ML 1,000 ML IV PRN ×2 (05:02→11:34)
[2017-01-19 05:04] LABS: ABSOLUTE BASOPHILS # (AUTO) 0.1 10^3/uL (0.0-0.2); ABSOLUTE EOSINOPHILS # (AUTO) 0.1 10^3/uL (0.0-0.6); ABSOLUTE LYMPHOCYTES (AUTO) 1.5 10^3/uL (0.5-4.7); ABSOLUTE MONOCYTES (AUTO) 1.3 10^3/uL (0.1-1.4); ABSOLUTE NEUT (AUTO) 13.9 10^3/uL (1.7-8.2); ARTERIAL BLOOD BASE EXCESS 5.1 mmol/L; ARTERIAL BLOOD O2 SATURATION 97.4 % (94-98); BASOPHILS % (AUTO) 0.3 % (0-2); EOSINOPHILS % (AUTO) 0.5 % (0-6); HEMATOCRIT 31.4 % (37.9-51.0); HEMOGLOBIN 10.9 g/dL (13.5-17.0); HGB HCT DIFFERENCE 1.3; LYMPHOCYTES % (AUTO) 8.9 % (13-45); MEAN CORPUSCULAR HEMOGLOBIN 30.4 pg (27.0-33.4); MEAN CORPUSCULAR HGB CONC 34.8 g/dL (32.0-36.0); MEAN CORPUSCULAR VOLUME 87 fl (80-97); MONOCYTES % (AUTO) 7.5 % (3-13); RED BLOOD COUNT 3.59 10^6/uL (4.35-5.55); RED CELL DISTRIBUTION WIDTH 13.2 % (11.5-14.0); SEGMENTED NEUTROPHILS % (AUTO) 82.8 % (42-78); WHITE BLOOD COUNT 16.8 10^3/uL (4.0-10.5)
[2017-01-19 05:23] LABS: BLOOD UREA NITROGEN 17 mg/dL (7-20); CALCIUM 7.6 mg/dL (8.4-10.2); CREATININE RESULT 0.76 mg/dL (0.52-1.25); GLUCOSE 105 mg/dL (75-110); MAGNESIUM 2.1 mg/dL (1.6-2.3); POTASSIUM 3.4 mmol/L (3.6-5.0)
[2017-01-19 05:51] LABS: CARBON DIOXIDE 31 mmol/L (22-30); CHLORIDE 107 mmol/L (98-107); SODIUM 141.4 mmol/L (137-145)
[2017-01-19 05:55] LABS: ANION GAP 3 (5-19)
[2017-01-19 06:08] LABS: CREATINE KINASE 13144 U/L (55-170)
--- NOTE | 2017-01-19 07:38 | RADIOLOGY REPORT (SQ) ---
EXAM DESCRIPTION: CHEST SINGLE VIEW COMPLETED DATE/TIME: 01/19/2017 7:07 am REASON FOR STUDY: resp failure COMPARISON: Chest x-ray 01/17/2017. EXAM PARAMETERS: NUMBER OF VIEWS: One view TECHNIQUE: Single frontal radiograph of the chest. RADIATION DOSE: N/A LIMITATIONS: Patient positioning. FINDINGS: TEMPORARY SUPPORT DEVICES:ETT in expected location. NG tube courses below the left jennifer-d iaphragm in to the stomach. LUNGS AND PLEURA: The patient is rotated. Ground-glass opacities are seen at the bilateral lung base s. There is blunting of the costophrenic angle suggestive of small pleural effusions. No pneumothor ax. MEDIASTINUM AND HILAR STRUCTURES: No obvious masses. HEART AND VASCULAR STRUCTURES: The heart is not enlarged. No overt vascular congestion. BONES: No acute findings. IMPRESSION: Small bilateral pleural effusions and bibasilar ground-glass opacities, may represent at electasis or pneumonia. TECHNICAL DOCUMENTATION: JOB ID: [id number] 2010 [employer]- All Rights Reserved
--- NOTE | 2017-01-19 08:49 | PDOC PROGRESS REPORT ---
Subjective Progress Note for:: 01/19/17 Subjective:: Patient is intubated and sedated. Physical Exam Vital Signs: Temp Pulse Resp BP Pulse Ox 99.7 F 78 15 136/96 H 99 01/18/17 17:55 01/18/17 22:00 01/19/17 06:03 01/19/17 06:03 01/19/17 06:03 Intake & Output 01/18/17 01/19/17 01/20/17 06:59 06:59 06:59 Intake Total 4558 3764 Output Total 4122 1255 Balance 471 -1291 Weight 87.5 kg 86.2 kg General appearance: PRESENT: no acute distress Eye exam: PRESENT: conjunctiva pink. ABSENT: scleral icterus Mouth exam: PRESENT: moist, tongue midline Neck exam: ABSENT: JVD Respiratory exam: PRESENT: clear to auscultation jesus. ABSENT: rales, rhonchi, wheezes Cardiovascular exam: PRESENT: RRR. ABSENT: diastolic murmur, rubs, systolic murmur GI/Abdominal exam: PRESENT: normal bowel sounds, soft. ABSENT: distended, guarding, mass, organolmegaly, rebound, tenderness Extremities exam: PRESENT: pedal edema - Trace pedal edema., other - Shows swelling but it is soft.. ABSENT: calf tenderness, clubbing Neurological exam: PRESENT: other - Intubated and sedated Psychiatric exam: PRESENT: other - Unable to assess Skin exam: PRESENT: other - The large vesicle on the right lateral arm has opened up Results Laboratory Results: 01/19/17 04:50 01/19/17 04:50 01/19/17 01/19/17 01/19/17 04:50 04:50 04:50 WBC 16.8 H RBC 3.59 L Hgb 10.9 L Hct 31.4 L MCV 87 MCH 30.4 MCHC 34.8 RDW 13.2 Plt Count 191 Seg Neutrophils % 82.8 H Lymphocytes % 8.9 L Monocytes % 7.5 Eosinophils % 0.5 Basophils % 0.3 Absolute Neutrophils 13.9 H Absolute Lymphocytes 1.5 Absolute Monocytes 1.3 Absolute Eosinophils 0.1 Absolute Basophils 0.1 Carbonic Acid HCO3/H2CO3 Ratio ABG pH ABG pCO2 ABG pO2 ABG HCO3 ABG O2 Saturation ABG Base Excess FiO2 Sodium 141.4 Potassium 3.4 L Chloride 107 Carbon Dioxide 31 H Anion Gap 3 L BUN 17 Creatinine 0.76 Est GFR ( Amer) > 60 Est GFR (Non-Af Amer) > 60 Glucose 105 Calcium 7.6 L Magnesium 2.1 Ammonia 17.2 01/19/17 04:50 WBC RBC Hgb Hct MCV MCH MCHC RDW Plt Count Seg Neutrophils % Lymphocytes % Monocytes % Eosinophils % Basophils % Absolute Neutrophils Absolute Lymphocytes Absolute Monocytes Absolute Eosinophils Absolute Basophils Carbonic Acid 1.20 HCO3/H2CO3 Ratio 24:1 ABG pH 7.48 H ABG pCO2 39.9 ABG pO2 90.6 ABG HCO3 29.0 H ABG O2 Saturation 97.4 ABG Base Excess 5.1 FiO2 30% Sodium Potassium Chloride Carbon Dioxide Anion Gap BUN Creatinine Est GFR ( Amer) Est GFR (Non-Af Amer) Glucose Calcium Magnesium Ammonia 01/13/17 01/13/17 01/13/17 04:25 08:33 12:35 Creatine Kinase 29208 H 19527 H 98685 H 01/13/17 01/13/17 01/14/17 16:05 20:15 01:10 Creatine Kinase 11108 H 11747 H 26209 H 01/14/17 01/15/17 01/16/17 06:12 04:15 04:05 Creatine Kinase 05166 H 28002 H 88163 H 01/17/17 01/19/17 04:13 04:50 Creatine Kinase 75161 H 30056 H Impressions: Cervical Spine CT 01/12/17 00:00 IMPRESSION: NO ACUTE OR SIGNIFICANT FINDINGS IN THE CERVICAL SPINE. Head CT 01/12/17 00:00 IMPRESSION: NORMAL BRAIN CT WITHOUT CONTRAST. Shoulder X-Ray 01/14/17 06:00 IMPRESSION: NO RADIOGRAPHIC EVIDENCE OF ACUTE INJURY. The limitation. Venous Doppler Study 01/14/17 14:36 IMPRESSION: NO EVIDENCE DVT OR SVT IN THE RIGHT ARM. Chest X-Ray 01/19/17 06:00 IMPRESSION: Small bilateral pleural effusions and bibasilar ground-glass opacities, may represent atelectasis or pneumonia. Assessment & Plan - Diagnosis (1) Acute encephalopathy Is this a current diagnosis for this admission?: YesPlan: Likely secondary to alcohol intoxication. Continue to try to wean off the ventilator (2) Acute respiratory failure Qualifiers: Respiratory failure complication: unspecified whether with hypoxia or hypercapnia Qualified Code(s): J96.00 - Acute respiratory failure, unspecified whether with hypoxia or hypercapnia Is this a current diagnosis for this admission?: YesPlan: Currently on the ventilator. Pulmonary medicine is following. (3) Alcohol dependence Qualifiers: Substance use status: with intoxication Complication of substance- induced condition: with unspecified complication Qualified Code(s): F10.229 - Alcohol dependence with intoxication, unspecified Is this a current diagnosis for this admission?: YesPlan: Continue with benzodiazepines as needed for alcohol withdrawal prevention (4) Elevated LFTs Is this a current diagnosis for this admission?: YesPlan: Secondary to alcohol ingestion. (5) Hypernatremia Is this a current diagnosis for this admission?: YesPlan: Resolved (6) Hypovolemic shock Is this a current diagnosis for this admission?: YesPlan: Resolved with IV fluids (7) Insect bites and stings Is this a current diagnosis for this admission?: YesPlan: Patient has several vesicles that have opened up (8) Renal insufficiency Is this a current diagnosis for this admission?: YesPlan: Resolved (9) Rhabdomyolysis Qualifiers: Rhabdomyolysis type: non-traumatic Qualified Code(s): M62.82 - Rhabdomyolysis Is this a current diagnosis for this admission?: YesPlan: Continue with IV fluids. Creatinine kinase continues to decrease. The right arm is soft. There was concern that this may have represented missed compartment syndrome given that he was found down after an uncertain amount of time. This area on his right arm is soft. Patient has been evaluated by orthopedic surgery. (10) Aspiration into airway Qualifiers: Encounter type: initial encounter Qualified Code(s): T17.908A - Unspecified foreign body in respiratory tract, part unspecified causing other injury, initial encounter Is this a current diagnosis for this admission?: YesPlan: Continue with imipenem (11) Hypokalemia Is this a current diagnosis for this admission?: YesPlan: Continue to replace and follow - Time Time Spent with patient: 25-34 minutes - Inpatient Certification Medical Necessity: Need Close Monitoring Due to Risk of Patient Decompensation, Need For IV Fluids, Need for IV Antibiotics
[2017-01-19] MEDS: POTASSI CL 20 MEQ/50 ML RIDER 20 MEQ/50 ML RTUPB IV SCH ×2 (09:39→11:27)
[2017-01-19] MEDS: METHYLPREDNISOLONE INJ 40 MG/1 ML SDV IV SCH ×2 (09:41→21:13)
[2017-01-19] MEDS: FAMOTIDINE INJ/PF 20 MG/2 ML SDV IV SCH ×2 (09:42→21:13)
[2017-01-19] MEDS: FUROSEMIDE INJ/PF 20 MG/2 ML SDV IV SCH ×2 (09:42→21:13)
[2017-01-19] MEDS: HEPARIN SOD (PORCINE) 5,000 UNIT/ML 1 ML SYRINGE SUBCUT SCH ×2 (09:43→21:15)
--- NOTE | 2017-01-19 16:42 | PDOC PROGRESS REPORT ---
Subjective Progress Note for:: 01/19/17 Subjective:: awake alert extubate Physical Exam Vital Signs: Temp Pulse Resp BP Pulse Ox 99.7 F 71 11 L 147/96 H 92 01/18/17 17:55 01/19/17 09:24 01/19/17 10:30 01/19/17 10:03 01/19/17 10:30 Intake & Output 01/18/17 01/19/17 01/20/17 06:59 06:59 06:59 Intake Total 4579 3764 Output Total 4123 5055 400 Balance 471 -1291 -400 Weight 87.5 kg 86.2 kg General appearance: PRESENT: no acute distress, disheveled, well-developed, well -nourished Head exam: PRESENT: atraumatic, normocephalic Eye exam: PRESENT: conjunctiva pale, EOMI Mouth exam: PRESENT: dry mucosa, neck supple, other - ET tuube Neck exam: ABSENT: carotid bruit, JVD, lymphadenopathy, thyromegaly Respiratory exam: PRESENT: decreased breath sounds, prolonged expiratory phas, rhonchi, symmetrical, unlabored Cardiovascular exam: PRESENT: RRR, +S1, +S2 Pulses: PRESENT: normal radial pulses GI/Abdominal exam: PRESENT: normal bowel sounds, soft. ABSENT: distended, guarding, mass, organolmegaly, rebound, tenderness Rectal exam: PRESENT: deferred Gentrourinary exam: PRESENT: indwelling catheter Neurological exam: PRESENT: awake Psychiatric exam: PRESENT: flat affect Skin exam: PRESENT: dry, warm Results Laboratory Results: 01/19/17 04:50 01/19/17 04:50 01/19/17 01/19/17 01/19/17 04:50 04:50 04:50 WBC 16.8 H RBC 3.59 L Hgb 10.9 L Hct 31.4 L MCV 87 MCH 30.4 MCHC 34.8 RDW 13.2 Plt Count 191 Seg Neutrophils % 82.8 H Lymphocytes % 8.9 L Monocytes % 7.5 Eosinophils % 0.5 Basophils % 0.3 Absolute Neutrophils 13.9 H Absolute Lymphocytes 1.5 Absolute Monocytes 1.3 Absolute Eosinophils 0.1 Absolute Basophils 0.1 Carbonic Acid HCO3/H2CO3 Ratio ABG pH ABG pCO2 ABG pO2 ABG HCO3 ABG O2 Saturation ABG Base Excess FiO2 Sodium 141.4 Potassium 3.4 L Chloride 107 Carbon Dioxide 31 H Anion Gap 3 L BUN 17 Creatinine 0.76 Est GFR ( Amer) > 60 Est GFR (Non-Af Amer) > 60 Glucose 105 Calcium 7.6 L Magnesium 2.1 Ammonia 17.2 01/19/17 04:50 WBC RBC Hgb Hct MCV MCH MCHC RDW Plt Count Seg Neutrophils % Lymphocytes % Monocytes % Eosinophils % Basophils % Absolute Neutrophils Absolute Lymphocytes Absolute Monocytes Absolute Eosinophils Absolute Basophils Carbonic Acid 1.20 HCO3/H2CO3 Ratio 24:1 ABG pH 7.48 H ABG pCO2 39.9 ABG pO2 90.6 ABG HCO3 29.0 H ABG O2 Saturation 97.4 ABG Base Excess 5.1 FiO2 30% Sodium Potassium Chloride Carbon Dioxide Anion Gap BUN Creatinine Est GFR ( Amer) Est GFR (Non-Af Amer) Glucose Calcium Magnesium Ammonia 01/13/17 01/13/17 01/13/17 04:25 08:33 12:35 Creatine Kinase 39140 H 04480 H 69060 H 01/13/17 01/13/17 01/14/17 16:05 20:15 01:10 Creatine Kinase 56815 H 20385 H 87621 H 01/14/17 01/15/17 01/16/17 06:12 04:15 04:05 Creatine Kinase 99832 H 78573 H 01353 H 01/17/17 01/19/17 04:13 04:50 Creatine Kinase 76420 H 36923 H Impressions: Cervical Spine CT 01/12/17 00:00 IMPRESSION: NO ACUTE OR SIGNIFICANT FINDINGS IN THE CERVICAL SPINE. Head CT 01/12/17 00:00 IMPRESSION: NORMAL BRAIN CT WITHOUT CONTRAST. Shoulder X-Ray 01/14/17 06:00 IMPRESSION: NO RADIOGRAPHIC EVIDENCE OF ACUTE INJURY. The limitation. Venous Doppler Study 01/14/17 14:36 IMPRESSION: NO EVIDENCE DVT OR SVT IN THE RIGHT ARM. Chest X-Ray 01/19/17 06:00 IMPRESSION: Small bilateral pleural effusions and bibasilar ground-glass opacities, may represent atelectasis or pneumonia. Assessment & Plan - Diagnosis (1) Alcohol dependence Qualifiers: Substance use status: with intoxication Complication of substance- induced condition: with unspecified complication Qualified Code(s): F10.229 - Alcohol dependence with intoxication, unspecified Is this a current diagnosis for this admission?: Yes (2) Alcohol intoxication Qualifiers: Complication of substance-induced condition: with unspecified complication Qualified Code(s): F10.929 - Alcohol use, unspecified with intoxication , unspecified Is this a current diagnosis for this admission?: Yes (3) Altered mental status Qualifiers: Altered mental status type: coma Coma depth: Malia coma 3-8 Coma timing: in the field (EMT or ambulance) Qualified Code(s): R40.2431 - [place] coma scale score 3-8, in the field [EMT or ambulance] Is this a current diagnosis for this admission?: YesPlan: lethargic but awake and responsive (4) Dehydration Is this a current diagnosis for this admission?: No (5) Metabolic acidosis Is this a current diagnosis for this admission?: No (6) Rhabdomyolysis Qualifiers: Rhabdomyolysis type: non-traumatic Qualified Code(s): M62.82 - Rhabdomyolysis Is this a current diagnosis for this admission?: YesPlan: enzymes continue to decline - Time Critical Time spent with patient: 35 or more minutes - 55 min extubation
[2017-01-19] MEDS: NORMAL SALINE 1000 ML 1,000 ML with THIAMINE HCL 100 MG, MVI, ADULT NO.1 WITH VIT K 10 ... IV SCH ×4 (17:02)
[2017-01-19] MEDS: LORAZEPAM INJ 2 MG/1 ML VIAL IV PRN (21:13)
[2017-01-20 04:05] LABS: ABSOLUTE BASOPHILS # (AUTO) 0.1 10^3/uL (0.0-0.2); ABSOLUTE LYMPHOCYTES (AUTO) 1.4 10^3/uL (0.5-4.7); ABSOLUTE MONOCYTES (AUTO) 1.3 10^3/uL (0.1-1.4); ABSOLUTE NEUT (AUTO) 14.6 10^3/uL (1.7-8.2); BASOPHILS % (AUTO) 0.4 % (0-2); EOSINOPHILS % (AUTO) 0.1 % (0-6); HEMATOCRIT 34.5 % (37.9-51.0); HEMOGLOBIN 11.9 g/dL (13.5-17.0); HGB HCT DIFFERENCE 1.2; MEAN CORPUSCULAR HEMOGLOBIN 30.2 pg (27.0-33.4); MEAN CORPUSCULAR HGB CONC 34.6 g/dL (32.0-36.0); MEAN CORPUSCULAR VOLUME 87 fl (80-97); MONOCYTES % (AUTO) 7.6 % (3-13); RED BLOOD COUNT 3.96 10^6/uL (4.35-5.55); RED CELL DISTRIBUTION WIDTH 12.8 % (11.5-14.0); SEGMENTED NEUTROPHILS % (AUTO) 83.9 % (42-78); WHITE BLOOD COUNT 17.4 10^3/uL (4.0-10.5)
[2017-01-20 04:23] LABS: ANION GAP 5 (5-19); BLOOD UREA NITROGEN 22 mg/dL (7-20); CALCIUM 8.1 mg/dL (8.4-10.2); CARBON DIOXIDE 29 mmol/L (22-30); CHLORIDE 107 mmol/L (98-107); CREATININE RESULT 0.71 mg/dL (0.52-1.25); GLUCOSE 92 mg/dL (75-110); MAGNESIUM 2.1 mg/dL (1.6-2.3); POTASSIUM 3.5 mmol/L (3.6-5.0); SODIUM 141.1 mmol/L (137-145)
[2017-01-20 04:31] LABS: ARTERIAL BLOOD BASE EXCESS 6.3 mmol/L; ARTERIAL BLOOD O2 SATURATION 95.3 % (94-98)
[2017-01-20 04:48] LABS: CREATINE KINASE 10422 U/L (55-170)
[2017-01-20] MEDS: IMIPENEM/CILASTATIN SODIUM 500 MG in NORMAL SALINE 100 ML IV SCH ×3 (05:01→17:41)
--- NOTE | 2017-01-20 07:39 | RADIOLOGY REPORT (SQ) ---
EXAM DESCRIPTION: CHEST SINGLE VIEW COMPLETED DATE/TIME: 01/20/2017 6:59 am REASON FOR STUDY: resp failure COMPARISON: 01/19/2017. EXAM PARAMETERS: NUMBER OF VIEWS: One view. TECHNIQUE: Single frontal radiographic view of the chest acquired. RADIATION DOSE: NA LIMITATIONS: None. FINDINGS: LUNGS AND PLEURA: Mild residual haziness -congestion of bilateral lower lobes. MEDIASTINUM AND HILAR STRUCTURES: No masses. Contour normal. HEART AND VASCULAR STRUCTURES: Heart normal in size. Normal vasculature. BONES: No acute findings. HARDWARE: None in the chest. OTHER: No other significant finding. IMPRESSION: Mild residual haziness -congestion of bilateral lower lobes. Some interval improvement. TECHNICAL DOCUMENTATION: JOB ID: [id number]
--- NOTE | 2017-01-20 10:42 | PDOC PROGRESS REPORT ---
Subjective Progress Note for:: 01/20/17 Subjective:: Was extubated yesterday. Complains of having difficulty moving his right leg now. Physical Exam Vital Signs: Temp Pulse Resp BP Pulse Ox 98.8 F 92 28 H 147/87 H 100 01/20/17 07:33 01/20/17 07:33 01/20/17 07:33 01/20/17 07:33 01/20/17 08:30 Intake & Output 01/19/17 01/20/17 01/21/17 06:59 06:59 06:59 Intake Total 3767 4604 Output Total 5055 4675 175 Balance -1291 -71 -175 Weight 86.2 kg 85.1 kg General appearance: PRESENT: no acute distress Eye exam: PRESENT: conjunctiva pink. ABSENT: scleral icterus Mouth exam: PRESENT: moist, tongue midline Neck exam: ABSENT: carotid bruit, JVD, lymphadenopathy, thyromegaly Respiratory exam: PRESENT: clear to auscultation jesus. ABSENT: rales, rhonchi, wheezes Cardiovascular exam: PRESENT: RRR. ABSENT: diastolic murmur, rubs, systolic murmur GI/Abdominal exam: PRESENT: normal bowel sounds, soft. ABSENT: distended, guarding, mass, organolmegaly, rebound, tenderness Extremities exam: ABSENT: calf tenderness, clubbing, pedal edema Neurological exam: PRESENT: alert, awake, oriented to person, oriented to place , oriented to situation, other - Decreased light touch in the right leg. Strength is 4 out of 5 on the right leg.. ABSENT: oriented to time Psychiatric exam: PRESENT: anxious Results Laboratory Results: 01/20/17 03:57 01/20/17 03:57 01/20/17 01/20/17 01/20/17 03:57 03:57 04:03 WBC 17.4 H RBC 3.96 L Hgb 11.9 L Hct 34.5 L MCV 87 MCH 30.2 MCHC 34.6 RDW 12.8 Plt Count 275 Seg Neutrophils % 83.9 H Lymphocytes % 8.0 L Monocytes % 7.6 Eosinophils % 0.1 Basophils % 0.4 Absolute Neutrophils 14.6 H Absolute Lymphocytes 1.4 Absolute Monocytes 1.3 Absolute Eosinophils 0.0 Absolute Basophils 0.1 Carbonic Acid 1.04 L HCO3/H2CO3 Ratio 27:1 ABG pH 7.54 H ABG pCO2 34.7 L ABG pO2 66.7 L ABG HCO3 28.9 H ABG O2 Saturation 95.3 ABG Base Excess 6.3 FiO2 ROOM AIR Sodium 141.1 Potassium 3.5 L Chloride 107 Carbon Dioxide 29 Anion Gap 5 BUN 22 H Creatinine 0.71 Est GFR ( Amer) > 60 Est GFR (Non-Af Amer) > 60 Glucose 92 Calcium 8.1 L Magnesium 2.1 01/13/17 01/13/17 01/13/17 04:25 08:33 12:35 Creatine Kinase 85965 H 20922 H 20316 H 01/13/17 01/13/17 01/14/17 16:05 20:15 01:10 Creatine Kinase 74834 H 63765 H 61955 H 01/14/17 01/15/17 01/16/17 06:12 04:15 04:05 Creatine Kinase 75092 H 31561 H 74527 H 01/17/17 01/19/17 01/20/17 04:13 04:50 03:57 Creatine Kinase 05097 H 51746 H 09816 H Impressions: Cervical Spine CT 01/12/17 00:00 IMPRESSION: NO ACUTE OR SIGNIFICANT FINDINGS IN THE CERVICAL SPINE. Head CT 01/12/17 00:00 IMPRESSION: NORMAL BRAIN CT WITHOUT CONTRAST. Shoulder X-Ray 01/14/17 06:00 IMPRESSION: NO RADIOGRAPHIC EVIDENCE OF ACUTE INJURY. The limitation. Venous Doppler Study 01/14/17 14:36 IMPRESSION: NO EVIDENCE DVT OR SVT IN THE RIGHT ARM. Chest X-Ray 01/20/17 06:00 IMPRESSION: Mild residual haziness -congestion of bilateral lower lobes. Some interval improvement. Assessment & Plan - Diagnosis (1) Acute encephalopathy Is this a current diagnosis for this admission?: YesPlan: Likely secondary to alcohol intoxication. Patient was extubated yesterday. He is more alert but is slightly confused about the month and day. (2) Acute respiratory failure Qualifiers: Respiratory failure complication: unspecified whether with hypoxia or hypercapnia Qualified Code(s): J96.00 - Acute respiratory failure, unspecified whether with hypoxia or hypercapnia Is this a current diagnosis for this admission?: YesPlan: resolved. (3) Alcohol dependence Qualifiers: Substance use status: with intoxication Complication of substance- induced condition: with unspecified complication Qualified Code(s): F10.229 - Alcohol dependence with intoxication, unspecified Is this a current diagnosis for this admission?: YesPlan: Continue with benzodiazepines as needed for alcohol withdrawal prevention (4) Elevated LFTs Is this a current diagnosis for this admission?: YesPlan: Secondary to alcohol ingestion. (5) Hypernatremia Is this a current diagnosis for this admission?: YesPlan: Resolved (6) Hypovolemic shock Is this a current diagnosis for this admission?: YesPlan: Resolved with IV fluids (7) Insect bites and stings Is this a current diagnosis for this admission?: YesPlan: Patient has several vesicles that have opened up (8) Renal insufficiency Is this a current diagnosis for this admission?: YesPlan: Resolved (9) Rhabdomyolysis Qualifiers: Rhabdomyolysis type: non-traumatic Qualified Code(s): M62.82 - Rhabdomyolysis Is this a current diagnosis for this admission?: YesPlan: Continue with IV fluids. Creatinine kinase continues to decrease. The right arm is soft. There was concern that this may have represented missed compartment syndrome given that he was found down after an uncertain amount of time. This area on his right arm is soft. Patient has been evaluated by orthopedic surgery. However does now complain of right leg weakness and numbness. I have asked orthopedic to evaluate the patient today. Dr. Lou graciously agrees to do so (10) Aspiration into airway Qualifiers: Encounter type: initial encounter Qualified Code(s): T17.908A - Unspecified foreign body in respiratory tract, part unspecified causing other injury, initial encounter Is this a current diagnosis for this admission?: YesPlan: Continue with imipenem (11) Hypokalemia Is this a current diagnosis for this admission?: YesPlan: Continue to replace and follow - Time Time Spent with patient: 25-34 minutes - Inpatient Certification Medical Necessity: Need Close Monitoring Due to Risk of Patient Decompensation, Need For IV Fluids, Need for IV Antibiotics - Plan Summary Plan Summary: Improved and we will transfer out of the intensive care unit to the floor.
--- NOTE | 2017-01-20 10:59 | PDOC PROGRESS REPORT ---
Subjective Progress Note for:: 01/20/17 Subjective:: awake Affect very flat 24 hours status post extubation stable Physical Exam Vital Signs: Temp Pulse Resp BP Pulse Ox 98.8 F 92 28 H 147/87 H 97 01/20/17 07:33 01/20/17 07:33 01/20/17 07:33 01/20/17 07:33 01/20/17 07:33 Intake & Output 01/19/17 01/20/17 01/21/17 06:59 06:59 06:59 Intake Total 3769 4607 Output Total 3675 4675 175 Balance -1291 -71 -175 Weight 86.2 kg 85.1 kg General appearance: PRESENT: no acute distress, cooperative, disheveled, well- developed, well-nourished Head exam: PRESENT: atraumatic, normocephalic Eye exam: PRESENT: conjunctiva pale, EOMI Mouth exam: PRESENT: dry mucosa, neck supple Neck exam: ABSENT: carotid bruit, JVD, lymphadenopathy, thyromegaly Respiratory exam: PRESENT: decreased breath sounds, prolonged expiratory phas, rhonchi, symmetrical, unlabored Cardiovascular exam: PRESENT: RRR, +S1, +S2 Pulses: PRESENT: normal radial pulses GI/Abdominal exam: PRESENT: normal bowel sounds, soft. ABSENT: distended, guarding, mass, organolmegaly, rebound, tenderness Rectal exam: PRESENT: deferred Gentrourinary exam: PRESENT: indwelling catheter Musculoskeletal exam: PRESENT: normal inspection Neurological exam: PRESENT: awake Psychiatric exam: PRESENT: flat affect Skin exam: PRESENT: dry, warm Results Laboratory Results: 01/20/17 03:57 01/20/17 03:57 01/20/17 01/20/17 01/20/17 03:57 03:57 04:03 WBC 17.4 H RBC 3.96 L Hgb 11.9 L Hct 34.5 L MCV 87 MCH 30.2 MCHC 34.6 RDW 12.8 Plt Count 275 Seg Neutrophils % 83.9 H Lymphocytes % 8.0 L Monocytes % 7.6 Eosinophils % 0.1 Basophils % 0.4 Absolute Neutrophils 14.6 H Absolute Lymphocytes 1.4 Absolute Monocytes 1.3 Absolute Eosinophils 0.0 Absolute Basophils 0.1 Carbonic Acid 1.04 L HCO3/H2CO3 Ratio 27:1 ABG pH 7.54 H ABG pCO2 34.7 L ABG pO2 66.7 L ABG HCO3 28.9 H ABG O2 Saturation 95.3 ABG Base Excess 6.3 FiO2 ROOM AIR Sodium 141.1 Potassium 3.5 L Chloride 107 Carbon Dioxide 29 Anion Gap 5 BUN 22 H Creatinine 0.71 Est GFR ( Amer) > 60 Est GFR (Non-Af Amer) > 60 Glucose 92 Calcium 8.1 L Magnesium 2.1 01/13/17 01/13/17 01/13/17 04:25 08:33 12:35 Creatine Kinase 83018 H 62760 H 27293 H 01/13/17 01/13/17 01/14/17 16:05 20:15 01:10 Creatine Kinase 22145 H 37799 H 90999 H 01/14/17 01/15/17 01/16/17 06:12 04:15 04:05 Creatine Kinase 39212 H 75821 H 84210 H 01/17/17 01/19/17 01/20/17 04:13 04:50 03:57 Creatine Kinase 80515 H 86600 H 13858 H Impressions: Cervical Spine CT 01/12/17 00:00 IMPRESSION: NO ACUTE OR SIGNIFICANT FINDINGS IN THE CERVICAL SPINE. Head CT 01/12/17 00:00 IMPRESSION: NORMAL BRAIN CT WITHOUT CONTRAST. Shoulder X-Ray 01/14/17 06:00 IMPRESSION: NO RADIOGRAPHIC EVIDENCE OF ACUTE INJURY. The limitation. Venous Doppler Study 01/14/17 14:36 IMPRESSION: NO EVIDENCE DVT OR SVT IN THE RIGHT ARM. Chest X-Ray 01/20/17 06:00 IMPRESSION: Mild residual haziness -congestion of bilateral lower lobes. Some interval improvement. Assessment & Plan - Diagnosis (1) Alcohol dependence Qualifiers: Substance use status: with intoxication Complication of substance- induced condition: with unspecified complication Qualified Code(s): F10.229 - Alcohol dependence with intoxication, unspecified Is this a current diagnosis for this admission?: Yes (2) Alcohol intoxication Qualifiers: Complication of substance-induced condition: with unspecified complication Qualified Code(s): F10.929 - Alcohol use, unspecified with intoxication , unspecified Is this a current diagnosis for this admission?: No (3) Altered mental status Qualifiers: Altered mental status type: coma Coma depth: Malia coma 3-8 Coma timing: in the field (EMT or ambulance) Qualified Code(s): R40.2431 - Malia coma scale score 3-8, in the field [EMT or ambulance] Is this a current diagnosis for this admission?: Yes (4) Dehydration Is this a current diagnosis for this admission?: No (5) Metabolic acidosis Is this a current diagnosis for this admission?: No (6) Rhabdomyolysis Qualifiers: Rhabdomyolysis type: non-traumatic Qualified Code(s): M62.82 - Rhabdomyolysis Is this a current diagnosis for this admission?: YesPlan: enzymes continue to decline - Time Critical Time spent with patient: 25-34 minutes
[2017-01-20] MEDS: FAMOTIDINE INJ/PF 20 MG/2 ML SDV IV SCH ×2 (11:02→21:55)
[2017-01-20] MEDS: METHYLPREDNISOLONE INJ 40 MG/1 ML SDV IV SCH ×2 (11:02→21:55)
[2017-01-20] MEDS: FUROSEMIDE INJ/PF 20 MG/2 ML SDV IV SCH ×2 (11:03→21:55)
[2017-01-20] MEDS: HEPARIN SOD (PORCINE) 5,000 UNIT/ML 1 ML SYRINGE SUBCUT SCH ×2 (11:16→21:54)
[2017-01-20] MEDS: NORMAL SALINE 1000 ML 1,000 ML IV PRN (13:38)
[2017-01-20] MEDS: NORMAL SALINE 1000 ML 1,000 ML with THIAMINE HCL 100 MG, MVI, ADULT NO.1 WITH VIT K 10 ... IV SCH ×4 (17:41)
--- NOTE | 2017-01-20 18:29 | PDOC PROGRESS REPORT ---
Subjective Subjective:: Patient no longer intubated and sedated. Currently complains of pain in his right lower extremity. Patient still unable to discuss exact mechanism of his injury. States the pain is at his knee and below and is unable to move his leg. Has lost feeling in his leg. Pain 01/23. Physical Exam Vital Signs: Temp Pulse Resp BP Pulse Ox 99.9 F 87 17 147/92 H 97 01/20/17 16:00 01/20/17 16:00 01/20/17 16:00 01/20/17 16:03 01/20/17 16:00 Intake & Output 01/19/17 01/20/17 01/21/17 06:59 06:59 06:59 Intake Total 3766 2582 0136 Output Total 5938 0311 1876 Balance -1291 -71 187 Weight 86.2 kg 85.1 kg Musculoskeletal exam: PRESENT: other - Right lower extremity: Minimal swelling of the foot. Dorsalis pedis pulse 2+. Cap refill less than 2 seconds. Diffuse tenderness to palpation throughout the calf anterior and lateral. No gross deformity appreciated. No crepitus with palpation on the bone. Patient lacks plantar flexion/dorsiflexion and EHL. Has hypoesthesias throughout the right lower extremity. Tenderness to palpation on the neck of the fibula and anterior tibial tubercle. Right upper extremity: Previous blister healing. Swelling improved along the upper arm. Patient is intact abduction and forward flexion with notable weakness. Full elbow, wrist and hand range of motion. No sensory deficits. Patient able to make full composite fist. Results Laboratory Results: 01/20/17 03:57 01/20/17 03:57 01/20/17 01/20/17 01/20/17 03:57 03:57 04:03 WBC 17.4 H RBC 3.96 L Hgb 11.9 L Hct 34.5 L MCV 87 MCH 30.2 MCHC 34.6 RDW 12.8 Plt Count 275 Seg Neutrophils % 83.9 H Lymphocytes % 8.0 L Monocytes % 7.6 Eosinophils % 0.1 Basophils % 0.4 Absolute Neutrophils 14.6 H Absolute Lymphocytes 1.4 Absolute Monocytes 1.3 Absolute Eosinophils 0.0 Absolute Basophils 0.1 Carbonic Acid 1.04 L HCO3/H2CO3 Ratio 27:1 ABG pH 7.54 H ABG pCO2 34.7 L ABG pO2 66.7 L ABG HCO3 28.9 H ABG O2 Saturation 95.3 ABG Base Excess 6.3 FiO2 ROOM AIR Sodium 141.1 Potassium 3.5 L Chloride 107 Carbon Dioxide 29 Anion Gap 5 BUN 22 H Creatinine 0.71 Est GFR ( Amer) > 60 Est GFR (Non-Af Amer) > 60 Glucose 92 Calcium 8.1 L Magnesium 2.1 01/13/17 01/13/17 01/13/17 04:25 08:33 12:35 Creatine Kinase 34049 H 18729 H 98332 H 01/13/17 01/13/17 01/14/17 16:05 20:15 01:10 Creatine Kinase 63874 H 27245 H 54663 H 01/14/17 01/15/17 01/16/17 06:12 04:15 04:05 Creatine Kinase 70628 H 58742 H 35498 H 01/17/17 01/19/17 01/20/17 04:13 04:50 03:57 Creatine Kinase 81855 H 15811 H 27243 H Impressions: Cervical Spine CT 01/12/17 00:00 IMPRESSION: NO ACUTE OR SIGNIFICANT FINDINGS IN THE CERVICAL SPINE. Head CT 01/12/17 00:00 IMPRESSION: NORMAL BRAIN CT WITHOUT CONTRAST. Shoulder X-Ray 01/14/17 06:00 IMPRESSION: NO RADIOGRAPHIC EVIDENCE OF ACUTE INJURY. The limitation. Venous Doppler Study 01/14/17 14:36 IMPRESSION: NO EVIDENCE DVT OR SVT IN THE RIGHT ARM. Chest X-Ray 01/20/17 06:00 IMPRESSION: Mild residual haziness -congestion of bilateral lower lobes. Some interval improvement. Assessment & Plan - Diagnosis (1) Rhabdomyolysis Qualifiers: Rhabdomyolysis type: non-traumatic Qualified Code(s): M62.82 - Rhabdomyolysis Is this a current diagnosis for this admission?: Yes (2) Foot drop, right Is this a current diagnosis for this admission?: YesPlan: As the patient's right upper extremity he has no evidence of neurologic deficit and this is showing improvement patient's major issue is his right lower extremity where he presents with a foot drop with notable weakness and hypoesthesia. This is likely secondary to compression neurapraxia given the patient was found with multiple bruises on the right lower extremity however I will obtain radiographs of the right lower extremity and lumbar spine to evaluate for possible definitive etiology. Patient may require neurodiagnostic testing as an outpatient.
--- NOTE | 2017-01-20 23:49 | RADIOLOGY REPORT (SQ) ---
EXAM DESCRIPTION: L SPINE WHOLE COMPLETED DATE/TIME: 01/20/2017 9:26 pm REASON FOR STUDY: leg pain COMPARISON: None. NUMBER OF VIEWS: Five views including obliques. TECHNIQUE: AP, lateral, oblique, and sacral radiographic images acquired of the lumbar spine. LIMITATIONS: None. FINDINGS: MINERALIZATION: Normal. SEGMENTATION: Normal. No transitional anatomy. ALIGNMENT: Normal. VERTEBRAE: Maintained height. No fracture or worrisome bone lesion. DISCS: There is mild decrease in the L3-L4 disc space height. POSTERIOR ELEMENTS: Pedicles and facets are intact. No pars defect or posterior arch defects. HARDWARE: None in the spine. PARASPINAL SOFT TISSUES: Normal. PELVIS: Intact as visualized. No fractures or worrisome bone lesions. SI joints intact. OTHER: No other significant finding. IMPRESSION: Mild decrease in the L3-L4 disc space height. No other significant vertebral compressio n or disc space reduction. Other findings as noted above TECHNICAL DOCUMENTATION: JOB ID: [id number]- All Rights Reserved
--- NOTE | 2017-01-20 23:50 | RADIOLOGY REPORT (SQ) ---
EXAM DESCRIPTION: TIBIA FIBULA RIGHT COMPLETED DATE/TIME: 01/20/2017 9:26 pm REASON FOR STUDY: leg pain COMPARISON: None. NUMBER OF VIEWS: Two views. TECHNIQUE: Two radiographic images acquired of the right tibia and fibula to include the knee and an kle in at least one projection. LIMITATIONS: None. FINDINGS: MINERALIZATION: Normal. BONES: No acute fracture or dislocation. No worrisome bone lesions. SOFT TISSUES: No obvious swelling or foreign body. OTHER: No other significant finding. IMPRESSION: NEGATIVE STUDY OF THE RIGHT TIBIA AND FIBULA. NO RADIOGRAPHIC EVIDENCE OF ACUTE INJURY. TECHNICAL DOCUMENTATION: JOB ID: [id number] [employer]- All Rights Reserved
[2017-01-21] MEDS: IMIPENEM/CILASTATIN SODIUM 500 MG in NORMAL SALINE 100 ML IV SCH ×4 (02:11→19:43)
[2017-01-21] MEDS: NORMAL SALINE 1000 ML 1,000 ML IV PRN ×3 (02:12→19:44)
[2017-01-21 04:06] LABS: ABSOLUTE LYMPHOCYTES (AUTO) 1.1 10^3/uL (0.5-4.7); ABSOLUTE MONOCYTES (AUTO) 1.5 10^3/uL (0.1-1.4); ABSOLUTE NEUT (AUTO) 11.2 10^3/uL (1.7-8.2); BASOPHILS % (AUTO) 0.2 % (0-2); EOSINOPHILS % (AUTO) 0.2 % (0-6); HEMATOCRIT 34.5 % (37.9-51.0); HEMOGLOBIN 11.7 g/dL (13.5-17.0); HGB HCT DIFFERENCE 0.6; LYMPHOCYTES % (AUTO) 7.7 % (13-45); MEAN CORPUSCULAR HEMOGLOBIN 29.7 pg (27.0-33.4); MEAN CORPUSCULAR HGB CONC 33.9 g/dL (32.0-36.0); MEAN CORPUSCULAR VOLUME 87 fl (80-97); MONOCYTES % (AUTO) 10.6 % (3-13); RED BLOOD COUNT 3.94 10^6/uL (4.35-5.55); RED CELL DISTRIBUTION WIDTH 13.4 % (11.5-14.0); SEGMENTED NEUTROPHILS % (AUTO) 81.3 % (42-78); WHITE BLOOD COUNT 13.7 10^3/uL (4.0-10.5)
[2017-01-21 04:19] LABS: BLOOD UREA NITROGEN 27 mg/dL (7-20); CALCIUM 7.9 mg/dL (8.4-10.2); CARBON DIOXIDE 27 mmol/L (22-30); CHLORIDE 108 mmol/L (98-107); CREATININE RESULT 0.66 mg/dL (0.52-1.25); GLUCOSE 92 mg/dL (75-110); PHOSPHORUS 3.5 mg/dL (2.5-4.5); POTASSIUM 3.6 mmol/L (3.6-5.0)
[2017-01-21 04:36] LABS: SODIUM 139.2 mmol/L (137-145)
[2017-01-21 04:39] LABS: ANION GAP 4 (5-19)
[2017-01-21 04:48] LABS: CREATINE KINASE 5271 U/L (55-170)
[2017-01-21 05:11] LABS: ARTERIAL BLOOD BASE EXCESS 3.8 mmol/L; ARTERIAL BLOOD O2 SATURATION 95.4 % (94-98)
--- NOTE | 2017-01-21 09:01 | PDOC PROGRESS REPORT ---
Subjective Progress Note for:: 01/21/17 Subjective:: Patient was extubated 2 days ago. Still not able to eat. Reported depression as the patient having inability to move on the right lower extremity more than the upper extremity. No reported temperature spikes, respiratory distress, chills or fever, nor diarrhea. Oral intake remains poor. Patient reports no appetite. Physical Exam Vital Signs: Temp Pulse Resp BP Pulse Ox 99.7 F 86 16 148/98 H 97 01/21/17 08:00 01/21/17 08:36 01/21/17 08:00 01/21/17 08:00 01/21/17 08:00 Intake & Output 01/20/17 01/21/17 01/22/17 06:59 06:59 06:59 Intake Total 4604 4150 240 Output Total 4691 3475 170 Balance -71 675 70 Weight 85.1 kg 86.9 kg General appearance: PRESENT: no acute distress, cooperative Head exam: PRESENT: normocephalic Eye exam: PRESENT: EOMI Mouth exam: PRESENT: moist, neck supple Neck exam: ABSENT: JVD Respiratory exam: PRESENT: clear to auscultation jesus, unlabored. ABSENT: rhonchi, wheezes Cardiovascular exam: PRESENT: RRR. ABSENT: gallop GI/Abdominal exam: PRESENT: hypoactive bowel sounds. ABSENT: distended, soft, tenderness Extremities exam: PRESENT: pedal edema - Bilateral., other - Edema on the right upper extremity less. Trace pretibial edema bilateral. Neurological exam: PRESENT: alert, awake Psychiatric exam: PRESENT: depressed, flat affect, suicidal ideation Skin exam: PRESENT: dry, warm. ABSENT: cyanosis Results Laboratory Results: 01/21/17 03:59 01/21/17 03:59 01/21/17 01/21/17 01/21/17 03:59 03:59 04:52 WBC 13.7 H RBC 3.94 L Hgb 11.7 L Hct 34.5 L MCV 87 MCH 29.7 MCHC 33.9 RDW 13.4 Plt Count 291 Seg Neutrophils % 81.3 H Lymphocytes % 7.7 L Monocytes % 10.6 Eosinophils % 0.2 Basophils % 0.2 Absolute Neutrophils 11.2 H Absolute Lymphocytes 1.1 Absolute Monocytes 1.5 H Absolute Eosinophils 0.0 Absolute Basophils 0.0 Carbonic Acid 1.08 HCO3/H2CO3 Ratio 25:1 ABG pH 7.49 H ABG pCO2 35.9 ABG pO2 69.9 L ABG HCO3 27.0 H ABG O2 Saturation 95.4 ABG Base Excess 3.8 FiO2 ROOM AIR Sodium 139.2 Potassium 3.6 Chloride 108 H Carbon Dioxide 27 Anion Gap 4 L BUN 27 H Creatinine 0.66 Est GFR ( Amer) > 60 Est GFR (Non-Af Amer) > 60 Glucose 92 Calcium 7.9 L Phosphorus 3.5 Magnesium 2.0 01/13/17 01/13/17 01/13/17 04:25 08:33 12:35 Creatine Kinase 18160 H 16994 H 95126 H 01/13/17 01/13/17 01/14/17 16:05 20:15 01:10 Creatine Kinase 79652 H 59299 H 85237 H 01/14/17 01/15/17 01/16/17 06:12 04:15 04:05 Creatine Kinase 45151 H 02915 H 95619 H 01/17/17 01/19/17 01/20/17 04:13 04:50 03:57 Creatine Kinase 18132 H 55973 H 41124 H 01/21/17 03:59 Creatine Kinase 5271 H Impressions: Cervical Spine CT 01/12/17 00:00 IMPRESSION: NO ACUTE OR SIGNIFICANT FINDINGS IN THE CERVICAL SPINE. Head CT 01/12/17 00:00 IMPRESSION: NORMAL BRAIN CT WITHOUT CONTRAST. Shoulder X-Ray 01/14/17 06:00 IMPRESSION: NO RADIOGRAPHIC EVIDENCE OF ACUTE INJURY. The limitation. Venous Doppler Study 01/14/17 14:36 IMPRESSION: NO EVIDENCE DVT OR SVT IN THE RIGHT ARM. Lumbar Spine X-Ray 01/20/17 00:00 IMPRESSION: Mild decrease in the L3-L4 disc space height. No other significant vertebral compression or disc space reduction. Other findings as noted above Tibia/Fibula X-Ray 01/20/17 00:00 IMPRESSION: NEGATIVE STUDY OF THE RIGHT TIBIA AND FIBULA. NO RADIOGRAPHIC EVIDENCE OF ACUTE INJURY. Chest X-Ray 01/20/17 06:00 IMPRESSION: Mild residual haziness -congestion of bilateral lower lobes. Some interval improvement. Assessment & Plan - Diagnosis (1) Acute respiratory failure Qualifiers: Respiratory failure complication: unspecified whether with hypoxia or hypercapnia Qualified Code(s): J96.00 - Acute respiratory failure, unspecified whether with hypoxia or hypercapnia Is this a current diagnosis for this admission?: Yes (2) Aspiration into airway Qualifiers: Encounter type: initial encounter Qualified Code(s): T17.908A - Unspecified foreign body in respiratory tract, part unspecified causing other injury, initial encounter Is this a current diagnosis for this admission?: Yes (3) Hypovolemic shock Is this a current diagnosis for this admission?: Yes (4) Alcohol intoxication Qualifiers: Complication of substance-induced condition: with unspecified complication Qualified Code(s): F10.929 - Alcohol use, unspecified with intoxication , unspecified Is this a current diagnosis for this admission?: No (5) Rhabdomyolysis Qualifiers: Rhabdomyolysis type: non-traumatic Qualified Code(s): M62.82 - Rhabdomyolysis Is this a current diagnosis for this admission?: Yes (6) Alcohol dependence Qualifiers: Substance use status: with intoxication Complication of substance- induced condition: with unspecified complication Qualified Code(s): F10.229 - Alcohol dependence with intoxication, unspecified Is this a current diagnosis for this admission?: Yes (7) Elevated LFTs Is this a current diagnosis for this admission?: Yes (8) Hypernatremia Is this a current diagnosis for this admission?: Yes (9) Hypokalemia Is this a current diagnosis for this admission?: Yes (10) Insect bites and stings Is this a current diagnosis for this admission?: Yes (11) Foot drop, right Is this a current diagnosis for this admission?: Yes - Time Time Spent with patient: 25-34 minutes - Plan Summary Plan Summary: Begin physical therapy. Continue hydration. Consult psychiatry service. We will continue to monitor. Continue current antibiotics. Continue supportive care. We will check CPK level in the morning.
--- NOTE | 2017-01-21 09:18 | PDOC PROGRESS REPORT ---
Subjective Subjective:: Currently complains of pain in his right lower extremity. Patient still unable to discuss exact mechanism of his injury. States the pain is at his knee and below and is unable to move his leg. Has lost feeling in his leg. Pain 01/23. Physical Exam Vital Signs: Temp Pulse Resp BP Pulse Ox 99.7 F 86 16 148/98 H 97 01/21/17 08:00 01/21/17 08:36 01/21/17 08:00 01/21/17 08:00 01/21/17 08:00 Intake & Output 01/20/17 01/21/17 01/22/17 06:59 06:59 06:59 Intake Total 4604 4150 240 Output Total 4695 3475 170 Balance -71 675 70 Weight 85.1 kg 86.9 kg Musculoskeletal exam: PRESENT: other - Right lower extremity: Patient lacks ability to dorsiflex. Weakness with plantar flexion. Patient lacks sensation throughout the lower extremity. Diffuse tenderness to palpation unable to localize specific point tenderness. No pain with knee range of motion. No knee instability. Dorsalis pedis pulse 2+. Cap refill less than 2 seconds. Results Laboratory Results: 01/21/17 03:59 01/21/17 03:59 01/21/17 01/21/17 01/21/17 03:59 03:59 04:52 WBC 13.7 H RBC 3.94 L Hgb 11.7 L Hct 34.5 L MCV 87 MCH 29.7 MCHC 33.9 RDW 13.4 Plt Count 291 Seg Neutrophils % 81.3 H Lymphocytes % 7.7 L Monocytes % 10.6 Eosinophils % 0.2 Basophils % 0.2 Absolute Neutrophils 11.2 H Absolute Lymphocytes 1.1 Absolute Monocytes 1.5 H Absolute Eosinophils 0.0 Absolute Basophils 0.0 Carbonic Acid 1.08 HCO3/H2CO3 Ratio 25:1 ABG pH 7.49 H ABG pCO2 35.9 ABG pO2 69.9 L ABG HCO3 27.0 H ABG O2 Saturation 95.4 ABG Base Excess 3.8 FiO2 ROOM AIR Sodium 139.2 Potassium 3.6 Chloride 108 H Carbon Dioxide 27 Anion Gap 4 L BUN 27 H Creatinine 0.66 Est GFR ( Amer) > 60 Est GFR (Non-Af Amer) > 60 Glucose 92 Calcium 7.9 L Phosphorus 3.5 Magnesium 2.0 01/13/17 01/13/17 01/13/17 04:25 08:33 12:35 Creatine Kinase 68960 H 92023 H 36815 H 01/13/17 01/13/17 01/14/17 16:05 20:15 01:10 Creatine Kinase 99465 H 74984 H 14967 H 01/14/17 01/15/17 01/16/17 06:12 04:15 04:05 Creatine Kinase 87224 H 89013 H 54106 H 01/17/17 01/19/17 01/20/17 04:13 04:50 03:57 Creatine Kinase 36107 H 86482 H 76005 H 01/21/17 03:59 Creatine Kinase 5271 H Impressions: Cervical Spine CT 01/12/17 00:00 IMPRESSION: NO ACUTE OR SIGNIFICANT FINDINGS IN THE CERVICAL SPINE. Head CT 01/12/17 00:00 IMPRESSION: NORMAL BRAIN CT WITHOUT CONTRAST. Shoulder X-Ray 01/14/17 06:00 IMPRESSION: NO RADIOGRAPHIC EVIDENCE OF ACUTE INJURY. The limitation. Venous Doppler Study 01/14/17 14:36 IMPRESSION: NO EVIDENCE DVT OR SVT IN THE RIGHT ARM. Lumbar Spine X-Ray 01/20/17 00:00 IMPRESSION: Mild decrease in the L3-L4 disc space height. No other significant vertebral compression or disc space reduction. Other findings as noted above Tibia/Fibula X-Ray 01/20/17 00:00 IMPRESSION: NEGATIVE STUDY OF THE RIGHT TIBIA AND FIBULA. NO RADIOGRAPHIC EVIDENCE OF ACUTE INJURY. Chest X-Ray 01/20/17 06:00 IMPRESSION: Mild residual haziness -congestion of bilateral lower lobes. Some interval improvement. Assessment & Plan - Diagnosis (1) Rhabdomyolysis Qualifiers: Rhabdomyolysis type: non-traumatic Qualified Code(s): M62.82 - Rhabdomyolysis Is this a current diagnosis for this admission?: Yes (2) Foot drop, right Is this a current diagnosis for this admission?: YesPlan: As the patient's right upper extremity he has no evidence of neurologic deficit and this is showing improvement patient's major issue is his right lower extremity where he presents with a foot drop with notable weakness and hypoesthesia. This is likely secondary to compression neurapraxia given the patient was found with multiple bruises on the right lower extremity Radiographs have been negative up to this point without evidence of etiology. Patient may require further imaging such as MRI once medically stable to complete. Will consider neurodiagnostic testing i.e. EMG/NCV as an outpatient.
[2017-01-21] MEDS: METHYLPREDNISOLONE INJ 40 MG/1 ML SDV IV SCH ×2 (10:17→21:33)
[2017-01-21] MEDS: FAMOTIDINE INJ/PF 20 MG/2 ML SDV IV SCH ×2 (10:17→21:33)
[2017-01-21] MEDS: HEPARIN SOD (PORCINE) 5,000 UNIT/ML 1 ML SYRINGE SUBCUT SCH ×2 (10:21→21:33)
[2017-01-21] MEDS: FUROSEMIDE INJ/PF 20 MG/2 ML SDV IV SCH ×2 (10:23→21:33)
--- NOTE | 2017-01-21 11:07 | PDOC PROGRESS REPORT ---
Subjective Progress Note for:: 01/21/17 Subjective:: Crying very labile emotionally Physical Exam Vital Signs: Temp Pulse Resp BP Pulse Ox 99.7 F 88 16 148/98 H 97 01/21/17 08:00 01/21/17 08:00 01/21/17 08:00 01/21/17 08:00 01/21/17 08:00 Intake & Output 01/20/17 01/21/17 01/22/17 06:59 06:59 06:59 Intake Total 4607 4150 Output Total 4659 9275 Balance -71 675 Weight 85.1 kg 86.9 kg General appearance: PRESENT: cooperative, disheveled, well-developed, well- nourished Head exam: PRESENT: atraumatic, normocephalic Eye exam: PRESENT: conjunctiva pale, EOMI Mouth exam: PRESENT: moist, neck supple, tongue midline Neck exam: ABSENT: carotid bruit, JVD, lymphadenopathy, thyromegaly Respiratory exam: PRESENT: decreased breath sounds, prolonged expiratory phas, symmetrical, unlabored Cardiovascular exam: PRESENT: RRR, +S1, +S2 Pulses: PRESENT: normal radial pulses GI/Abdominal exam: PRESENT: normal bowel sounds, soft. ABSENT: distended, guarding, mass, organolmegaly, rebound, tenderness Rectal exam: PRESENT: deferred Musculoskeletal exam: PRESENT: normal inspection Neurological exam: PRESENT: awake Psychiatric exam: PRESENT: depressed Skin exam: PRESENT: dry, warm Results Laboratory Results: 01/21/17 03:59 01/21/17 03:59 01/21/17 01/21/17 01/21/17 03:59 03:59 04:52 WBC 13.7 H RBC 3.94 L Hgb 11.7 L Hct 34.5 L MCV 87 MCH 29.7 MCHC 33.9 RDW 13.4 Plt Count 291 Seg Neutrophils % 81.3 H Lymphocytes % 7.7 L Monocytes % 10.6 Eosinophils % 0.2 Basophils % 0.2 Absolute Neutrophils 11.2 H Absolute Lymphocytes 1.1 Absolute Monocytes 1.5 H Absolute Eosinophils 0.0 Absolute Basophils 0.0 Carbonic Acid 1.08 HCO3/H2CO3 Ratio 25:1 ABG pH 7.49 H ABG pCO2 35.9 ABG pO2 69.9 L ABG HCO3 27.0 H ABG O2 Saturation 95.4 ABG Base Excess 3.8 FiO2 ROOM AIR Sodium 139.2 Potassium 3.6 Chloride 108 H Carbon Dioxide 27 Anion Gap 4 L BUN 27 H Creatinine 0.66 Est GFR ( Amer) > 60 Est GFR (Non-Af Amer) > 60 Glucose 92 Calcium 7.9 L Phosphorus 3.5 Magnesium 2.0 01/13/17 01/13/17 01/13/17 04:25 08:33 12:35 Creatine Kinase 07131 H 27174 H 47863 H 01/13/17 01/13/17 01/14/17 16:05 20:15 01:10 Creatine Kinase 45211 H 19382 H 24018 H 01/14/17 01/15/17 01/16/17 06:12 04:15 04:05 Creatine Kinase 63792 H 34106 H 30391 H 01/17/17 01/19/17 01/20/17 04:13 04:50 03:57 Creatine Kinase 57001 H 05463 H 85923 H 01/21/17 03:59 Creatine Kinase 5271 H Impressions: Cervical Spine CT 01/12/17 00:00 IMPRESSION: NO ACUTE OR SIGNIFICANT FINDINGS IN THE CERVICAL SPINE. Head CT 01/12/17 00:00 IMPRESSION: NORMAL BRAIN CT WITHOUT CONTRAST. Shoulder X-Ray 01/14/17 06:00 IMPRESSION: NO RADIOGRAPHIC EVIDENCE OF ACUTE INJURY. The limitation. Venous Doppler Study 01/14/17 14:36 IMPRESSION: NO EVIDENCE DVT OR SVT IN THE RIGHT ARM. Lumbar Spine X-Ray 01/20/17 00:00 IMPRESSION: Mild decrease in the L3-L4 disc space height. No other significant vertebral compression or disc space reduction. Other findings as noted above Tibia/Fibula X-Ray 01/20/17 00:00 IMPRESSION: NEGATIVE STUDY OF THE RIGHT TIBIA AND FIBULA. NO RADIOGRAPHIC EVIDENCE OF ACUTE INJURY. Chest X-Ray 01/20/17 06:00 IMPRESSION: Mild residual haziness -congestion of bilateral lower lobes. Some interval improvement. Assessment & Plan - Diagnosis (1) Alcohol dependence Qualifiers: Substance use status: with intoxication Complication of substance- induced condition: with unspecified complication Qualified Code(s): F10.229 - Alcohol dependence with intoxication, unspecified Is this a current diagnosis for this admission?: Yes (2) Alcohol intoxication Qualifiers: Complication of substance-induced condition: with unspecified complication Qualified Code(s): F10.929 - Alcohol use, unspecified with intoxication , unspecified Is this a current diagnosis for this admission?: No (3) Altered mental status Qualifiers: Altered mental status type: coma Coma depth: Malia coma 3-8 Coma timing: in the field (EMT or ambulance) Qualified Code(s): R40.2431 - [place] coma scale score 3-8, in the field [EMT or ambulance] Is this a current diagnosis for this admission?: Yes (4) Dehydration Is this a current diagnosis for this admission?: No (5) Metabolic acidosis Is this a current diagnosis for this admission?: No (6) Rhabdomyolysis Qualifiers: Rhabdomyolysis type: non-traumatic Qualified Code(s): M62.82 - Rhabdomyolysis Is this a current diagnosis for this admission?: YesPlan: enzymes continue to decline - Time Critical Time spent with patient: 35 or more minutes - RN,RT PCP 50 min
[2017-01-21] MEDS: NORMAL SALINE 1000 ML 1,000 ML with THIAMINE HCL 100 MG, MVI, ADULT NO.1 WITH VIT K 10 ... IV SCH ×4 (20:50)
[2017-01-21] MEDS: LORAZEPAM INJ 2 MG/1 ML VIAL IV PRN (21:33)
[2017-01-21] MEDS ORDERED: HYDRALAZINE HCL INJ/PF 20 MG/1 ML SDV IV PRN (22:37)
[2017-01-22] MEDS: IMIPENEM/CILASTATIN SODIUM 500 MG in NORMAL SALINE 100 ML IV SCH ×4 (00:22→17:24)
[2017-01-22] MEDS: NORMAL SALINE 1000 ML 1,000 ML IV PRN (08:28)
--- NOTE | 2017-01-22 09:52 | PDOC PROGRESS REPORT ---
Subjective Progress Note for:: 01/22/17 Subjective:: Patient is slowly improving. Able to move right foot. Still having difficulty lifting the leg. Patient has improved mobility on the right upper extremity. Denies chills or fever. No reported diarrhea. Patient is more awake and alert and able to engage in conversation. No reported agitation or restlessness. Had been depressed and reportedly has suicide thoughts yesterday. Patient currently on a sitter. Physical Exam Vital Signs: Temp Pulse Resp BP Pulse Ox 99.4 F 94 20 151/86 H 97 01/22/17 07:39 01/22/17 07:39 01/22/17 07:39 01/22/17 07:39 01/22/17 07:39 Intake & Output 01/21/17 01/22/17 01/23/17 06:59 06:59 06:59 Intake Total 4150 4003 Output Total 3475 4259 Balance 675 -262 Weight 86.9 kg 87.2 kg General appearance: PRESENT: no acute distress, cooperative Head exam: PRESENT: normocephalic Eye exam: PRESENT: EOMI Mouth exam: PRESENT: moist, neck supple Neck exam: ABSENT: JVD Respiratory exam: PRESENT: clear to auscultation jesus. ABSENT: rhonchi, wheezes Cardiovascular exam: PRESENT: RRR. ABSENT: gallop GI/Abdominal exam: PRESENT: soft. ABSENT: distended, tenderness Extremities exam: PRESENT: pedal edema - Bilateral, other - Right upper extremity edema less Neurological exam: PRESENT: alert, awake Psychiatric exam: ABSENT: agitated Focused psych exam: ABSENT: restlessness Skin exam: PRESENT: dry, warm. ABSENT: cyanosis Results Laboratory Results: 01/21/17 03:59 01/21/17 03:59 01/13/17 01/13/17 01/13/17 04:25 08:33 12:35 Creatine Kinase 00932 H 03390 H 20575 H 01/13/17 01/13/17 01/14/17 16:05 20:15 01:10 Creatine Kinase 02388 H 81058 H 75398 H 01/14/17 01/15/17 01/16/17 06:12 04:15 04:05 Creatine Kinase 95237 H 44867 H 64357 H 01/17/17 01/19/17 01/20/17 04:13 04:50 03:57 Creatine Kinase 26761 H 17866 H 86607 H 01/21/17 01/22/17 03:59 06:29 Creatine Kinase 5271 H 3027 H Impressions: Cervical Spine CT 01/12/17 00:00 IMPRESSION: NO ACUTE OR SIGNIFICANT FINDINGS IN THE CERVICAL SPINE. Head CT 01/12/17 00:00 IMPRESSION: NORMAL BRAIN CT WITHOUT CONTRAST. Shoulder X-Ray 01/14/17 06:00 IMPRESSION: NO RADIOGRAPHIC EVIDENCE OF ACUTE INJURY. The limitation. Venous Doppler Study 01/14/17 14:36 IMPRESSION: NO EVIDENCE DVT OR SVT IN THE RIGHT ARM. Lumbar Spine X-Ray 01/20/17 00:00 IMPRESSION: Mild decrease in the L3-L4 disc space height. No other significant vertebral compression or disc space reduction. Other findings as noted above Tibia/Fibula X-Ray 01/20/17 00:00 IMPRESSION: NEGATIVE STUDY OF THE RIGHT TIBIA AND FIBULA. NO RADIOGRAPHIC EVIDENCE OF ACUTE INJURY. Chest X-Ray 01/20/17 06:00 IMPRESSION: Mild residual haziness -congestion of bilateral lower lobes. Some interval improvement. Assessment & Plan - Diagnosis (1) Acute respiratory failure Qualifiers: Respiratory failure complication: unspecified whether with hypoxia or hypercapnia Qualified Code(s): J96.00 - Acute respiratory failure, unspecified whether with hypoxia or hypercapnia Is this a current diagnosis for this admission?: Yes (2) Aspiration into airway Qualifiers: Encounter type: initial encounter Qualified Code(s): T17.908A - Unspecified foreign body in respiratory tract, part unspecified causing other injury, initial encounter Is this a current diagnosis for this admission?: Yes (3) Hypovolemic shock Is this a current diagnosis for this admission?: Yes (4) Alcohol intoxication Qualifiers: Complication of substance-induced condition: with unspecified complication Qualified Code(s): F10.929 - Alcohol use, unspecified with intoxication , unspecified Is this a current diagnosis for this admission?: No (5) Rhabdomyolysis Qualifiers: Rhabdomyolysis type: non-traumatic Qualified Code(s): M62.82 - Rhabdomyolysis Is this a current diagnosis for this admission?: Yes (6) Alcohol dependence Qualifiers: Substance use status: with intoxication Complication of substance- induced condition: with unspecified complication Qualified Code(s): F10.229 - Alcohol dependence with intoxication, unspecified Is this a current diagnosis for this admission?: Yes (7) Elevated LFTs Is this a current diagnosis for this admission?: Yes (8) Hypernatremia Is this a current diagnosis for this admission?: Yes (9) Hypokalemia Is this a current diagnosis for this admission?: Yes (10) Insect bites and stings Is this a current diagnosis for this admission?: Yes (11) Foot drop, right Is this a current diagnosis for this admission?: Yes - Time Time Spent with patient: 25-34 minutes - Plan Summary Plan Summary: We will continue current medications. Obtain physical therapy. Obtain MRI of the brain and lumbar spine. Continue supportive care. Consult systems planner for rehabilitation. Awaiting psychiatry evaluation.
--- NOTE | 2017-01-22 11:03 | PDOC PROGRESS REPORT ---
Subjective Progress Note for:: 01/22/17 Subjective:: I am okay right now Physical Exam Vital Signs: Temp Pulse Resp BP Pulse Ox 99.4 F 94 20 151/86 H 97 01/22/17 07:39 01/22/17 07:39 01/22/17 07:39 01/22/17 07:39 01/22/17 07:39 Intake & Output 01/21/17 01/22/17 01/23/17 06:59 06:59 06:59 Intake Total 4150 4003 Output Total 347 4212 Balance 675 -262 Weight 86.9 kg 87.2 kg General appearance: PRESENT: no acute distress, cooperative, disheveled, well- developed, well-nourished Head exam: PRESENT: atraumatic, normocephalic Eye exam: PRESENT: conjunctiva pale, EOMI Mouth exam: PRESENT: moist, neck supple, tongue midline Neck exam: ABSENT: carotid bruit, JVD, lymphadenopathy, thyromegaly Respiratory exam: PRESENT: decreased breath sounds, prolonged expiratory phas, symmetrical, unlabored Cardiovascular exam: PRESENT: RRR, +S1, +S2 Pulses: PRESENT: normal radial pulses GI/Abdominal exam: PRESENT: normal bowel sounds, soft. ABSENT: distended, guarding, mass, organolmegaly, rebound, tenderness Rectal exam: PRESENT: deferred Musculoskeletal exam: PRESENT: normal inspection Neurological exam: PRESENT: awake Psychiatric exam: PRESENT: depressed Skin exam: PRESENT: dry, warm Results Laboratory Results: 01/21/17 03:59 01/21/17 03:59 01/13/17 01/13/17 01/13/17 04:25 08:33 12:35 Creatine Kinase 78768 H 15723 H 69529 H 01/13/17 01/13/17 01/14/17 16:05 20:15 01:10 Creatine Kinase 11326 H 99503 H 54034 H 01/14/17 01/15/17 01/16/17 06:12 04:15 04:05 Creatine Kinase 13732 H 31096 H 69266 H 01/17/17 01/19/17 01/20/17 04:13 04:50 03:57 Creatine Kinase 95201 H 89085 H 26048 H 01/21/17 01/22/17 03:59 06:29 Creatine Kinase 5271 H 3027 H Impressions: Cervical Spine CT 01/12/17 00:00 IMPRESSION: NO ACUTE OR SIGNIFICANT FINDINGS IN THE CERVICAL SPINE. Head CT 01/12/17 00:00 IMPRESSION: NORMAL BRAIN CT WITHOUT CONTRAST. Shoulder X-Ray 01/14/17 06:00 IMPRESSION: NO RADIOGRAPHIC EVIDENCE OF ACUTE INJURY. The limitation. Venous Doppler Study 01/14/17 14:36 IMPRESSION: NO EVIDENCE DVT OR SVT IN THE RIGHT ARM. Lumbar Spine X-Ray 01/20/17 00:00 IMPRESSION: Mild decrease in the L3-L4 disc space height. No other significant vertebral compression or disc space reduction. Other findings as noted above Tibia/Fibula X-Ray 01/20/17 00:00 IMPRESSION: NEGATIVE STUDY OF THE RIGHT TIBIA AND FIBULA. NO RADIOGRAPHIC EVIDENCE OF ACUTE INJURY. Chest X-Ray 01/20/17 06:00 IMPRESSION: Mild residual haziness -congestion of bilateral lower lobes. Some interval improvement. Assessment & Plan - Diagnosis (1) Alcohol dependence Qualifiers: Substance use status: with intoxication Complication of substance- induced condition: with unspecified complication Qualified Code(s): F10.229 - Alcohol dependence with intoxication, unspecified Is this a current diagnosis for this admission?: Yes (2) Alcohol intoxication Qualifiers: Complication of substance-induced condition: with unspecified complication Qualified Code(s): F10.929 - Alcohol use, unspecified with intoxication , unspecified Is this a current diagnosis for this admission?: No (3) Altered mental status Qualifiers: Altered mental status type: coma Coma depth: Malia coma 3-8 Coma timing: in the field (EMT or ambulance) Qualified Code(s): R40.2431 - [place] coma scale score 3-8, in the field [EMT or ambulance] Is this a current diagnosis for this admission?: No (4) Dehydration Is this a current diagnosis for this admission?: No (5) Metabolic acidosis Is this a current diagnosis for this admission?: No (6) Rhabdomyolysis Qualifiers: Rhabdomyolysis type: non-traumatic Qualified Code(s): M62.82 - Rhabdomyolysis Is this a current diagnosis for this admission?: YesPlan: enzymes continue to decline - Plan Summary Plan Summary: .We will sign off for now please do not hesitate to call if pulmonary service can be of additional assistance. Thank you again for this consult
[2017-01-22] MEDS: FUROSEMIDE INJ/PF 20 MG/2 ML SDV IV SCH ×2 (12:03→22:33)
[2017-01-22] MEDS: METHYLPREDNISOLONE INJ 40 MG/1 ML SDV IV SCH ×2 (12:07→22:33)
[2017-01-22] MEDS: FAMOTIDINE INJ/PF 20 MG/2 ML SDV IV SCH ×2 (12:07→22:33)
[2017-01-22] MEDS: HEPARIN SOD (PORCINE) 5,000 UNIT/ML 1 ML SYRINGE SUBCUT SCH ×2 (12:08→22:33)
--- NOTE | 2017-01-22 13:52 | PSYCHOLOGICAL NOTE ---
Psych Note - Psych Note Psych Note: Patient is a 31 year old male who is admitted to [facility] Hospitalist's services after he was found obtunded and unresponsive. Patient was intubated and admitted t ICU where he remained until the . Patient's BAL upon arrival was in the 500s. Patient has struggled since his admission with right sided weakness, and pain as well as minimal movement. Patient today is tearful and at times struggles to verbally communicate, aeb using incorrect words, stuttering, etc. Patient acknowledges underlying depression specific to the loss of his father, as well as daily ETOH since on or around his teenage years. Patient states he found his father after he committed suicide, hanging in their garage. He states his father served in [place], and had multiple forms of Cancer. Patient states he was 9 years old and everyday he sees that image. Patient becomes tearful and states he does not have a father and misses him. Patient reports no prior suicide attempts and or mental health/substance abuse treatment. Patient denies prior detox episodes. Jorge Luis Martinez states the patient is his cousin, and none live here , are only here temporarily working. Cousin states the patient had a syncopal episode on the job because he was overheated a few weeks ago. He states, the patient did not tell anyone, but each night was not keeping fluids down and was vomiting due to dehydration. Cousin states when they finished work that day, he went home and must have had a couple of beers, and passed out, but due to the dehydration and his liver not processing properly, his BAL went extremely high. Cousin states he went back and checked his camper and trash can, and found only 4 beers cans. Cousin states there was no other evidence of chronic daily drinking, such as numerous empty cans, or trash suggesting frequent and excessive use. Cousin states he has never known the patient to be depressed. Cousin reports the patient does not need to worry about his job, he just needs to focus on healing. Cousin reports if the patient could go outside and get some fresh air, "it would do him a world of good because he despises being stuck inside." Patient is A&O. Mood is sad with tearful affect. Patient denies suicidal/ homicidal ideations, intent, plan, or means. Patient denies A/V H; delusions not noted. Thought processes were inconsistent. Patient at times struggled with pronunciation of words, and would slur words. Attention and focus were poor. Insight, judgment, and impulse control were poor. Unspecified Neurocognitive Disorder R/O Alcohol Use Disorder Patient at this time presents emotionally labile, and is mostly tearful when talking about his life, habits, and specifically the loss of his father. Collateral information suggests patient is a hard working, occasional drinker who consumes only a few beers at a time and further states he has "never known him to be depressed." Patient states he "thinks" drinks daily and has for a number of years, to include about 8 beers per day. Patient will later state he is not sure of his daily intake. Patient does acknowledge that he emotionally struggles with the of his father, and flashbacks from the day he found him hanging. Patient denies suicidal ideations and states he is motived to discontinue alcohol use. Patient reports he is agreeable to medications to address any underlying depression as well as engaging in treatment, specifically AA. Patient was provided resources to assist him in following up should he chose to do so, upon discharge from this facility or a rehabilitative facility. I consulted with Dr. Chaves in regards to the care and management of this patient. Hospitalist made aware of disposition and recommendations.
[2017-01-22] MEDS: NORMAL SALINE 1000 ML 1,000 ML with THIAMINE HCL 100 MG, MVI, ADULT NO.1 WITH VIT K 10 ... IV SCH ×4 (17:24)
[2017-01-23] MEDS: IMIPENEM/CILASTATIN SODIUM 500 MG in NORMAL SALINE 100 ML IV SCH ×4 (00:42→17:53)
--- NOTE | 2017-01-23 09:30 | PDOC PROGRESS REPORT ---
Subjective Progress Note for:: 01/23/17 Subjective:: Slowly improving. Gaining little strength on the upper extremity and right as well as lower extremity on the right. Having some difficulty sitting upon standing. Able to ambulate around. Speech likewise is getting better. No reported temperature spikes or respiratory distress. No nausea or vomiting, no diarrhea. Physical Exam Vital Signs: Temp Pulse Resp BP Pulse Ox 99.2 F 91 18 154/93 H 98 01/22/17 23:41 01/23/17 08:46 01/23/17 08:46 01/22/17 23:41 01/23/17 08:46 Intake & Output 01/22/17 01/23/17 01/24/17 06:59 06:59 06:59 Intake Total 4001 4159 Output Total 0667 1255 Balance -262 -2798 Weight 87.2 kg 87.1 kg General appearance: PRESENT: no acute distress, cooperative Head exam: PRESENT: normocephalic Eye exam: PRESENT: EOMI Mouth exam: PRESENT: moist, neck supple Neck exam: ABSENT: JVD Respiratory exam: PRESENT: clear to auscultation jesus. ABSENT: rhonchi, wheezes Cardiovascular exam: PRESENT: RRR. ABSENT: gallop GI/Abdominal exam: PRESENT: soft. ABSENT: distended, tenderness Extremities exam: PRESENT: pedal edema Neurological exam: PRESENT: alert, awake, oriented to situation Skin exam: PRESENT: dry, warm. ABSENT: cyanosis Results Laboratory Results: 01/21/17 03:59 01/21/17 03:59 01/13/17 01/13/17 01/13/17 04:25 08:33 12:35 Creatine Kinase 00426 H 16017 H 78751 H 01/13/17 01/13/17 01/14/17 16:05 20:15 01:10 Creatine Kinase 85091 H 89377 H 71899 H 01/14/17 01/15/17 01/16/17 06:12 04:15 04:05 Creatine Kinase 95790 H 97175 H 71789 H 01/17/17 01/19/17 01/20/17 04:13 04:50 03:57 Creatine Kinase 35653 H 28987 H 51563 H 01/21/17 01/22/17 03:59 06:29 Creatine Kinase 5271 H 3027 H Impressions: Cervical Spine CT 01/12/17 00:00 IMPRESSION: NO ACUTE OR SIGNIFICANT FINDINGS IN THE CERVICAL SPINE. Head CT 01/12/17 00:00 IMPRESSION: NORMAL BRAIN CT WITHOUT CONTRAST. Shoulder X-Ray 01/14/17 06:00 IMPRESSION: NO RADIOGRAPHIC EVIDENCE OF ACUTE INJURY. The limitation. Venous Doppler Study 01/14/17 14:36 IMPRESSION: NO EVIDENCE DVT OR SVT IN THE RIGHT ARM. Lumbar Spine X-Ray 01/20/17 00:00 IMPRESSION: Mild decrease in the L3-L4 disc space height. No other significant vertebral compression or disc space reduction. Other findings as noted above Tibia/Fibula X-Ray 01/20/17 00:00 IMPRESSION: NEGATIVE STUDY OF THE RIGHT TIBIA AND FIBULA. NO RADIOGRAPHIC EVIDENCE OF ACUTE INJURY. Chest X-Ray 01/20/17 06:00 IMPRESSION: Mild residual haziness -congestion of bilateral lower lobes. Some interval improvement. Assessment & Plan - Diagnosis (1) Acute respiratory failure Qualifiers: Respiratory failure complication: unspecified whether with hypoxia or hypercapnia Qualified Code(s): J96.00 - Acute respiratory failure, unspecified whether with hypoxia or hypercapnia Is this a current diagnosis for this admission?: Yes (2) Aspiration into airway Qualifiers: Encounter type: initial encounter Qualified Code(s): T17.908A - Unspecified foreign body in respiratory tract, part unspecified causing other injury, initial encounter Is this a current diagnosis for this admission?: Yes (3) Hypovolemic shock Is this a current diagnosis for this admission?: Yes (4) Alcohol intoxication Qualifiers: Complication of substance-induced condition: with unspecified complication Qualified Code(s): F10.929 - Alcohol use, unspecified with intoxication , unspecified Is this a current diagnosis for this admission?: No (5) Rhabdomyolysis Qualifiers: Rhabdomyolysis type: non-traumatic Qualified Code(s): M62.82 - Rhabdomyolysis Is this a current diagnosis for this admission?: Yes (6) Alcohol dependence Qualifiers: Substance use status: with intoxication Complication of substance- induced condition: with unspecified complication Qualified Code(s): F10.229 - Alcohol dependence with intoxication, unspecified Is this a current diagnosis for this admission?: Yes (7) Elevated LFTs Is this a current diagnosis for this admission?: Yes (8) Hypernatremia Is this a current diagnosis for this admission?: Yes (9) Hypokalemia Is this a current diagnosis for this admission?: Yes (10) Insect bites and stings Is this a current diagnosis for this admission?: Yes (11) Foot drop, right Is this a current diagnosis for this admission?: Yes - Time Time Spent with patient: 25-34 minutes - Plan Summary Plan Summary: We will add speech therapy for the stuttering and sometimes difficulty expressing self. Continue physical therapy. Discontinue Luna catheter. Recheck CBC basic metabolic panel as well as total CPK. Complete antibiotic for 10 days. Continue supportive care. Consult business planner for possible acute rehab.
[2017-01-23] MEDS: METHYLPREDNISOLONE INJ 40 MG/1 ML SDV IV SCH ×2 (10:16→22:34)
[2017-01-23] MEDS: FUROSEMIDE INJ/PF 20 MG/2 ML SDV IV SCH (10:16)
[2017-01-23] MEDS: HEPARIN SOD (PORCINE) 5,000 UNIT/ML 1 ML SYRINGE SUBCUT SCH ×2 (10:16→22:35)
[2017-01-23] MEDS: FAMOTIDINE INJ/PF 20 MG/2 ML SDV IV SCH (10:16)
[2017-01-23] MEDS ORDERED: HYDRALAZINE HCL INJ/PF 20 MG/1 ML SDV IV PRN (13:15)
[2017-01-23] MEDS: NORMAL SALINE 1000 ML 1,000 ML IV PRN (15:20)
[2017-01-23] MEDS: THIAMINE HCL 100 MG TABLET PO SCH (17:52)
[2017-01-23] MEDS: FOLIC ACID 1 MG TABLET PO SCH (17:52)
[2017-01-23] MEDS: MULTIVITAMIN TABLET PO SCH (17:52)
--- NOTE | 2017-01-23 20:45 | RADIOLOGY REPORT (SQ) ---
EXAM DESCRIPTION: MRI HEAD WITHOUT COMPLETED DATE/TIME: 01/23/2017 8:30 pm REASON FOR STUDY: right sided weakness COMPARISON: None. TECHNIQUE: Multiplanar imaging includes non-contrasted T1, T2, FLAIR, and diffusion with ADC map seq uences. Images stored on PACS. LIMITATIONS: None. FINDINGS: ANATOMY: No anomalies. Normal vascular flow voids. Pituitary fossa normal. CSF SPACES: Normal in size and contour. No hemorrhage. CEREBRUM: Sulci and gyri normal in size and contour. Normal white matter signal on FLAIR imaging. No evidence of hemorrhage, mass, or extraaxial fluid collection. POSTERIOR FOSSA: No signal alteration. No hemorrhage. No edema, masses or mass effect. Internal lachelle tory canals, cerebello-pontine angles, mastoids normal. DIFFUSION IMAGING: Negative for acute or sub-acute infarction. ORBITS: No masses. Globes normal. PARANASAL SINUSES: No fluid levels. Mucosa normal. OTHER: No other significant finding. IMPRESSION: NORMAL MRI OF THE BRAIN WITHOUT INTRAVENOUS GADOLINIUM CONTRAST. EVIDENCE OF ACUTE STROKE: NO. TECHNICAL DOCUMENTATION: JOB ID: [id number] [employer]- All Rights Reserved
[2017-01-23] MEDS: FAMOTIDINE 20 MG TABLET PO SCH (22:35)
[2017-01-24] MEDS: IMIPENEM/CILASTATIN SODIUM 500 MG in NORMAL SALINE 100 ML IV SCH ×2 (00:29→06:25)
--- NOTE | 2017-01-24 03:30 | RADIOLOGY REPORT (SQ) ---
EXAM DESCRIPTION: MRI LUMBAR SPINE WITHOUT COMPLETED DATE/TIME: 01/23/2017 8:30 pm REASON FOR STUDY: RL Ext weakness COMPARISON: None. TECHNIQUE: Sagittal and Axial imaging includes T1, T2, STIR and gradient echo sequences. Coronal T2/ HASTE imaging. LIMITATIONS: None. FINDINGS: VISUALIZED UPPER ABDOMEN: Limited evaluation. 1.6 cm likely benign cystic lesion of the upper pole of the left kidney not definitively characterized on very limited imaging visualization on coronal T2 imaging only. SEGMENTATION: No transitional anatomy. The lowest well-developed disc space is labeled L5-S1. ALIGNMENT: Anatomic. Mild levo convexity. VERTEBRAE: Intact. BONE MARROW: Normal. No marrow replacement or reactive changes. DISC SIGNAL: Normal. No significant abnormal signal or loss of height. POSTERIOR ELEMENTS: Generally intact. No pars defect evident. HARDWARE: None in the spine. CORD AND CONUS: Normal in size and signal intensity. Conus at the appropriate level. SOFT TISSUES: No aortic aneurysm seen. No bulky retroperitoneal adenopathy or mass. No paraspinal mas s or fluid. L1-L2: No significant spinal stenosis or exit foraminal stenosis. L2-L3: No significant spinal stenosis or exit foraminal stenosis. L3-L4: Mild thecal sac compression at the L3-L4 disc level. Small disc bulge and mild spondylosis. Mild bilateral L3 foraminal stenosis. L4-L5: No significant spinal stenosis or exit foraminal stenosis. L5-S1: No significant spinal stenosis or exit foraminal stenosis. Moderate deformity of the left L5 lamina appears developmental. LOWER THORACIC: Incompletely imaged. No stenosis seen. SACRUM: Visualized upper sacrum intact. OTHER: No other significant findings. IMPRESSION: Mild thecal sac compression at the L3-L4 level due to a small disc bulge and mild spondy losis. TECHNICAL DOCUMENTATION: JOB ID: [id number] [employer]- All Rights Reserved
[2017-01-24 04:52] LABS: HEMATOCRIT 30.6 % (37.9-51.0); HEMOGLOBIN 10.4 g/dL (13.5-17.0); HGB HCT DIFFERENCE 0.6; MEAN CORPUSCULAR HEMOGLOBIN 29.8 pg (27.0-33.4); MEAN CORPUSCULAR HGB CONC 33.8 g/dL (32.0-36.0); MEAN CORPUSCULAR VOLUME 88 fl (80-97); RED BLOOD COUNT 3.48 10^6/uL (4.35-5.55); RED CELL DISTRIBUTION WIDTH 13.3 % (11.5-14.0); WHITE BLOOD COUNT 16.9 10^3/uL (4.0-10.5)
[2017-01-24 05:04] LABS: BLOOD UREA NITROGEN 17 mg/dL (7-20); CALCIUM 8.2 mg/dL (8.4-10.2); CHLORIDE 106 mmol/L (98-107); CREATINE KINASE 1318 U/L (55-170); CREATININE RESULT 0.69 mg/dL (0.52-1.25); GLUCOSE 101 mg/dL (75-110); POTASSIUM 3.7 mmol/L (3.6-5.0)
[2017-01-24 05:23] LABS: ANION GAP 5 (5-19); CARBON DIOXIDE 29 mmol/L (22-30); SODIUM 139.8 mmol/L (137-145)
--- NOTE | 2017-01-24 08:43 | PDOC PROGRESS REPORT ---
Subjective Progress Note for:: 01/24/17 Subjective:: Patient's upper extremity and lower extremity strength on the right unchanged from yesterday but overall improved. No reported temperature spikes, respiratory distress, diarrhea, nausea or vomiting. Patient completing IV medication treatment for pneumonia. Occasionally there will be some pain and discomfort. MRI did not reveal any acute abnormality. Physical Exam Vital Signs: Temp Pulse Resp BP Pulse Ox 98.3 F 72 16 148/98 H 98 01/24/17 07:16 01/24/17 07:16 01/24/17 07:16 01/24/17 07:16 01/24/17 07:16 Intake & Output 01/23/17 01/24/17 01/25/17 06:59 06:59 06:59 Intake Total 3159 4685 Output Total 5955 2200 Balance -2796 2485 Weight 87.1 kg 88.2 kg General appearance: PRESENT: no acute distress, cooperative Head exam: PRESENT: normocephalic Eye exam: PRESENT: EOMI Mouth exam: PRESENT: moist, neck supple Neck exam: ABSENT: JVD Respiratory exam: PRESENT: clear to auscultation jesus. ABSENT: rhonchi, wheezes Cardiovascular exam: PRESENT: RRR. ABSENT: gallop GI/Abdominal exam: PRESENT: soft. ABSENT: distended Extremities exam: PRESENT: pedal edema Neurological exam: PRESENT: alert, awake, oriented to situation, other - Speech has improved. Skin exam: PRESENT: dry, warm. ABSENT: cyanosis Results Laboratory Results: 01/24/17 04:19 01/24/17 04:19 01/24/17 01/24/17 04:19 04:19 WBC 16.9 H RBC 3.48 L Hgb 10.4 L Hct 30.6 L MCV 88 MCH 29.8 MCHC 33.8 RDW 13.3 Plt Count 372 Sodium 139.8 Potassium 3.7 Chloride 106 Carbon Dioxide 29 Anion Gap 5 BUN 17 Creatinine 0.69 Est GFR ( Amer) > 60 Est GFR (Non-Af Amer) > 60 Glucose 101 Calcium 8.2 L 01/13/17 01/13/17 01/13/17 04:25 08:33 12:35 Creatine Kinase 17075 H 45350 H 54062 H 01/13/17 01/13/17 01/14/17 16:05 20:15 01:10 Creatine Kinase 60269 H 65167 H 19333 H 01/14/17 01/15/17 01/16/17 06:12 04:15 04:05 Creatine Kinase 65315 H 55216 H 15063 H 01/17/17 01/19/17 01/20/17 04:13 04:50 03:57 Creatine Kinase 34988 H 54460 H 61349 H 01/21/17 01/22/17 01/24/17 03:59 06:29 04:19 Creatine Kinase 5271 H 3027 H 1318 H Impressions: Cervical Spine CT 01/12/17 00:00 IMPRESSION: NO ACUTE OR SIGNIFICANT FINDINGS IN THE CERVICAL SPINE. Head CT 01/12/17 00:00 IMPRESSION: NORMAL BRAIN CT WITHOUT CONTRAST. Shoulder X-Ray 01/14/17 06:00 IMPRESSION: NO RADIOGRAPHIC EVIDENCE OF ACUTE INJURY. The limitation. Venous Doppler Study 01/14/17 14:36 IMPRESSION: NO EVIDENCE DVT OR SVT IN THE RIGHT ARM. Lumbar Spine X-Ray 01/20/17 00:00 IMPRESSION: Mild decrease in the L3-L4 disc space height. No other significant vertebral compression or disc space reduction. Other findings as noted above Tibia/Fibula X-Ray 01/20/17 00:00 IMPRESSION: NEGATIVE STUDY OF THE RIGHT TIBIA AND FIBULA. NO RADIOGRAPHIC EVIDENCE OF ACUTE INJURY. Chest X-Ray 01/20/17 06:00 IMPRESSION: Mild residual haziness -congestion of bilateral lower lobes. Some interval improvement. Head MRI 01/23/17 00:00 IMPRESSION: NORMAL MRI OF THE BRAIN WITHOUT INTRAVENOUS GADOLINIUM CONTRAST. EVIDENCE OF ACUTE STROKE: NO. Lumbar Spine MRI 01/23/17 00:00 IMPRESSION: Mild thecal sac compression at the L3-L4 level due to a small disc bulge and mild spondylosis. Assessment & Plan - Diagnosis (1) Acute respiratory failure Qualifiers: Respiratory failure complication: unspecified whether with hypoxia or hypercapnia Qualified Code(s): J96.00 - Acute respiratory failure, unspecified whether with hypoxia or hypercapnia Is this a current diagnosis for this admission?: Yes (2) Aspiration into airway Qualifiers: Encounter type: initial encounter Qualified Code(s): T17.908A - Unspecified foreign body in respiratory tract, part unspecified causing other injury, initial encounter Is this a current diagnosis for this admission?: Yes (3) Hypovolemic shock Is this a current diagnosis for this admission?: Yes (4) Alcohol intoxication Qualifiers: Complication of substance-induced condition: with unspecified complication Qualified Code(s): F10.929 - Alcohol use, unspecified with intoxication , unspecified Is this a current diagnosis for this admission?: No (5) Rhabdomyolysis Qualifiers: Rhabdomyolysis type: non-traumatic Qualified Code(s): M62.82 - Rhabdomyolysis Is this a current diagnosis for this admission?: Yes (6) Alcohol dependence Qualifiers: Substance use status: with intoxication Complication of substance- induced condition: with unspecified complication Qualified Code(s): F10.229 - Alcohol dependence with intoxication, unspecified Is this a current diagnosis for this admission?: Yes (7) Elevated LFTs Is this a current diagnosis for this admission?: Yes (8) Hypernatremia Is this a current diagnosis for this admission?: Yes (9) Hypokalemia Is this a current diagnosis for this admission?: Yes (10) Insect bites and stings Is this a current diagnosis for this admission?: Yes (11) Foot drop, right Is this a current diagnosis for this admission?: Yes - Time Time Spent with patient: 25-34 minutes - Plan Summary Plan Summary: Patient is going to complete antibiotics today. We are going to discharge the patient in a.m. with family. They wanted to take him to [place] where he can have physical therapy. This has been arrange by planner internship. Continue supportive care. Decrease intravenous fluids. Transition to oral steroids. Transition to oral thiamine folic acid and multivitamin and likewise discontinue diuretics.
[2017-01-24] MEDS: HEPARIN SOD (PORCINE) 5,000 UNIT/ML 1 ML SYRINGE SUBCUT SCH ×2 (09:43→21:52)
[2017-01-24] MEDS: DIVALPROEX SODIUM 500 MG TAB.SR.24H PO SCH ×2 (09:43→21:52)
[2017-01-24] MEDS: FAMOTIDINE 20 MG TABLET PO SCH ×2 (09:44→21:52)
[2017-01-24] MEDS ORDERED: PREDNISONE 20 MG TABLET PO SCH (10:00)
--- NOTE | 2017-01-24 12:48 | PDOC PROGRESS REPORT ---
Subjective Subjective:: Currently complains of pain in his right lower extremity is noting improvement. Has begun ambulation w/ a RW. Patient still unable to discuss exact mechanism of his injury. States the pain is at his knee and below and is unable to move his leg. States improved feeling along his calf Physical Exam Vital Signs: Temp Pulse Resp BP Pulse Ox 98.3 F 72 16 148/98 H 98 01/24/17 07:16 01/24/17 07:16 01/24/17 07:16 01/24/17 07:16 01/24/17 07:16 Intake & Output 01/23/17 01/24/17 01/25/17 06:59 06:59 06:59 Intake Total 3159 4685 Output Total 5955 2200 Balance -2796 2485 Weight 87.1 kg 88.2 kg General appearance: PRESENT: no acute distress, cooperative Musculoskeletal exam: PRESENT: other - Right LE: DF 0/5, PF 1/5, EHL/FHL 0/5. Lacks Sensation along entire foot. Cap < 2sec. dorsalis pedis pulse 2+. Full knee and hip range of motion. Negative Tinel's along the fibular head. No pain with knee range of motion. Right upper extremity: Previous blister along the lateral deltoid demonstrates healing. Swelling notably improved. Patient has full elbow wrist and hand range of motion. No sensory deficits. Results Laboratory Results: 01/24/17 04:19 01/24/17 04:19 01/24/17 01/24/17 04:19 04:19 WBC 16.9 H RBC 3.48 L Hgb 10.4 L Hct 30.6 L MCV 88 MCH 29.8 MCHC 33.8 RDW 13.3 Plt Count 372 Sodium 139.8 Potassium 3.7 Chloride 106 Carbon Dioxide 29 Anion Gap 5 BUN 17 Creatinine 0.69 Est GFR ( Amer) > 60 Est GFR (Non-Af Amer) > 60 Glucose 101 Calcium 8.2 L 01/13/17 01/13/17 01/13/17 04:25 08:33 12:35 Creatine Kinase 48394 H 45766 H 96194 H 01/13/17 01/13/17 01/14/17 16:05 20:15 01:10 Creatine Kinase 28685 H 86923 H 31331 H 01/14/17 01/15/17 01/16/17 06:12 04:15 04:05 Creatine Kinase 93838 H 85472 H 14651 H 01/17/17 01/19/17 01/20/17 04:13 04:50 03:57 Creatine Kinase 96818 H 06859 H 02161 H 01/21/17 01/22/17 01/24/17 03:59 06:29 04:19 Creatine Kinase 5271 H 3027 H 1318 H Impressions: Cervical Spine CT 01/12/17 00:00 IMPRESSION: NO ACUTE OR SIGNIFICANT FINDINGS IN THE CERVICAL SPINE. Head CT 01/12/17 00:00 IMPRESSION: NORMAL BRAIN CT WITHOUT CONTRAST. Shoulder X-Ray 01/14/17 06:00 IMPRESSION: NO RADIOGRAPHIC EVIDENCE OF ACUTE INJURY. The limitation. Venous Doppler Study 01/14/17 14:36 IMPRESSION: NO EVIDENCE DVT OR SVT IN THE RIGHT ARM. Lumbar Spine X-Ray 01/20/17 00:00 IMPRESSION: Mild decrease in the L3-L4 disc space height. No other significant vertebral compression or disc space reduction. Other findings as noted above Tibia/Fibula X-Ray 01/20/17 00:00 IMPRESSION: NEGATIVE STUDY OF THE RIGHT TIBIA AND FIBULA. NO RADIOGRAPHIC EVIDENCE OF ACUTE INJURY. Chest X-Ray 01/20/17 06:00 IMPRESSION: Mild residual haziness -congestion of bilateral lower lobes. Some interval improvement. Head MRI 01/23/17 00:00 IMPRESSION: NORMAL MRI OF THE BRAIN WITHOUT INTRAVENOUS GADOLINIUM CONTRAST. EVIDENCE OF ACUTE STROKE: NO. Lumbar Spine MRI 01/23/17 00:00 IMPRESSION: Mild thecal sac compression at the L3-L4 level due to a small disc bulge and mild spondylosis. Assessment & Plan - Diagnosis (1) Rhabdomyolysis Qualifiers: Rhabdomyolysis type: non-traumatic Qualified Code(s): M62.82 - Rhabdomyolysis Is this a current diagnosis for this admission?: Yes (2) Foot drop, right Is this a current diagnosis for this admission?: YesPlan: As the patient's right upper extremity he has no evidence of neurologic deficit and this is showing improvement patient's major issue is his right lower extremity where he presents with a foot drop with notable weakness and hypoesthesia. This is likely secondary to compression neurapraxia given the patient was found with multiple bruises on the right lower extremity MRI fails to demonstrate compressive lesion which would explain patient's global right lower extremity weakness. At this point we will continue observation. I have ordered an AFO which will improve patient's ambulation. Will obtain neurodiagnostic studies as an outpatient.
[2017-01-24] MEDS: NORMAL SALINE 1000 ML 1,000 ML IV PRN (16:05)
[2017-01-24] MEDS: MULTIVITAMIN TABLET PO SCH (18:04)
[2017-01-24] MEDS: FOLIC ACID 1 MG TABLET PO SCH (18:04)
[2017-01-24] MEDS: THIAMINE HCL 100 MG TABLET PO SCH (18:05)
[2017-01-24] MEDS ORDERED: BUSPIRONE HCL 10 MG TABLET PO SCH (22:00)
[2017-01-25] MEDS: NORMAL SALINE 1000 ML 1,000 ML IV PRN (01:41)
[2017-01-25] MEDS ORDERED: BUSPIRONE HCL 10 MG TABLET PO SCH (08:00)
--- NOTE | 2017-01-25 08:09 | PDOC DISCHARGE SUMMARY ---
General - Admit/Disc Date/PCP Admission Date/Primary Care Provider: 01/13/17 00:59 Discharge Date: 01/25/17 - Discharge Diagnosis (1) Acute respiratory failure Is this a current diagnosis for this admission?: Yes (2) Aspiration into airway Is this a current diagnosis for this admission?: Yes (3) Hypovolemic shock Is this a current diagnosis for this admission?: Yes (4) Alcohol intoxication Is this a current diagnosis for this admission?: No (5) Rhabdomyolysis Is this a current diagnosis for this admission?: Yes (6) Alcohol dependence Is this a current diagnosis for this admission?: Yes (7) Elevated LFTs Is this a current diagnosis for this admission?: Yes (8) Hypernatremia Is this a current diagnosis for this admission?: Yes (9) Hypokalemia Is this a current diagnosis for this admission?: Yes (10) Insect bites and stings Is this a current diagnosis for this admission?: Yes (11) Foot drop, right Is this a current diagnosis for this admission?: Yes (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 Is this a current diagnosis for this admission?: Yes - Additional Information Resuscitation Status: Full Code Discharge Diet: Regular Discharge Activity: Activity As Tolerated, Balance Activity w/Rest, Slowly Increase Activity Home Medications: Buspirone HCl [Buspar 10 mg Tablet] 5 mg PO QAM #30 tablet 01/25/17 Buspirone HCl [Buspar 10 mg Tablet] 10 mg PO QHS #30 tablet 01/25/17 Divalproex Sodium [Depakote ER 500 mg Tab.sr] 500 mg PO Q12 #60 tab.sr.24h 01/25 Folic Acid [Folvite 1 mg Tablet] 1 mg PO QPM #30 tablet 01/25/17 Multivitamin [Tab-A-Francie (Multiple Vitamin) Tablet] 1 tab PO QPM tablet Prednisone [Sterapred Ds] 1 pkg PO ASDIR PRN 12 Days 01/25/17 Thiamine HCl [Thiamine 100 mg Tablet] 100 mg PO QPM #30 tablet 01/25/17 Additional Information: AFO for the foot drop. Wheeled walker. Outpatient physical therapy in [place] as arranged. Stop alcohol. History of Present Illness Patient complains of: Found unresponsive History of Present Illness: BLAINE CANDELARIO is a 31 year old male, with known chronic tobacco and alcohol dependence, brought to the emergency room for above complaint, after being found by family or friends on the floor of his camper. Reportedly surrounded by empty alcohol bottles. Patient has been discussed with emergency room physician who evaluated the patient. Patient is intubated and still under the influence of severe acute alcohol intoxication and is able to provide no history whatsoever in terms of acute or chronic events, review of systems, personal habits, family history, etc. No friends or family are present. No prior inpatient records available for review. Upon arrival, hypotensive, with a Blackwell Coma Scale of 3. Intubated for airway protection by emergency room physician. Pressure has responded nicely to IV fluid, not requiring any vasopressor. Has not required any sedation since initial intubation with 50 mcg of fentanyl approximately 7:30 PM. Has been breathing over the ventilator. Pupils equal and reactive to light. Was found with ants crawling on him, along with perhaps some ant bites on his posterior skin with hives. Was given half milligram of intramuscular epinephrine, but overall, his clinical picture was not felt consistent with anaphylactic reaction. According to cousin, who was present earlier, he has not been well for the past 2 weeks, stumbling and falling. Was evaluated in [place] emergency room 2 weeks ago after suffering a syncopal episode at a construction site. Discharged from the emergency room. Since then, regular episodes of vomiting, with confusion and lethargy. No further information available this point in time.. Dictation via voice recognition software. Laboratory results are listed in [employer] and are reviewed. X-ray summary results are listed below, with full report(s) reviewed. . EKG reviewed. No prior EKG available for comparison. Social history/personal habits: Reportedly living in a camper. Heavy tobacco and alcohol use. Reportedly no illicit drug use. No further information available this point in time. No known drug allergies Home medications reportedly none. Hospital Course Hospital Course: The patient was admitted to the intensive care unit. Patient was intubated and is on mechanical ventilator. Chest x-ray revealed findings suggestive of aspiration. Patient started on broad-spectrum antibiotics and likewise referred to pulmonary for ventilator management. Patient was found to have rhabdomyolysis and metabolic acidosis. Patient was placed on intravenous fluid hydration with alkalinization of his urine with sodium bicarbonate infusion. Nephrology was consulted. Patient noted with multiple insect bites and swelling on the extremity mainly on the right. Patient was placed on intravenous steroids and antihistamines. There was a question of a fracture or dislocation on the right shoulder and orthopedics was also consulted. Likewise there was a question of compartment syndrome. Serial x-rays were obtained including the shoulder, the tibia and the fibula, and the lumbar spine. There were no acute abnormalities reported. Tube feedings were started, and supportive care were maintained. Patient subsequently slowly improved and was extubated. The patient's upper extremity swelling improved. He also has a venous Doppler on the extremity showing no thrombosis. Patient subsequently was successfully extubated. Patient was then transferred to telemetry floor and physical therapy was begun. Patient upon extubation and return of consciousness has weakness on the right upper and lower extremity but more in the lower extremity w/ foot drop. This was attributed to compression neuropathy probably related to his prolonged immobilization. He had an MRI of his lumbar spine as well as the brain which did not reveal any acute abnormality. Lumbar spine MRI on this showed mild compression deformity from a disc bulging. With physical therapy the patient improved and had some mobility especially on the upper extremity. At this point it was recommended to him to have physical therapy in a subacute or acute facility. Patient and family however opted to have therapy closer to home in [place] and therefore this was arranged by estate planner. The patient completed antibiotic therapy for aspiration pneumonia. His steroids were shifted to oral and tapered. AFO device was prescribed on the patient for his foot drop on discharge by orthopedic. In terms of the patient's rhabdomyolysis his CPK significantly improved,. The rest of the hospital stay is unremarkable. Physical Exam Vital Signs: Temp Pulse Resp BP Pulse Ox 98.1 F 68 20 157/99 H 98 01/24/17 23:57 01/24/17 23:57 01/24/17 23:57 01/24/17 23:57 01/24/17 23:57 Intake & Output 01/24/17 01/25/17 01/26/17 06:59 06:59 06:59 Intake Total 0925 4353 Output Total 8210 2725 Balance 2485 628 Weight 88.2 kg 77.5 kg General appearance: PRESENT: no acute distress, cooperative Head exam: PRESENT: normocephalic Eye exam: PRESENT: EOMI Mouth exam: PRESENT: moist, neck supple Neck exam: ABSENT: JVD Respiratory exam: PRESENT: clear to auscultation jesus Cardiovascular exam: PRESENT: RRR GI/Abdominal exam: ABSENT: distended Extremities exam: PRESENT: pedal edema Neurological exam: PRESENT: alert, awake, oriented to person, oriented to place , oriented to time, oriented to situation Skin exam: PRESENT: dry, warm. ABSENT: cyanosis Results Laboratory Results: 01/24/17 04:19 01/24/17 04:19 01/13/17 01/13/17 01/13/17 04:25 08:33 12:35 Creatine Kinase 00833 H 48509 H 09641 H 01/13/17 01/13/17 01/14/17 16:05 20:15 01:10 Creatine Kinase 99332 H 11866 H 07734 H 01/14/17 01/15/17 01/16/17 06:12 04:15 04:05 Creatine Kinase 91179 H 37060 H 57001 H 01/17/17 01/19/17 01/20/17 04:13 04:50 03:57 Creatine Kinase 64580 H 38160 H 34282 H 01/21/17 01/22/17 01/24/17 03:59 06:29 04:19 Creatine Kinase 5271 H 3027 H 1318 H Impressions: Cervical Spine CT 01/12/17 00:00 IMPRESSION: NO ACUTE OR SIGNIFICANT FINDINGS IN THE CERVICAL SPINE. Head CT 01/12/17 00:00 IMPRESSION: NORMAL BRAIN CT WITHOUT CONTRAST. Shoulder X-Ray 01/14/17 06:00 IMPRESSION: NO RADIOGRAPHIC EVIDENCE OF ACUTE INJURY. The limitation. Venous Doppler Study 01/14/17 14:36 IMPRESSION: NO EVIDENCE DVT OR SVT IN THE RIGHT ARM. Lumbar Spine X-Ray 01/20/17 00:00 IMPRESSION: Mild decrease in the L3-L4 disc space height. No other significant vertebral compression or disc space reduction. Other findings as noted above Tibia/Fibula X-Ray 01/20/17 00:00 IMPRESSION: NEGATIVE STUDY OF THE RIGHT TIBIA AND FIBULA. NO RADIOGRAPHIC EVIDENCE OF ACUTE INJURY. Chest X-Ray 01/20/17 06:00 IMPRESSION: Mild residual haziness -congestion of bilateral lower lobes. Some interval improvement. Head MRI 01/23/17 00:00 IMPRESSION: NORMAL MRI OF THE BRAIN WITHOUT INTRAVENOUS GADOLINIUM CONTRAST. EVIDENCE OF ACUTE STROKE: NO. Lumbar Spine MRI 01/23/17 00:00 IMPRESSION: Mild thecal sac compression at the L3-L4 level due to a small disc bulge and mild spondylosis. Qualifiers PATEINT BEING DISCHARGED WITH ANY OF THE FOLLOWING DIAGNOSIS?: No Plan Discharge Plan: Patient will follow up with physician of choice in [place] in 3-5 days. Time Spent: Less than 30 Minutes
[2017-01-25 08:26] VITALS: BP 140/91
== END 2017-01-25 08:50 | disposition home or self-care (01) | DRG 207 ==
LOC: ER 19:39 → EH 23:54 → UNDOADMIN 23:54 → EH 01-13 00:59 → ICU 01-13 02:05 → 5 01-21 13:22
PROVIDERS: ADMIT Family Medicine; ATTEND Family Medicine
PROC: 5A1955Z Respiratory Ventilation, Greater than 96 Consecutive Hours (ICD-10-PCS; principal; 2017-01-13)
PROC: 0BH17EZ Insertion of Endotracheal Airway into Trachea, Via Natural or Artificial Opening (ICD-10-PCS; 2017-01-13)
DX: J96.00 Acute respiratory failure, unspecified whether with hypoxia or hypercapnia (principal); R57.1 Hypovolemic shock; G93.40 Encephalopathy, unspecified; M62.82 Rhabdomyolysis; E87.0 Hyperosmolality and hypernatremia; E87.2 Acidosis; T17.908A Unspecified foreign body in respiratory tract, part unspecified causing other injury, initial encounter; F10.229 Alcohol dependence with intoxication, unspecified; E87.6 Hypokalemia; E83.51 Hypocalcemia; N28.9 Disorder of kidney and ureter, unspecified; M21.371 Foot drop, right foot; G62.9 Polyneuropathy, unspecified; T14.8 Other injury of unspecified body region; Z79.899 Other long term (current) drug therapy; K21.9 Gastro-esophageal reflux disease without esophagitis; F17.200 Nicotine dependence, unspecified, uncomplicated
CPT/HCPCS: 36415; 70450; 70551; 71010; 72110; 72125; 72148; 80048; 80053; 80307; 81001; 82040; 82140; 82550; 82803; 82962; 83605; 83735; 84100; 85025; 85027; 85610; 85730; 87040; 87070; 87077; 87086; 87186; 87205; 93005; 93010; 93971; 94002; 94003; 94640; 94799; 96361; 96365; 96372; 96375; 99291; 99292; J0171; J0295; J0360; J0610; J0696; J0743; J1100; J1200; J1644; J1940; J2060; J2270; J2310; J2704; J2920; J2930; J3010; J3411; J3480; J3490; J7030; J7060; J7512; J7620; S0028